=== PATIENT | male | born 1945 | race Caucasian/White ===

== ENCOUNTER 2024-11-03 08:11 | Outpatient (CLI) | payer MEDICARE, SELFPAY ==
--- NOTE | ~2024-11-03 | CT_ITS ---
EXAMINATION: CT abdomen pelvis wo/w con DATE: 11/03/2024 09:07 INDICATION: Hematuria. TECHNIQUE: Computed tomography (CT) of the abdomen and pelvis was performed without and with intraven ous contrast using a total of 130 mL Omnipaque-350 intravenous contrast with a double-bolus technique for simultaneous opacification of the renal parenchyma and renal collecting system. Automated exposu re control and iterative reconstruction technique were employed. The dose-length product was 1794.10 mGy-cm. COMPARISON: None FINDINGS: The visualized portions of the lung bases demonstrate mild atelectasis. There is a 5 mm nodule in lef t lower lobe, likely benign. No pleural effusion. The heart size is normal. No pericardial effusion. There are coronary artery calcifications. There are calcifications of the aortic valve. Calcification s in the liver and spleen are consistent with old granulomatous disease. The gallbladder, pancreas, a drenal glands, and right kidney are normal. There is a 1.9 cm cyst in left kidney. The ureters are we ll opacified and are normal. The bladder is normal. The prostate is moderately enlarged. There are bi lateral inguinal hernias containing fat. Stool distends the rectum. There are no pathologically enlar ged lymph nodes. There is no free intraperitoneal fluid. There is severe lumbar spondylosis. There is moderate thoracic spondylosis. IMPRESSION: 1. No etiology for hematuria. Reviewed, dictated and finalized at location A. TERY COUNSELOR
--- NOTE | ~2024-11-03 | XR_ITS ---
EXAMINATION: XR abdomen/kub 1V DATE: 11/03/2024 08:35 INDICATION: Hematuria. TECHNIQUE: A supine view of the abdomen on 2 radiographs was obtained. COMPARISON: CT abdomen and pelvis 11/03/2024 FINDINGS: There are no dilated loops of bowel. There is a large volume of stool in the colon. There a re phleboliths in the pelvis. IMPRESSION: 1. No urolithiasis. Reviewed, dictated and finalized at location A. L BILLING SPECIALIST IMPRESSION: 1. No urolithiasis.
--- OUTSIDE RECORDS SUMMARY | 2024-11-03 08:16 | XMS_ITS | Clinical Summary ---
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 Telephone Name Role Phone HIRO HAINES MD Primary Care Provider Reason for Visit and Chief Complaint The Chief Complaint is: 6 month check up, has a trigger finger on his right hand, has had carpal tunnel surgery on that side twice, had a test done at [facility] that he would like to discuss Problems Includes: Problems addressed during this encounter and other active Problems Current Visit Onset Date Resolved Date Provider Conditio n Status Actinic Keratosis 12/30/2011 HIRO HAINES MD Active Last Documented On 2 3:40PM ; [facility] Benign Prostatic Hypertrophy 12/30/2011 HIRO HAINES MD Active Last Documented On 2 11:16PM ; [facility] Hyperlipidemia 01/16/2009 HIRO HAINES MD Active Last Documented On 0 2:41PM ; [facility] Past Visits Onset Date Resolved Date Provider Condition Status Trigger Finger of Right Middle Finger 05/27/2023 JOSE RDZ DO Active Last Documented On 3 2:33PM ; [facility] Tenosynovitis De Quervain's 04/30/2022 MERCEDES Archer Active Last Documented On 2 9:27AM ; [facility] Note: left Carpal Tunnel Syndrome Right 12/25/2021 MERCEDES Archer Active Last Documented On 2 9:53AM ; [facility] Note: right carpal tunnel revision on 08/[address] 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 TONO ONEIL MD Active Last Documented On 1 3:46PM ; [facility] Tingling of the Hands 12/06/2019 HIRO DIAZ MD Active Last Documented On 09/16/2021 1:52PM ; [facility] Note: Unchanged Sciatica 09/19/2019 OLGA LIDIA RILEY PA-C Act david Last Documented On 09/19/2019 3:30PM ; [facility] Note: --has done bee venom therapy which has helped Plan of Treatment Referred to cardiology Dr. Lozano for elevated calcium score and positive family history. Refills on medication are provided to the patient. Your heart disease risk assessment score for the next 10 years is 22.8%. Reviewed recent labs with the patient and all questions were answered. We discussed lifestyle recommendations including the importance of a healthy diet and exercising as tolerated. Maintain a healthy diet. Encouraged to walk in the form of exercise. Stay well hydrated. Have more water. Follow up as scheduled. IReta, scribing the following service on behalf of Dr. Martha Kamara on 04/06/2023. This note has been reviewed by the provider before submitting. - Last Documented On 04/11/2023 5:52PM ; [facility] Pending Tests Order Diagnosis Results Due Ordering P [place] Therapy - Physical Therapy Physical Therapy Pain in right wrist 10/05/23 HIRO NGUYEN MD Last Documented On 4 4:06PM ; [facility] Therapy - Occupational Therapy Occupational Therapy Pain in right wrist 10/05/23 HIRO HAINES MD Last Documented On 4 4:06PM ; [facility] Lab LIPID PANEL 04/02/24 HIRO MATTHEWS MD Last Documented On 4 8:04AM ; [facility] Lab CMP 04/02/24 HIRO DIAZ MD Last Documented On 4 8:04AM ; [facility] Referrals To Diagnosis Fruit Bar Maker THIEN LOZANO MD [place] heart d isease of augustine coronary artery w/o ang pctrs Note: Referred to cardiology Dr. Lozano for elevated calcium score and positive family history. 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] Coronary artery disease - Last Documented On 04/11/2023 5:52PM ; [facility] - [N40.0 - Benign prostatic hyperplasia without lower urinary tract symptoms] Benign prostatic hypertrophy - Last Documented On 04/11/2023 5:52PM ; [facility] - [E78.2 - Mixed hyperlipidemia] Hyperlipidemia - Last Documented On 04/11/2023 5:52PM ; [facility] - [L57.0 - Actinic keratosis] Actinic keratosis - Last Documented On 04/11/2023 5:52PM ; [facility] - [M65.30 - Trigger finger, unspecified finger] Right trigger finger (acquired) - Last Documented On 04/11/2023 5:52PM ; [facility] Instructions Includes: Instructions from this encounter Education and Decision Aids were provided during visit for: Patient education about home safety plans for prevention of falls : Patient completed a Fall risk assesment and was provided fall risk education materials Last Documented On 3 8:11AM ; [facility] Medical Equipment - Implanted Devices Includes: Current Devices No Medical Equipment Recorded Medications Includes: Medications discussed during this encounter and other current Medications New / Renewed during this visit HIRO HAINES MD on 04/06/2023 Rosuvastatin Calcium 10 MG Oral Tablet Provider: HIRO Caro 90 day supply: 90 tablet, 3 refills Diagnosis: Mixed hyperlipidemia TAKE 1 TABLET BY MOUTH AT BEDTIME Pharmacy: [facility] - [address] [place] [address], [id number] - Last Documented On 3 8:50AM By HIRO HAINES MD ; [facility] Current Medications (continue as prescribed) Tadalafil 5 MG Oral Tablet 10/05/2023 Provider: Suzi HAINES MD Diagnosis: One tablet daily or can take 2-4 tablets (10-20mg) every 72 hours prn sexual activity Last Documented On 4 9:30AM By HIRO HAINES MD ; [facility] EQ Aspirin Adult Low Dose 81 MG Oral Tablet Delayed Release 07/14/2023 Provider: THIEN LOZANO MD Diagnosis: Last Documented On 10/05/2023 8:14AM By Melany HENRIQUEZ ; [facility] Melatonin 5 MG Oral Capsule 10/06/2022 Provider: Diagnosis: Last Documented On 10/06/2022 10:00AM By Melany HENRIQUEZ ; [facility] Tamsulosin HCl 0.4MG Oral Capsule 04/05/2019 Provide r: Diagnosis: Last Documented On 9 9:16AM By HIRO HAINES MD ; [facility] Medications Administered Includes: Administered Medications from this encounter No Administered Medications Recorded Vital Signs Includes: Vital Signs from this encounter Vital Name 04/06/2023 08:11A Blood Pressure Sitting R 122/82 BP Cuff Size Regular Pulse Rate-Sitting (bpm) 72 Respiration Rate (breaths/min) 18 Height (in) 73 Weight (lb) 204 Body Mass Index 26.9 Body Surface Area 2.2 Oxygen Saturation (%) 96 Last Documented: On 04/06/2023 8:19AM ; [facility] Results Includes: Results discussed during this encounter No Results Recorded For Specified Dates History of Present Illness Includes: History of Present Illness from this encounter HPI ARTUR ROMERO is a 77 year old male. Source of patient information was patient ? Allergy list reviewed ? Medication list reviewed - Feeling fine - No chest pain or discomfort - No dyspnea - and No cough - No abdominal pain Artur Romero is a pleasant 77-year-old male who presents to our clinic for a 6-month check-up. He has a trigger finger on his right hand. He has had carpal tunnel surgery on that side twice. He had a test done at [facility] that he would like to discuss today. He has a chronic cough. His blood pressure is well-controlled in the clinic today at 122/82. He denies any chest pain, palpitations, or shortness of breath. He is eating well. He is also sleeping well with melatonin. His bowels are moving well. He has lost 3 lbs since his last visit which was in 09/2022, and he currently weighs 204 lbs. He has a history of hyperlipidemia for which he is taking rosuvastatin 10 mg as directed with no concerns. Reviewed blood work with the patient. PSA is normal at 0.9, and CMP is within the normal range. His lipid panel revealed that his total cholesterol is normal at 194, HDL is 61, LDL 119, and triglycerides are 68. All questions are answered to the patient's satisfaction. He states that every time he walked in pain.Of note, he had a ruptured disc a long time ago. Later, he saw a chiropractor three or four times for the same without benefit. He states that it was like sticking a knife to his back . He states that he went to the point where he started to lose the muscle tone in his legs. He worked on it himself. Later, he started to walk again, and it helped with his pain. So he is fine now, just thought it was weird. He lost his one brother in November from heart disease. He was the middle boy in the family. Artur is the oldest and his youngest brother just had bipass surgery after a cardiac calcium test prompted by a the middle brother dying. Artur had the calcium test done and his score was low. 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 Last Documented On 3 8:10AM ; [facility] Smoking Status Unknown Procedures and Surgical History Includes: Procedures from this encounter Procedures Code Diagnosis Performing Provider Service L ocation Service Date education and instructions Last Documented On 3 8:56AM ; [facility] explanation of plan : patien t/guardian states understanding of and agreement to treatment options and plan Last Documented On 3 8:56AM ; [facility] medication list reviewed Last Documented On 3 8:56AM ; [facility] use of tobacco assessment performed 1000F Last Documented On 3 8:11AM ; [facility] standardized depression screening: negative for symptoms [id number] Last Documented On 3 8:11AM ; [facility] screening for adult depressi on: impression and score not recorded contraindicated Last Documented On 3 8:11AM ; [facility] screening for adult depression: impressi on and score 0 Last Documented On 3 8:11AM ; [facility] Reviewed & agreed to staff entries. Last Documented On 3 8:56AM ; [facility] Clinical summary provided to patient Last Documented On 3 8:56AM ; [facility] reviewed laboratory-based chemistry Last Documented On 3 8:35AM ; [facility] Henrietta heart disease risk assessment 22.8 Last Documented On 3 8:38AM ; [facility] Surgical History Last Updated History of appendectomy AGE 13 ~eyelid lift faustina 3-20 ~RT carpal tunnel 06/2020 Dr. Garcia. ~LT carpal tunnel 01/2020 Dr. Garcia. ~second right carpal tunnel surgery 5-22 Dr Rdz 10/06/2022 Last Documented On 3 8:10AM ; [facility] Prior surgery 12/25/2021 Last Documented On 3 8:10AM ; [facility] Medical History Includes: Medical History addressed during this encounter Description Last Updated No recent change in medical history 10/21 Last Documented On 3 8:10AM ; [facility] Please list all surgeries Carpal tunnel . 12/10/2020 Last Documented On 3 8:10AM ; [facility] History of arthritis ~Benign prostatic h ypertrophy 07/26/2020 Last Documented On 3 8:10AM ; [facility] History of hyperlipidemia 07/26/2020 Last Documented On 3 8:10AM ; [facility] Family History Includes: Family History addressed during this encounter Description Last Updated Paternal history of stroke/paralysis Last Documented On 3 8:10AM ; [facility] Family history of high cholesterol 12/03 Last Documented On 3 8:10AM ; [facility] Family history unchanged 10/15/2017 Last Documented On 3 8:10AM ; [facility] Review of Systems Includes: Review of Systems from this encounter Systemic: No edema. Head: No headache. Cardiovascular: No chest pain or discomfort. Pulmonary: No shortness of breath. Neurological: No dizziness and no ataxia. Psychological: No fear of falling. Past Medical: No fall in the past 6 months. Mental Status Includes: Mental Status from this encounter Description The memory was unimpaired Judgement was not impaired Functional Status Includes: Functional Status from this encounter No Functional Status Recorded Physical Exam Includes: Physical Exam from this encounter Allergies Includes: Active Allergies Substance Type Reaction Onset Date Resolved Date Statu s Welchol Allergy CONSTIPATION 04/05/2019 Active Last Documented On 4 2:57PM ; [facility] Encounters Encounter Provider Location Date Check-In Time Check-Out Time Diagnosis CHECK UP HIRO HAINES MD [facility] 04/06/20 23 8:07AM 8:59AM Hyperlipidemi a,Benign Prostatic Hypertrophy,A ctinic Keratosis,Ten osynovitis - Trigger Finger Right (Acquired),Co ronary Artery Disease Insurance Includes: Active Insurance Policies Plan Name Member ID Group # Subscriber Relationship Effect david Dates 1 - MEDICARE PART A CLAIMS/NGS [id number] ARTUR Brewster JOELLE Edinson 08/20/2011 - Unknown 2 - [employer] MEDICARE SUPPLEMENT [id number] ARTUR Neves Clinical Notes Includes: Clinical Notes from this encounter * Progress note Date Encounter Last Documented by 04/06/2023 CHECK UP Last documented on 04/11/2023; 5:52 PM, HIRO HAINES MD; [facility] Active Problems & Conditions - L57.0 - Actinic Keratosis - N40.0 - Benign Prostatic Hypertrophy - G56.01 - Carpal Tunnel Syndrome Right - right carpal tunnel revision on 01/28/[address] Rdz - E78.2 - Hyperlipidemia - G56.11 - Other Lesion of Median Nerve - Sciatica - --has done bee venom therapy which has helped - M65.4 - Tenosynovitis De Quervain's - left - R20.2 - Tingling of the Hands Chief Complaint The Chief Complaint is: 6 month check up, has a trigger finger on his right hand, has had carpal tunnel surgery on that side twice, had a test done at [facility] that he would like to discuss. History of Present Illness ARTUR ROMREO is a 77 year old male. Source of patient information was patient - Allergy list reviewed - Medication list reviewed - Feeling fine - No chest pain or discomfort - No dyspnea - and No cough - No abdominal pain Artur Romero is a pleasant 77-year-old male who presents to our clinic for a 6-month check-up. He has a trigger finger on his right hand. He has had carpal tunnel surgery on that side twice. He had a test done at [facility] that he would like to discuss today. He has a chronic cough. His blood pressure is well-controlled in the clinic today at 122/82. He denies any chest pain, palpitations, or shortness of breath. He is eating well. He is also sleeping well with melatonin. His bowels are moving well. He has lost 3 lbs since his last visit which was in 09/2022, and he currently weighs 204 lbs. He has a history of hyperlipidemia for which he is taking rosuvastatin 10 mg as directed with no concerns. Reviewed blood work with the patient. PSA is normal at 0.9, and CMP is within the normal range. His lipid panel revealed that his total cholesterol is normal at 194, HDL is 61, LDL 119, and triglycerides are 68. All questions are answered to the patient's satisfaction. He states that every time he walked in pain.Of note, he had a ruptured disc a long time ago. Later, he saw a chiropractor three or four times for the same without benefit. He states that it was like sticking a knife to his back . He states that he went to the point where he started to lose the muscle tone in his legs. He worked on it himself. Later, he started to walk again, and it helped with his pain. So he is fine now, just thought it was weird. He lost his one brother in November from heart disease. He was the middle boy in the family. Artur is the oldest and his youngest brother just had bipass surgery after a cardiac calcium test prompted by a the middle brother dying. Artur had the calcium test done and his score was low. Current Medication - [facility] Melatonin 5 MG Oral Capsule 0 days, 0 refills - Rosuvastatin Calcium 10 MG Oral Tablet TAKE 1 TABLET BY MOUTH AT BEDTIME, 90 days, 0 refills - Tamsulosin HCl 0.4MG Oral Capsule 0.4 MG One tablet daily 0 days, 0 refills Past Medical/Surgical History Reported: No recent change in medical history and Please list all surgeries: Carpal tunnel . . Surgical / Procedural: Prior surgery. Diagnoses: Hyperlipidemia. Arthritis Benign prostatic hypertrophy Surgical: - Appendectomy AGE 13 eyelid lift faustina -20 RT carpal tunnel 06/2020 Dr. Garcia. LT carpal tunnel 01/2020 Dr. Garcia. second right carpal tunnel surgery 02-08 Dr Rdz Social History Difficulty walking. Tobacco use: Current nonsmoker. 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 Functional: [PHQ-2] Patient Health Questionnaire 2 item total score: 2 (Scale: 0-6). Allergies - Welchol Reaction: CONSTIPATION Family History Family history unchanged High cholesterol Paternal: Stroke/paralysis Review Of Systems Systemic: No edema. Head: No headache. Cardiovascular: No chest pain or discomfort. Pulmonary: No shortness of breath. Neurological: No dizziness and no ataxia. Psychological: No fear of falling. Past Medical: No fall in the past 6 months. Physical Findings - Vitals taken 04/06/2023 08:11 am BP-Sitting R 122/82 mmHg 100 - 120/60 - 80 BP Cuff Size Regular Pulse Rate-Sitting 72 bpm 50 - 100 Respiration Rate 18 per min 18 - Height 73 in 64 - 74 Weight 204 lbs 121 - 205 Body Mass Index 26.9 kg/m2 Body Surface Area 2.2 m2 Oxygen Saturation 96 % 93 - 100 General Appearance: - Alert. - Well developed. - Well nourished. - In no acute distress. Ears: Right Ear: Tympanic Membrane: - Normal. Left Ear: Tympanic Membrane: - Normal. Lymph Nodes: - Normal. Lungs: - Clear to auscultation. Cardiovascular: Heart Rate And Rhythm: - Normal. Murmurs: - No murmurs were heard. Edema: - Not present. Abdomen: Palpation: - No direct tenderness in the abdomen. Neurological: - Memory was unimpaired. - Judgement was not impaired. Psychiatric: Psychiatric: Value Normal Range PHQ9 score: 0 - Mood was calm. Skin: - Normal. - Mucous membranes were not dry. Tests Laboratory-based Chemistry: Reviewed laboratory-based chemistry. Laboratory Studies: Cardiac Evaluation: [place] heart disease risk assessment 22.8. 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 - Medication list reviewed. - Education and instructions. - Clinical summary provided to patient. - Explanation of plan: patient/guardian states understanding of and agreement to treatment options and plan. Plan StartCited - Athscl heart disease of augustine coronary artery w/o ang pctrs Referral: Fruit Bar Maker Instructions: Referred to cardiology Dr. Lozano for elevated calcium score and positive family history. EndCited StartCited - Mixed hyperlipidemia Lab: LIPID PANEL Lab: CMP Rosuvastatin Calcium 10 MG tablet TAKE 1 TABLET BY MOUTH AT BEDTIME, 90 days, 3 refills EndCited StartCited - Other Follow-up 6 months labs before EndCited Referred to cardiology Dr. Lozano for elevated calcium score and positive family history. Refills on medication are provided to the patient. Your heart disease risk assessment score for the next 10 years is 22.8%. Reviewed recent labs with the patient and all questions were answered. We discussed lifestyle recommendations including the importance of a healthy diet and exercising as tolerated. Maintain a healthy diet. Encouraged to walk in the form of exercise. Stay well hydrated. Have more water. Follow up as scheduled. Reta Chavez, scribing the following service on behalf of Dr. Martha Kamara on 04/06/2023. This note has been reviewed by the provider before submitting. Practice Management Use of tobacco assessment performed; Standardized depression screening: negative for symptoms Screening for adult depression: impression and score not recorded contraindicated Screening for adult depression: impression and score 0. Health Reminders - Assess BMI satisfied 04/06/2023. - Assess Screening for Fall Risk satisfied 04/06/2023. - Assess Tobacco Use satisfied 04/06/2023. - Depression Screening satisfied 04/06/2023. - Follow up plan for Depression Screening satisfied 04/06/2023. User Defined 25 Patient education about home safety plans for prevention of falls: Patient completed a Fall risk assesment and was provided fall risk education materials.
--- OUTSIDE RECORDS SUMMARY | 2024-11-03 08:16 | XMS_ITS | Referral Summary ---
Author Organization [facility] Address [address] [place] [address] Care Team Providers Care Drafting Clerk Name Role Phone Anh Jeong MD Primary Care Provider + Source Comments [facility],non-owned Affiliates and Associated Physician Practices is amultiple site organization consisting of ambulatory clinics and hospital sitesin [place], [place], [place] and [place]. This disclosure is being madepursuant to the Care Everywhere program and may not contain all information available regarding this patient. Last updated 18.[facility] Medications * Be aware that medications may not be up to date on this document. Alwaysverify current medications with the patient. Medication Sig Dispensed Refills Start Date End Date Status colesevelam (WELCHOL) 625 MG tablet Take 1,875 mg by mouth. 03/25/2017 Active tamsulosin (FLOMAX) 0.4 MG capsule Take 0.4 mg by mouth. 05/01/2016 Active Social History Tobacco Use Types Packs/Day Years Used Date Smoking Tobacco: Never Alcohol Use Standard Drinks/Week Comments Yes 0 (1 standard drink = 0.6 oz pur e alcohol) Sex and Gender Information Value Date Recorded Sex Assigned at Not on file Gender Identity Not on file Sexual Orientation Not on file Last Filed Vital Signs Vital Sign Reading Time Taken Comments Blood Pressure - - Pulse - - Temperature - - Respiratory Rate - - Oxygen Saturation - - Inhaled Oxygen Concentration - - Weight 90.7 kg (200 lb) 03/25/2017 2:18 PM CDT Height 182.9 cm (6') 03/25/2017 2:18 PM CDT Body Mass Index 27.12 03/25/2017 2:18 PM CDT Plan of Treatment Not on file Care Teams Drafting Clerk Relationship Specialty Start Date End Date Anh Jeong MD [address] [place] [address] PCP - General 03/26/17
--- OUTSIDE RECORDS SUMMARY | 2024-11-03 08:16 | XMS_ITS | Clinical Summary ---
Author Organization [facility] Address [address] [place] [address] Phone Care Team Providers Care Television Journalist Name Role Phone HIRO HAINES MD Primary Care Provider Reason for Visit and Chief Complaint The Chief Complaint is: check up, a couple months ago he fell while sleep walking and hurt his leftshoulder which is still bothering him, his right knee is also bothering him, having trouble with constipation, has a BM once every 2-3 days, hard to go, prunes help, has a spot on his right pointer finger that is getting bigger Problems Includes: Problems addressed during this encounter and other active Problems Current Visit Onset Date Resolved Date Provider Conditio n Status Hyperlipidemia 01/16/2009 HIRO HAINES MD Active Last Documented On 0 2:41PM ; [facility] Past Visits Onset Date Resolved Date Provider Condition Status Trigger Finger of Right Middle Finger 05/27/2023 JOSE RDZ DO Active Last Documented On 3 2:33PM ; [facility] Tenosynovitis De Quervain's 04/30/2022 MERCEDES Archer Active Last Documented On 2 9:27AM ; [facility] Note: left Carpal Tunnel Syndrome Right 12/25/2021 MERCEDES Archer Active Last Documented On 2 9:53AM ; [facility] Note: right carpal tunnel revision on 08/[address] 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 TONO ONEIL MD Active Last Documented On 1 3:46PM ; [facility] Tingling of the Hands 12/06/2019 HIRO DIAZ MD Active Last Documented On 09/16/2021 1:52PM ; [facility] Note: Unchanged Sciatica 09/19/2019 OLGA LIDIA RILEY PA-C Act david Last Documented On 09/19/2019 3:30PM ; [facility] Note: --has done bee venom therapy which has helped Actinic Keratosis 12/30/2011 HIRO HAINES MD Active Last Documented On 2 3:40PM ; [facility] Benign Prostatic Hypertrophy 12/30/2011 HIRO HAINES MD Active Last Documented On 2 11:16PM ; [facility] Plan of Treatment ask derm this week ( wednesday appt) about spot on finger. Ordered labs for next time. [facility]. Try Voltaren gel to help with pain in his right knee and left shoulder. We discussed lifestyle recommendations including the importance of a healthy diet and exercising as tolerated. Maintain a healthy diet. Encouraged to walk in the form of exercise. Stay well hydrated. Have more water. - Last Documented On 10/06/2022 11:47PM ; [facility] Pending Tests Order Diagnosis Results Due Ordering P rovider Therapy - Physical Therapy Physical Therapy Pain in right wrist 10/05/23 HIRO NGUYEN MD Last Documented On 4 4:06PM ; [facility] Therapy - Occupational Therapy Occupational Therapy Pain in right wrist 10/05/23 HIRO HAINES MD Last Documented On 4 4:06PM ; [facility] Lab LIPID PANEL 04/02/24 HIRO MATTHEWS MD Last Documented On 4 8:04AM ; [facility] Lab CMP 04/02/24 HIRO DIAZ MD Last Documented On 4 8:04AM ; [facility] Education and Decision Aids were provided during visit for: Patient education about home safety plans for prevention of falls : Patient completed a Fall risk assesment and was provided fall risk education materials Last Documented On 3 9:55AM ; [facility] Assessments Includes: Assessments from this encounter Findings - [E78.2 - Mixed hyperlipidemia] Hyperlipidemia - Last Documented On 10/06/2022 11:47PM ; [facility] - [M25.512 - Pain in left shoulder] Arthralgia of left shoulder region - Last Documented On 10/06/2022 11:47PM ; [facility] - [M25.561 - Pain in right knee] RIGHT KNEE PAIN - Last Documented On 10/06/2022 11:47PM ; [facility] Instructions Includes: Instructions from this encounter Education and Decision Aids were provided during visit for: Patient education about home safety plans for prevention of falls : Patient completed a Fall risk assesment and was provided fall risk education materials Last Documented On 3 9:55AM ; [facility] Medical Equipment - Implanted Devices Includes: Current Devices No Medical Equipment Recorded Medications Includes: Medications discussed during this encounter and other current Medications Current Medications (continue as prescribed) Tadalafil 5 MG Oral Tablet 10/05/2023 Provider: Suzi HAINES MD Diagnosis: One tablet daily or can take 2-4 tablets (10-20mg) every 72 hours prn sexual activity Last Documented On 4 9:30AM By HIRO HAINES MD ; [facility] EQ Aspirin Adult Low Dose 81 MG Oral Tablet Delayed Release 07/14/2023 Provider: THIEN DU MD Diagnosis: Last Documented On 10/05/2023 8:14AM By Melany HENRIQUEZ ; [facility] Rosuvastatin Calcium 10 MG O ral Tablet 04/06/2023 Provider: HIRO Caro Diagnosis: Mixed hyperlipid emia TAKE 1 TABLET BY MOUTH AT BEDTIME Last Documented On 3 8:50AM By HIRO HAINES MD ; [facility] Melatonin 5 MG Oral Capsule 10/06/2022 Provider: Diagnosis: Last Documented On 10/06/2022 10:00AM By Melany HENRIQUEZ ; [facility] Tamsulosin HCl 0.4MG Oral Capsule 04/05/2019 Provide r: Diagnosis: Last Documented On 9 9:16AM By HIRO HAINES MD ; [facility] Medications Administered Includes: Administered Medications from this encounter No Administered Medications Recorded Vital Signs Includes: Vital Signs from this encounter Vital Name 10/06/2022 10:01A Blood Pressure Sitting L 130/82 BP Cuff Size Regular Pulse Rate-Sitting (bpm) 69 Respiration Rate (breaths/min) 18 Temp-Oral (F) 98 Height (in) 73 Weight (lb) 207 Body Mass Index 27.3 Body Surface Area 2.2 Oxygen Saturation (%) 96 Last Documented: On 10/06/2022 10:05A M ; [facility] Results Includes: Results discussed during this encounter No Results Recorded For Specified Dates History of Present Illness Includes: History of Present Illness from this encounter CONOR ROMERO is a 77 year old male. Source of patient information was patient ? Allergy list reviewed ? Medication list reviewed - Feeling fine - No chest pain or discomfort - No dyspnea - and No cough - No abdominal pain Artur Romero is a pleasant 77-year-old male who presents to our clinic for a 6-month follow up. He looks exhausted today. He states a couple of months ago, he fell while sleep walking and hurt his left shoulder which is still bothering him. His right knee is also bothering him. He uses bee stings on his right knee. The stings have helped. He further reports a spot on his right pointer finger that is getting bigger. He takes vitamin D supplements. He has seen Dr. Rdz, orthopedic last year in January 2022 who did right carpal tunnel surgery as it had chronic pain, and it seems to have helped. Previously, he had one surgery with Dr. Garcia, but it was not a success. His blood pressure is well-controlled in the clinic today at 130/82. He denies any chest pain, palpitations, or shortness of breath. He has gained 5 lbs since 03/2022 and he currently weighs 207 lbs. He also reports having trouble with constipation. He has a BM once every 2-3 days. It is hard for him to go. He eats 3 prunes every couple of days and that helps. 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 04/05/2019 Last Documented On 3 9:54AM ; [facility] Smoking Status Unknown Procedures and Surgical History Includes: Procedures from this encounter Procedures Code Diagnosis Performing Provider Service L ocation Service Date education and instructions Last Documented On 3 10:35AM ; [facility] explanation of plan : patien t/guardian states understanding of and agreement to treatment options and plan Last Documented On 3 10:35AM ; [facility] medication list reviewed Last Documented On 3 10:35AM ; [facility] use of tobacco assessment performed 1000F Last Documented On 3 9:55AM ; [facility] Reviewed & agreed to staff entries. Last Documented On 3 10:35AM ; [facility] Clinical summary provided to patient Last Documented On 3 10:35AM ; [facility] Surgical History Last Updated History of appendectomy AGE 13 ~eyelid lift faustina 3-20 ~RT carpal tunnel 06/2020 Dr. Garcia. ~LT carpal tunnel 01/2020 Dr. Garcia. ~second right carpal tunnel surgery - Dr Rdz 10/06/2022 Last Documented On 3 11:47PM ; [facility] Prior surgery 12/25/2021 Last Documented On 3 9:54AM ; [facility] Medical History Includes: Medical History addressed during this encounter Description Last Updated Please list all surgeries Carpal tunnel . 12/10/2020 Last Documented On 3 9:54AM ; [facility] History of arthritis ~Benign prostatic h ypertrophy 07/26/2020 Last Documented On 3 9:54AM ; [facility] History of hyperlipidemia 07/26/2020 Last Documented On 3 9:54AM ; [facility] Family History Includes: Family History addressed during this encounter Description Last Updated Paternal history of stroke/paralysis Last Documented On 3 9:54AM ; [facility] Family history of high cholesterol 12/03 Last Documented On 3 9:54AM ; [facility] Review of Systems Includes: Review of Systems from this encounter Systemic: No edema. Head: No headache. Cardiovascular: No chest pain or discomfort. Pulmonary: No shortness of breath. Neurological: Dizziness. No ataxia. Psychological: No fear of falling. Past [...] Active Last Documented On 4 2:57PM ; [facility] Encounters Encounter Provider Location Date Check-In Time Check-Out Time Diagnosis CHECK UP [facility]IN[facility] 10/06/19 23 9:48AM 10:43AM Arthralgia - Shoulder Region Left,Right Knee Pain,Hyperlipi demia Insurance Includes: Active Insurance Policies Plan Name Member ID Group # Subscriber Relationship Effect david Dates 1 - MEDICARE PART A CLAIMS/NGS [id number] ARTUR Neves 08/20/2011 - Unknown 2 - [employer] MEDICARE SUPPLEMENT [id number] ARTUR Neves Clinical Notes Includes: Clinical Notes from this encounter No Clinical Notes Recorded
--- OUTSIDE RECORDS SUMMARY | 2024-11-03 08:16 | XMS_ITS | Clinical Summary ---
Author Organization [facility] Address [address] [place] [id number] Care Team Providers Care Yard Rigger Name Role Phone Unavailable Primary Care Provider Unavailabl e Social History Tobacco Use Types Packs/Day Years Used Date Smoking Tobacco: Never Assessed Sex and Gender Information Value Date Recorded Sex Assigned at Not on file Legal Sex Male 8:50 AM CDT Gender Identity Not on file Sexual Orientation Not on file Plan of Treatment Health Maintenance Due Date Last Done Comments DTAP/TDAP/TD VACCINES (1 - Tdap) 1964 PNEUMOCOCCAL VACCINE 65+ YEARS (1 of 1 - PCV) 09/17/19 96 ZOSTER VACCINE (1 of 2) 1996 RSV VACCINE (60+ or ) (1 - 1-dose 75+ series) 2021 INFLUENZA VACCINE (#1) 2024 Insurance MEDICARE PART A AND B
--- OUTSIDE RECORDS SUMMARY | 2024-11-03 08:16 | XMS_ITS | Referral Summary ---
Author Organization [facility] [address] [facility] Address [address] [place] [address] Care Team Providers Care Manufactured Buildings Repairer Name Role Phone Elving-DialAnh MD Primary Care Provider Allergies No known active allergies Medications tamsulosin (FLOMAX) 0.4 mg extended release capsule daily 05/01/2016 Active rosuvastatin (CRESTOR) 20 mg tabletIndication s:Atherosclerosi s of tolowa dee-ni' coronary artery of tolowa dee-ni' heart without angina pectoris,Elevate d coronary artery calcium score,Hyperlipid emia LDL goal <70 Take 1 tablet (20 mg total) by mouth daily 90 tablet 3 06/08/2023 Active aspirin 81 mg enteric coated tabletIndication s:Atherosclerosi s of [place] de[place]-ni' coronary artery of [place]low[place] dee-ni' heart without angina pectoris,Elevate d coronary artery calcium score Take 1 tablet (81 mg total) by mouth daily 30 tablet 11 06/08/2023 Active Active Problems Problem Noted Date Diagnosed Date RBBB 03/31/2024 Erectile dysfunction 09/23/2023 Elevated coronary artery calcium score 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 06/08/2023 Family history of coronary artery disease 2022 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/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 Disturbance of skin sensation 12/06/2019 Overview (02/26/2021): Note: Unchanged Sciatica 09/19/2019 Overview (02/26/2021): Note: --has done bee venom therapy which has helped Peripheral vertigo, right 02/23/2019 Noise-induced hearing loss of both ears 02/24/20 19 Vertigo 02/02/2019 Otitis externa, fungal, left ear 02/02/2019 Impacted cerumen of left ear 02/02/2019 Acquired stenosis of external ear canal, left Benign prostatic hyperplasia with lower urinary tract symptoms 12/30/2011 Actinic keratosis 12/30/2011 Hyperlipidemia LDL goal <70 01/16/2009 Social History Tobacco Use Types Packs/Day Years Used Date Smoking Tobacco: Never Cigarettes Passive Smoke Exposure: Past Smokeless Tobacco: Never Tobacco Cessation:Counseling Given: Not Answered AUDIT-C Answer Date Recorded Q1: How often do you have a drink containing alc ohol? 2-3 times a week 06/08/2023 Q2: How many drinks containi ng alcohol do you have on a typical day when you are drinking? 1 or 2 06/08/2023 Q3: How often do you have si x or more drinks on one occasion? Never 06/08/2023 Personal Safety Answer Date Recorded Getting School Help Needed Not on file 09/07 Sex and Gender Information Value Date Recorded Sex Assigned at Not on file Legal Sex Male 8:23 AM CRITICAL CARE PHYSICIAN ASSISTANT Gender Identity Male 02/15/2021 10:13 AM CDT Sexual Orientation Straight 02/15/2021 10 :14 AM CDT Last Filed Vital Signs Vital Sign Reading Time Taken Comments Blood Pressure 138/82 03/31/2024 12:13 PM CDT Pulse 69 03/31/2024 9:22 AM CDT Temperature - - Respiratory Rate - - Oxygen Saturation 95% 03/31/2024 9:22 AM CDT Inhaled Oxygen Concentration - - Weight 92.1 kg (203 lb) 03/31/2024 9:22 AM CDT Height 182.9 cm (6') 03/31/2024 9:22 AM CDT Body Mass Index 27.53 03/31/2024 9:22 AM CDT Plan of Treatment Not on file Insurance MEDICARE COMMERCIAL GENERIC MEDICARE COMMERCIAL GENERIC MEDICARE COMMERCIAL GENERIC Care Teams Manufactured Buildings Repairer Relationship Specialty Start Date End Date Anh Jeong MD [address] [place] [id number] PCP - General Family Medicine 01/29/21
--- OUTSIDE RECORDS SUMMARY | 2024-11-03 08:16 | XMS_ITS | Encounter Summary ---
Author Organization [facility] Address [address] [place] [address] Care Team Providers Care Wire Mesh Gate Assembler Name Role Phone Anh Jeong MD Primary Care Provider + Encounter Details Date Type Department Care Team (Late st Contact Info) Description 02/16/2024 Lab Requisition [facility] - DermPath Lab [address] [facility] [place] [phone] Laci Foster Jr., MD [address] [place] [address] Social History Tobacco Use Types Packs/Day Years Used Date Smoking Tobacco: Never Alcohol Use Standard Drinks/Week Comments Yes 0 (1 standard drink = 0.6 oz pur e alcohol) Sex and Gender Information Value Date Recorded Sex Assigned at Not on file Gender Identity Not on file Sexual Orientation Not on file documented as of this encounter Plan of Treatment Not on file documented as of this encounter Procedures Procedure Name Priority Date/Time Associated Diagnosis Comments DERMATOPATHOLOGY Routine 02/15/2024 3:33 AM CDT documented in this encounter Results * DERMATOPATHOLOGY (02/15/2024 3:33 AM CDT) Case Report Dermatopathology Report Case: [id number] Authorizing Provider: Laci Foster Jr., MD Collected: 02/15/2024 03:33 AM Ordering Location: [facility] - Received: 02/16/2024 02:21 PM DermPath Lab Pathologist: Citlalli Crandall MD Specimen: Skin, right posterior shoulder 3:39 PM CDT DERMATOPATHOLOGY LABORATORY Final Diagnosis Specimen A. SKIN, right posterior shoulder: HYPERPLASTIC (HYPERTROPHIC) ACTINIC KERATOSIS (L57.0) 4 3:39 PM T DERMATOPATHOLOGY LABORATORY Clinical History Squamous Cell Carcinoma vs. Actinic Keratosis vs. Irritated Seborrheic Keratosis 4 3:39 PM CDT DERMATOPATHOLOGY LABORATORY Gross Description Specimen A: Received is one formalin filled container labeled with the patient's name and designated right posterior shoulder. The specimen consists of a shave biopsy measuring 8x7x2 mm. Jar 0. 3:39 PM CDT DERMATOPATHOLOGY LABORATORY Microscopic Description Specimen A. SKIN, right posterior shoulder: There is hyperkeratosis alternating with parakeratosis. There is epidermal hyperplasia with disorderly maturation of keratinocytes with nuclear pleomorphism confined to the lower half of the epidermis. 3:39 PM CDT DERMATOPATHOLOGY LABORATORY Disclaimer An external and internal positive and negative controls are appropriate for the histochemical, immunohistochemical and immunofluorescence stain(s) in this case (if any), except where stated explicitly. The performance characteristics of the stain(s) cited in this report were developed and its performance characteristic determined by the Dermatopathology Laboratory at [facility], directed by Dr. Bianca Crandall. These tests need not be, and therefore are not, approved by the [place] Food and Drug Administration. The tests are used for clinical purposes. Billing Codes Specimen Charges Stain Charges 38530 1 4 3:39 PM CDT DERMATOPATHOLOGY LABORATORY Embedded Images 3:39 PM CDT DERMATOPATHOLOGY LABORATORY Pathology/Cytolo gy TISSUE SPECIMEN FROM SKIN / Unknown 02/15/2024 3:33 AM CDT 02/16/2024 2:21 PM CDT Laci Foster Jr., MD LAB - PATHOLOGY /CYTOLOGY ORDERABLES DERMATOPATHOLOGY LABORATORY [facility] - Department of Dermatology [address] [phone] documented in this encounter Visit Diagnoses Not on filedocumented in this encounter Care Teams Wire Mesh Gate Assembler Relationship Specialty Start Date End Date Anh Jeong MD [address] [place] [phone] PCP - General 03/26/17 documented as of this encounter
--- OUTSIDE RECORDS SUMMARY | 2024-11-03 08:16 | XMS_ITS | Clinical Summary ---
Author Organization [facility] Address [address] [place] [address] Phone Care Team Providers Care Prenatal Nurse Name Role Phone Anh Thomas MD Primary Care Provider [phone] Orlando Singh MD Unavailable Unavailable Allergies No known active allergies Medications colesevelam (WELCHOL) 625 MG Tablet Take 1,875 mg by mouth 2 times daily. Active finasteride (PROSCAR) 5 MG Tablet Take 5 mg by mouth daily. Active nystatin-triamc inolone (MYCOLOG) 320074-5.1 UNIT/GM-% OintmentIndicat ions:Otitis externa, fungal, left ear Apply 3 times daily. Rub small amount into skin of outer portion of ear canal(s) BID prn using Q-tip 30 g 5 02/02/2019 Active tamsulosin (FLOMAX) 0.4 MG Capsule Take 1 capsule by mouth once daily 90 Cap 04/11/2020 Active Active Problems Problem Noted Date Diagnosed Date Peripheral vertigo, right 02/23/2019 Noise-induced hearing loss of both ears 02/24/20 19 Vertigo 02/02/2019 Impacted cerumen of left ear 02/02/2019 Otitis externa, fungal, left ear 02/02/2019 Acquired stenosis of external ear canal, left Benign prostatic hyperplasia with lower urinary tract symptoms 02/28/2016 Family History Medical History Relation Name Comments High Cholesterol Father Relation Name Status Comments Father Mother Social History Tobacco Use Types Packs/Day Years Used Date Smoking Tobacco: Never Smokeless Tobacco: Never Alcohol Use Standard Drinks/Week Comments Yes 0 (1 standard drink = 0.6 oz pur e alcohol) occasionally Sexually Active Control Partners Comments Yes Female Sex and Gender Information Value Date Recorded Sex Assigned at Not on file Legal Sex Male 10:08 PM CDT Gender Identity Not on file Sexual Orientation Not on file Last Filed Vital Signs Vital Sign Reading Time Taken Comments Blood Pressure 128/80 02/23/2019 1:57 PM CDT Pulse 72 02/23/2019 1:57 PM CDT Temperature 36 C (96.8 F) 02/23/2019 1:57 PM CDT Respiratory Rate 14 02/23/2019 1:57 PM CDT Oxygen Saturation 97% 02/23/2019 1:57 PM CDT Inhaled Oxygen Concentration - - Weight 89.8 kg (198 lb) 03/09/2019 8:18 AM CDT Height 182.9 cm (6') 02/23/2019 1:57 PM CDT Body Mass Index 26.85 02/23/2019 1:57 PM CDT Plan of Treatment Health Maintenance Due Date Last Done Comments Hepatitis C Virus (HCV) Screening 1945 Pneumococcal Immunization (50+ years) (1 of 1 - PCV) 1996 Zoster Immunization (1 of 2) 1996 Respiratory Syncytial Virus (RSV) Immunization (Adult) (1 - 1-dose 75+ series) 2021 Influenza Immunization (#1) 2024 SARS-COV-2 Immunization ( season) 2024 02/19/2021, 01/27/2021 DTaP/Tdap/Td Immunization Discontinued 05/09/2019 TdaP Immunization Completed 05/09/2019 Hepatitis B Immunization Aged Out No longer eligible based on patient's age to complete this topic Meningococcal Immunization (ACWY) Aged Out No longer eligible based on patient's age to complete this topic Rotavirus Immunization Aged Out No lo nger eligible based on patient's age to complete this topic Insurance MEDICARE COMMERCIAL GENERIC Care Teams Prenatal Nurse Relationship Specialty Start Date End Date Anh Thomas MD [address] [place] [address] PCP - General 02/26/16 Orlando Singh MD [address] [place] [address] Consulting Physician Urology 02/28/16
--- OUTSIDE RECORDS SUMMARY | 2024-11-03 08:16 | XMS_ITS ---
Care Plan - [facility] Created on: November 03, 2024 ROBE LAI : 1945 Sex: Male Author Organization [facility] Address [address] [place] [address] Phone Care Team Providers Care Physical Chemistry Professor Name Role Phone HIRO HAINES MD Primary Care Provider [phone]
--- OUTSIDE RECORDS SUMMARY | 2024-11-03 08:16 | XMS_ITS | Clinical Summary ---
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 Name Role Phone HIRO HAINES MD Primary Care Provider [phone] Reason for Visit and Chief Complaint visit for: right hand pain - The Chief Complaint is: C/O RT MIDDLE FINGER TRIGGERING, STATES IT IS STUCK Problems Includes: Problems addressed during this encounter and other active Problems Current Visit Onset Date Resolved Date Provider Conditio n Status Trigger Finger of Right Middle Finger 05/27/2023 JOSE RDZ DO Active Last Documented On 3 2:33PM ; [facility] Past Visits Onset Date Resolved Date Provider Condition Status Tenosynovitis De Quervain's 04/30/2022 MERCEDES Archer Active Last Documented On 04/30/2022 9:27AM ; [facility] Note: left Carpal Tunnel Syndrome Right 12/25/2021 MERCEDES Archer Active Last Documented On 02/09/2022 9:53AM ; [facility] Note: right carpal tunnel revision on 08/[address] 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 TONO ONEIL MD Active Last Documented On 3:46PM ; [facility] Tingling of the Hands 12/06/2019 HIRO DIAZ MD Active Last Documented On 09/16/2021 1:52PM ; [facility] Note: Unchanged Sciatica 09/19/2019 OLGA LIDIA RILEY PA-C Act david Last Documented On 09/19/2019 3:30PM ; [facility] Note: --has done bee venom therapy which has helped Actinic Keratosis 12/30/2011 HIRO HAINES MD Active Last Documented On 2 3:40PM ; [facility] Benign Prostatic Hypertrophy 12/30/2011 HIRO HAINES MD Active Last Documented On 2 11:16PM ; [facility] Hyperlipidemia 01/16/2009 HIRO HAINES MD Active Last Documented On 0 2:41PM ; [facility] Plan of Treatment We discussed conservative treatment such as trigger finger injection versus surgical trigger finger release. He wanted to move forward with trigger finger injection. This was provided for him today in the right long finger. He tolerated that injection without difficulty. He would need to wait three months before repeat injection. He can follow up with me on an as-needed basis. - Last Documented On 01/27/2024 3:25PM ; [facility] Assessments Includes: Assessments from this encounter Findings - [M65.331 - Trigger finger, right middle finger] Trigger finger of the right middle finger - Last Documented On 01/27/2024 3:25PM ; [facility] Medical Equipment - Implanted Devices Includes: Current [...] 4 9:30AM By HIRO HAINES MD ; [facility] EQ Aspirin Adult Low Dose 81 MG Oral Tablet Delayed Release 07/14/2023 Provider: THIEN DU MD Diagnosis: Last Documented On 10/05/2023 8:14AM By Melany HENRIQUEZ ; [facility] Rosuvastatin Calcium 10 MG O ral Tablet 04/06/2023 Provider: HIRO Caro Diagnosis: Mixed hyperlipid emia TAKE 1 TABLET BY MOUTH AT BEDTIME Last Documented On 3 8:50AM By HIRO HAINES MD ; [facility] Melatonin 5 MG Oral Capsule 10/06/2022 Provider: Diagnosis: Last Documented On 10/06/2022 10:00AM By Melany HENRIQUEZ ; [facility] Tamsulosin HCl 0.4MG Oral Capsule 04/05/2019 Provide r: Diagnosis: Last Documented On 9 9:16AM By HIRO HAINES MD ; [facility] Medications Administered Includes: Administered Medications from this encounter No Administered Medications Recorded Vital Signs Includes: Vital Signs from this encounter Vital Name 01/27/2024 03:06P Blood Pressure Sitting (mmHg) 146/82 Height (in) 73 Last Documented: On 01/27/2024 3:11PM ; [facility] Results Includes: Results discussed during this encounter No Results Recorded For Specified Dates History of Present Illness Includes: History of Present Illness from this encounter HPI ARTUR LAI is a 78 year old male. - Allergy list reviewed. Artur he is here today with chief complaint of his right middle finger being stuck in a flex position. He states this is been going on for about four or five months or maybe longer. He denies any numbness. He does have history of a revision carpal tower lease by Dr. Rdz. His primary care doctor sent him to therapy or belief that this was likely recurrent carpal tunnel symptoms. He does not have any numbness at this point. He denies any swelling but does describe pain along the anterior aspect of the third metacarpal head. He has to manually extend the finger to get to go straight. Denies any trauma. 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 None 10/05/2023 Last Documented On 4 3:04PM ; [facility] Tobacco non-user 02/28/2022 Last Documented On 4 3:04PM ; [facility] Former smoker 01/23/2022 Last Documented On 4 3:04PM ; [facility] Current nonsmoker 04/26/2021 Last Documented On 4 3:04PM ; [facility] [PHQ-2] Patient Health Questionnaire 2 i tem total score: 2 (Scale: 0-6) 12/10/2020 Last Documented On 4 3:04PM ; [facility] Difficulty walking 12/10/2020 Last Documented On 4 3:04PM ; [facility] No consumption of alcohol 12/10/2020 Last Documented On 4 3:04PM ; [facility] Not using drugs 12/10/2020 Last Documented On 4 3:04PM ; [facility] Alcohol use couple times a week; 021 Last Documented On 4 3:04PM ; [facility] Able to walk 11/04/2020 Last Documented On 4 3:04PM ; [facility] Non-smoker 07/26/2020 Last Documented On 4 3:04PM ; [facility] Currently APOLONIA (1965) ~NEFTALI 1 968 ~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 04/05/2019 Last Documented On 4 3:04PM ; [facility] No tobacco use 04/05/2019 Last Documented On 4 3:04PM ; [facility] Smoking status : Never smoker 10/25/2018 Last Documented On 4 3:04PM ; [facility] Procedures and Surgical History Includes: Procedures from this encounter Procedures Code Diagnosis Performing Provider Service Location Service Date INJECTION(S); SINGLE TENDON SHEATH, LIGAMENT, APONEUROSIS (RIGHT HAND, THIRD DIGIT) Trigger finger, right middle finger MERCEDES Archer [facility] 01/27/2024 Last Documented On 4 3:17PM ; [facility] FEE (Signi/Sep Eval & Man) G0463 Trigger finger, right middle finger MERCEDES Archer [facility] 01/27/2024 Last Documented On 4 3:17PM ; [facility] INJECTION(S); SINGLE TENDON SHEATH, LIGAMENT, APONEUROSIS (RIGHT HAND, THIRD DIGIT) [id number] Trigger finger, right middle finger MERCEDES Archer [facility] 01/27/2024 Last Documented On 4 3:17PM ; [facility] KENALOG INJECTION 10MG J3301 Trigger finger, right middle finger MERCEDES Archer [facility] 01/27/2024 Last Documented On 4 3:17PM ; [facility] use of tobacco assessment performed 1000F Last Documented On 4 3:24PM ; [facility] review of medications documented 1160F Last Documented On 4 3:24PM ; [facility] encouragement to exercise Last Documented On 4 3:24PM ; [facility] Informed consent obtained Ri sks and benefits of a corticosteroid injection/hyaluronic injection/aspiration are discussed in detail with the patient prior to administration. The patient was informed that an injection/aspiration consists of introducing a needle into the joint, muscle or under the skin and that the insertion of medication is for the purpose of treatment in their care. Preparation for the injection/aspiration includes cleaning the skin with an antiseptic. This may cause some skin irritation. There exists the possibility of certain complications from this injection/aspiration. These include pain, nerve damage, bleeding, swelling, allergic reaction to the medication or antiseptic, disability or even . The patient has been questioned regarding any allergies to the antiseptic or latex. The patient wishes to proceed with the injection/aspiration. The patient gave verbal consent to proceed with the corticosteroid/hyaluronic injection/aspiration in the presence of myself and my scribe Last Documented On 4 3:21PM ; [facility] Corticosteroid Injection: Ri sk and benefits are explained to the patient. Consent is obtained. Aseptic technique is utilized.~Patient received an injection in the A-1 tendon sheath of the right middle finger with a solution consisting of 0.5 cc of a 1% lidocaine, 0.5 cc of 0.5% bupivacaine and 0.5 cc 40 mg of Kenalog utilizing a 25 gauge -09/23 needle without difficulty. Patienttolerated the procedure well. Post procedure the patient was monitored and showed no signs of complications. Patient left in good condition J3301 Last Documented On 4 3:21PM ; [facility] Surgical History Last Updated History of appendectomy AGE 13 ~eyelid lift faustina 3-20 ~RT carpal tunnel 06/2020 Dr. Garcia. ~LT carpal tunnel 01/2020 Dr. Garcia. ~second right carpal tunnel surgery - Dr Rdz 10/06/2022 Last Documented On 4 3:04PM ; [facility] Prior surgery 12/25/2021 Last Documented On 4 3:04PM ; [facility] No Pacemaker 12/10/2020 Last Documented On 4 3:04PM ; [facility] Medical History Includes: Medical History addressed during this encounter Description Last Updated No fall 02/28/2022 Last Documented On 4 3:04PM ; [facility] No recent change in medical history 10/21 Last Documented On 4 3:04PM ; [facility] No Pain Pump 12/10/2020 Last Documented On 4 3:04PM ; [facility] No Spinal cord stimulator 12/10/2020 Last Documented On 4 3:04PM ; [facility] Please list all surgeries Carpal tunnel . 12/10/2020 Last Documented On 4 3:04PM ; [facility] No exposure to a contagious disease 07/22 Last Documented On 4 3:04PM ; [facility] No exposure to a viral disease 0 Last Documented On 4 3:04PM ; [facility] Not taking OTC medications 08/13/2020 Last Documented On 4 3:04PM ; [facility] History of arthritis ~Benign prostatic h ypertrophy 07/26/2020 Last Documented On 4 3:04PM ; [facility] History of hyperlipidemia 07/26/2020 Last Documented On 4 3:04PM ; [facility] Denies a fear of falling. 07/26/2020 Last Documented On 4 3:04PM ; [facility] Has had no fall in the last 12 months. 1 09/25/2019 Last Documented On 4 3:04PM ; [facility] Family History Includes: Family History addressed during this encounter Description Last Updated Paternal history of stroke/paralysis Last Documented On 4 3:04PM ; [facility] Family history of high cholesterol 12/03 Last Documented On 4 3:04PM ; [facility] Family history unchanged 10/15/2017 Last Documented On 4 3:04PM ; [facility] Review of Systems Includes: Review of Systems from this encounter Systemic: No fever and no chills. Hematologic: No easy bleeding and no tendency for easy bruising. Neurological: No sensory disturbances. Skin: No pruritus. No skin lesions and no rash. Mental Status Includes: Mental Status from this encounter Description Oriented to time, place, and person Functional Status Includes: Functional Status from this encounter No Functional Status Recorded Physical Exam Includes: Physical Exam from this encounter Allergies Includes: Active Allergies Substance Type Reaction Onset Date Resolved Date Statu s Welchol Allergy CONSTIPATION 04/05/2019 Active Last Documented On 4 2:57PM ; [facility] Encounters Encounter Provider Location Date Check-In Time Check-Out Time Diagnosis ORTHO ESTABLISHED PATIENT MERCEDES Archer [facility] 01/27/20 24 2:51PM 3:22PM Trigger Finger of Right Middle Finger Insurance Includes: Active Insurance Policies Plan Name Member ID Group # Subscriber Relationship Effect david Dates 1 - MEDICARE PART A CLAIMS/NGS [id number] ARTUR LAI Self 08/20/2011 - Unknown 2 - [employer] MEDICARE SUPPLEMENT [id number] ARTUR LAI Self Clinical Notes Includes: Clinical Notes from this encounter * Progress note Date Encounter Last Documented by 01/27/2024 ORTHO ESTABLISHED PATIENT Last d ocumented on 01/27/2024; 3:25 PM, MERCEDES Archer; [facility] Active Problems & Conditions - L57.0 - [...] - R20.2 - Tingling of the Hands - M65.331 - Trigger Finger of Right Middle Finger Chief Complaint The Chief Complaint is: C/O RT MIDDLE FINGER TRIGGERING, STATES IT IS STUCK. Reason For Visit Visit for: right hand pain. History of Present Illness ARTUR LAI is a 78 year old male. - Allergy list reviewed. Artur he is here today with chief complaint of his right middle finger being stuck in a flex position. He states this is been going on for about four or five months or maybe longer. He denies any numbness. He does have history of a revision carpal tower lease by Dr. Rdz. His primary care doctor sent him to therapy or belief that this was likely recurrent carpal tunnel symptoms. He does not have any numbness at this point. He denies any swelling but does describe pain along the anterior aspect of the third metacarpal head. He has to manually extend the finger to get to go straight. Denies any trauma. Current Medication - [facility] Melatonin 5 MG Oral Capsule 0 days, 0 refills - EQ Aspirin Adult Low Dose 81 MG Oral Tablet Delayed Release 30 days, 0 refills - Rosuvastatin Calcium 10 MG Oral Tablet TAKE 1 TABLET BY MOUTH AT BEDTIME, 90 days, 3 refills - Tadalafil 5 MG Oral Tablet One tablet daily or can take 2-4 tablets (10-20mg) every 72 hours prn sexual activity, 90 days, 0 refills - Tamsulosin HCl 0.4MG Oral Capsule 0.4 MG One tablet daily 0 days, 0 refills Past Medical/Surgical History Reported: No recent change in medical history and Please list all surgeries: Carpal tunnel . . Medical: No Spinal cord stimulator and no Pain Pump. Surgical / Procedural: Prior surgery. No Pacemaker. Medications: Not taking OTC medications. Exposure: No exposure to a contagious disease and not to a viral disease. Physical Trauma: No fall, Has had no fall in the last 12 months., and Denies a fear of falling. Diagnoses: Hyperlipidemia. Arthritis Benign prostatic hypertrophy Surgical: - Appendectomy AGE 13 eyelid lift faustina 3-20 RT carpal tunnel 06/2020 Dr. Garcia. LT carpal tunnel 01/2020 Dr. Garcia. second right carpal tunnel surgery - Dr Rdz Social History Difficulty walking. Tobacco use: No tobacco use. Former smoker, current nonsmoker, and non-smoker. Smoking status: Never smoker. Alcohol: No consumption of alcohol. Consuming 5 or more drinks per day None and alcohol use couple times a week; Not recovering alcoholic. Drug Use: Not using drugs and not recovering from substance abuse. Number of times used recreational drug/ prescription drug for nonmedical reason. None. 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 Functional: Able to walk. [PHQ-2] Patient Health Questionnaire 2 item total score: 2 (Scale: 0-6). Allergies - Welchol Reaction: CONSTIPATION Family History Family history unchanged High cholesterol Paternal: Stroke/paralysis Review Of Systems Systemic: No fever and no chills. Hematologic: No easy bleeding and no tendency for easy bruising. Neurological: No sensory disturbances. Skin: No pruritus. No skin lesions and no rash. Physical Findings - Vitals taken 01/27/2024 03:06 pm BP-Sitting 146/82 mmHg Height 73 in General Appearance: - Well developed. - In no acute distress. Neurological: - Oriented to time, place, and person. Skin: - Skin: - No skin lesions. - No purpura was seen. On exam, I can passably fully extend the right long finger. With flexion, he has palpable clicking and that manually locks in a flexed position. This has to be manually reduced. There is tenderness with palpation of the anterior metacarpal head. No obvious deformity noted. Assessment - [M65.331 - Trigger finger, right middle finger] Trigger finger of the right middle finger Therapy - Encouragement to exercise. - Informed consent obtained Risks and benefits of a corticosteroid injection/hyaluronic injection/aspiration are discussed in detail with the patient prior to administration. The patient was informed that an injection/aspiration consists of introducing a needle into the joint, muscle or under the skin and that the insertion of medication is for the purpose of treatment in their care. Preparation for the injection/aspiration includes cleaning the skin with an antiseptic. This may cause some skin irritation. There exists the possibility of certain complications from this injection/aspiration. These include pain, nerve damage, bleeding, swelling, allergic reaction to the medication or antiseptic, disability or even . The patient has been questioned regarding any allergies to the antiseptic or latex. The patient wishes to proceed with the injection/aspiration. The patient gave verbal consent to proceed with the corticosteroid/hyaluronic injection/aspiration in the presence of myself and my scribe. Plan We discussed conservative treatment such as trigger finger injection versus surgical trigger finger release. He wanted to move forward with trigger finger injection. This was provided for him today in the right long finger. He tolerated that injection without difficulty. He would need to wait three months before repeat injection. He can follow up with me on an as-needed basis. Practice Management Use of tobacco assessment performed Review of medications documented. Health Reminders - Assess Tobacco Use satisfied 01/27/2024. User Defined 1 Corticosteroid Injection: Risk and benefits are explained to the patient. Consent is obtained. Aseptic technique is utilized. Patient received an injection in the A-1 tendon sheath of the right middle finger with a solution consisting of 0.5 cc of a 1% lidocaine, 0.5 cc of 0.5% bupivacaine and 0.5 cc 40 mg of Kenalog utilizing a 25 gauge -09/23 needle without difficulty. Patienttolerated the procedure well. Post procedure the patient was monitored and showed no signs of complications. Patient left in good condition.
--- OUTSIDE RECORDS SUMMARY | 2024-11-03 08:16 | XMS_ITS | Clinical Summary ---
Author Organization [facility] [employer] [facility] Address [address] [place] [address] Care Team Providers Care Efficiency Analyst Name Role Phone Anh Jeong MD Primary Care Provider + Source Comments [facility],non-owned Affiliates and Associated Physician Practices is amultiple site organization consisting of ambulatory clinics and hospital sitesin [place], [place], [place] and [place]. This disclosure is being madepursuant to the Care Everywhere program and may not contain all information available regarding this patient. Last updated 18.[facility] Medications * Be aware that medications may [...] 03/25/2017 2:18 PM CDT Plan of Treatment Health Maintenance Due Date Last Done Comments MEDICARE AWV 12 MONTHS 1945 HEPATITIS C SCREENING 09/12/1963 DTAP/TDAP/TD VACCINES (1 - Tdap) 1965 PNEUMOCOCCAL VACCINE 50+ (1 of 1 - PCV) 1996 ZOSTER VACCINE (1 of 2) 1996 Respiratory Syncytial Virus (RSV) Vaccine Pt: or over 60 yrs (1 - 1-dose 75+ series) 2021 COVID-19 VACCINE (1 - 2023-2 5 season) 2024 INFLUENZA VACCINE (#1) 2024 DEPRESSION SCREENING 09/20/2024 HEPATITIS B VACCINE Aged Out No longe r eligible based on patient's age to complete this topic HIB VACCINE Aged Out No longer eligi ble based on patient's age to complete this topic HPV VACCINE Aged Out No longer eligi ble based on patient's age to complete this topic MENINGOCOCCAL (Group B) VACCINE Aged Out No longer eligible based on patient's age to complete this topic MENINGOCOCCAL VACCINE Aged Out No jose marina eligible based on patient's age to complete this topic Care Teams Efficiency Analyst Relationship Specialty Start Date End Date Anh Jeong MD [address] [place] [phone] [facility] - General 03/26/17
--- OUTSIDE RECORDS SUMMARY | 2024-11-03 08:16 | XMS_ITS | Patient Health Summary ---
Author Organization [facility] [employer] Address [address] [place] [address] Care Team Providers Care Button Attaching Machine Operator Name Role Phone Anh Jeogn MD Primary Care Provider + Note from [facility],non-owned Affiliates and Associated Physician Practices is amultiple site organization consisting of ambulatory clinics and hospital sitesin [place], [place], [place] and [place]. This disclosure is being madepursuant to the Care Everywhere program and may not contain all information available regarding this patient. Last updated 18.[facility] Medications * Be aware that medications may not be up to date on this document. Alwaysverify current medications with the patient. * colesevelam (WELCHOL) 625 MG tablet(Started 03/25/2017) Take 1,875 mg by mouth. * tamsulosin (FLOMAX) 0.4 MG capsule(Started 05/01/2016) Take 0.4 mg by mouth. Social History Tobacco Use Types Packs/Day Years [...] Mass Index 27.12 03/25/2017 2:18 PM CDT Procedures * DERMATOPATHOLOGY(Performed 02/15/2024) * DERMATOPATHOLOGY(Performed 10/31/2021) Results * DERMATOPATHOLOGY (02/15/2024 3:33 AM CDT) Only the most recent of2 resultswithin the time period is included. Case Report Dermatopathology Report Case: [id number] Authorizing Provider: Laci Foster Jr., MD Collected: 02/15/2024 03:33 AM Ordering Location: [facility] - Received: 02/16/2024 02:21 PM DermPath Lab Pathologist: Citlalli Crandall MD Specimen: Skin, right posterior shoulder 3:39 PM CDT DERMATOPATHOLOGY LABORATORY Final Diagnosis Specimen A. SKIN, right posterior shoulder: HYPERPLASTIC (HYPERTROPHIC) ACTINIC KERATOSIS (L57.0) 3:39 PM CDT DERMATOPATHOLOGY LABORATORY Clinical History Squamous Cell Carcinoma vs. Actinic Keratosis vs. Irritated Seborrheic Keratosis 3:39 PM CDT DERMATOPATHOLOGY LABORATORY Gross Description [...] characteristic determined by the Dermatopathology Laboratory at [facility], directed by Dr. Bianca Crandall. These tests need not be, and therefore are not, approved by the [place] Food and Drug Administration. The tests are used for clinical purposes. Billing Codes Specimen Charges Stain Charges 44170 1 4 3:39 PM CDT DERMATOPATHOLOGY LABORATORY Embedded Images 4 3:39 PM CDT DERMATOPATHOLOGY LABORATORY Pathology/Cytolo gy TISSUE SPECIMEN FROM SKIN / Unknown 02/15/2024 3:33 AM CDT 02/16/2024 2:21 PM CDT Laci Foster Jr., MD LAB - PATHOLOGY /CYTOLOGY ORDERABLES DERMATOPATHOLOGY LABORATORY [facility] - Department of Dermatology [facility] Medicine [address] [place] [address], [address] [phone] Care Teams Button Attaching Machine Operator Relationship Specialty Start Date End Date Martha-Anh Raphael MD [address] [place] [phone] PCP - General 03/26/17
--- OUTSIDE RECORDS SUMMARY | 2024-11-03 08:16 | XMS_ITS | Encounter Summary ---
Author Organization [facility] Address [facility] [facility] [place] [address] Care Team Providers Care Statistical Financial Analyst Name Role Phone Anh Jeong MD Primary Care Provider + Encounter Details Date Type Department Care Team (Late st Contact Info) Description 11/03/2021 Lab Requisition [facility] [address] 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 SKIN, left ventral proximal forearm: SQUAMOUS CELL CARCINOMA IN-SITU, PAGETOID TYPE (D04.62) 2 5:36 PM [facility] DERMATOPATHOLOGY LABORATORY Clinical History Squamous Cell Carcinoma vs. Basal Cell Carcinoma vs. Actinic Keratosis vs. Irritated Seborrheic Keratosis. 2 5:36 PM [facility] DERMATOPATHOLOGY [facility]ORATORY Gross Description Specimen A: Received is one formalin filled container labeled with the patient's name and designated left ventral proximal forearm. The specimen consists of a shave biopsy measuring [id number]. Jar 0. 2 5:36 PM [facility] DERMATOPATHOLOGY LABORATORY Microscopic Description Specimen A. SKIN, left ventral proximal forearm: Sections show nests of cells with pale cytoplasm and thin strands of relatively normal keratinocytes intervening. There is overlying parakeratosis. 2 5:36 PM [facility] DERMATOPATHOLOGY LABORATORY Disclaimer An external and internal positive and negative controls are appropriate for the histochemical, immunohistochemical and immunofluorescence stain(s) in this case (if any), except where stated explicitly. The performance characteristics of the stain(s) cited in this report were developed and its performance characteristic determined by the Dermatopathology Laboratory at [facility], directed by Dr. Bianca Crandall. These tests need not be, and therefore are not, approved by the [place] Food and Drug Administration. The tests are used for clinical purposes. Billing Codes Specimen Charges Stain Charges 96123 1 2 5:36 PM [facility] DERMATOPATHOLOGY [facility]ORATORY Embedded Images 2 5:36 PM [facility] DERMATOPATHOLOGY [facility]ORY Pathology/Cytolog y TISSUE SPECIMEN FROM SKIN / Unknown 10/31/2021 11/03/2021 10:35 AM [facility] Laci Foster Jr., MD LAB - PATHOLOGY /CYTOLOGY ORDERABLES DERMATOPATHOLOGY LABORATORY [facility] - Department of Dermatology [address], [address] [phone] documented in this encounter Visit Diagnoses Not on filedocumented in this encounter Care Teams Statistical Financial Analyst Relationship Specialty Start Date End Date Anh Jeong MD [address] [place], [place] [phone] PCP - General 03/26/17 documented as of this encounter
--- OUTSIDE RECORDS SUMMARY | 2024-11-03 08:16 | XMS_ITS | Clinical Summary ---
Author Organization [facility] [address] [facility] Address [address] [place] [address] Care Team Providers Care Residential Building Inspector Name Role Phone Elving-DialAnh MD Primary Care Provider Allergies No known active allergies Medications tamsulosin (FLOMAX) 0.4 mg extended release capsule daily 05/01/2016 Active rosuvastatin (CRESTOR) 20 mg tabletIndication s:Atherosclerosi s of [place] coronary artery of [place] heart without angina pectoris,Elevate d coronary artery calcium score,Hyperlipid emia LDL goal <70 Take 1 tablet (20 mg total) by mouth daily 90 tablet 3 06/08/2023 Active aspirin 81 mg enteric coated tabletIndication s:Atherosclerosi s of [place] coronary artery of [place] heart without angina pectoris,Elevate d coronary artery calcium score Take 1 tablet (81 mg total) by mouth daily 30 tablet 11 06/08/2023 Active Active Problems Problem Noted Date Diagnosed Date RBBB 03/31/2024 Erectile dysfunction 09/23/2023 Elevated coronary artery calcium score Atherosclerosis of [place] co ronary artery of [place] heart without angina pectoris 06/08/2023 Family history [...] keratosis 12/30/2011 Hyperlipidemia LDL goal <70 01/16/2009 Surgical History Surgery Date Site/Laterality Comments APPENDECTOMY VASECTOMY Medical History Medical History Date Comments GERD (gastroesophageal reflux disease) Arthritis Family History Medical History Relation Name Comments Heart attack Brother 1 Bill Nick Heart disease Brother 2 Jus Nick Stroke Father Rito Nick Arthritis Mother Jazmin Nick Cancer Sister 1 Karime Michel Diabetes Sister 2 Cassi Riojas Relation Name Status Comments Brother 1 Bill Nick Brother 2 Jus Nick Father Rito Nick Mother Jazmin Nick Sister 1 Karime Michel Sister 2 Cassi Riojas Social History Tobacco Use Types Packs/Day Years [...] on file Legal 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 Gender Identity Male 02/15/2021 10:13 AM CDT Sexual Orientation Straight 02/15/2021 10 :14 AM CDT Obstetrics History Last Filed Vital Signs Vital Sign Reading [...] 03/31/2024 9:22 AM CDT Plan of Treatment Health Maintenance Due Date Last Done Comments Depression Screening 1945 Fall Risk Assessment 1945 Hepatitis C Screening 1945 Hepatitis B Screening 1964 Zoster Vaccine (1 of 2) 1996 Pneumococcal vaccine 65+ (1 of 1 - PCV) 2011 Well Visit 65+ 2011 Influenza Vaccine (#1) 2024 DTaP/Tdap/Td Vaccine (2 - Td or Tdap) 05/09/2029 Insurance MEDICARE COMMERCIAL GENERIC MEDICARE COMMERCIAL GENERIC MEDICARE COMMERCIAL GENERIC Care Teams Residential Building Inspector Relationship Specialty Start Date End Date Anh Jeong MD [address] [place] [phone] PCP - General Family Medicine 01/29/21
--- OUTSIDE RECORDS SUMMARY | 2024-11-03 08:17 | XMS_ITS | Clinical Summary ---
Author Organization [facility] Address [address] [place] [address] Phone Care Team Providers Care Education Reviewer Name Role Phone HIRO HAINES MD Primary Care Provider Reason for Visit and Chief Complaint Artur is here today for what he believed was something related to his previous carpal tunnel revision. This surgery was on 01/28/22. However, he is actually here with a totally different new problemof a right third trigger finger. He does state that the numbness and tingling he was having prior to his last surgery has pretty well resolved. His problem is now his third finger. He states he wakesup in the mornings and this finger is locked down in position. He will have to use his opposite hand to force this finger back into position, visit for: New Complaint, visit for: right hand pain Problems Includes: Problems addressed during this encounter and other active Problems Current Visit Onset Date Resolved Date Provider Conditio n Status Trigger Finger of Right Middle Finger 05/27/2023 JOSE RDZ DO Active Last Documented On 2:33PM ; [facility] Past Visits Onset Date Resolved Date Provider Condition Status Tenosynovitis De Quervain's 04/30/2022 MERCEDES Archer Active Last Documented On 04/30/2022 9:27AM ; [facility] Note: left Carpal Tunnel Syndrome Right 12/25/2021 MERCEDES Archer Active Last Documented On 02/09/2022 9:53AM ; [facility] Note: right carpal tunnel revision on 08/[address] 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 TONO ONEIL MD Active Last Documented On 1 3:46PM ; [facility] Tingling of the Hands 12/06/2019 HIRO DIAZ MD Active Last Documented On 09/16/2021 1:52PM ; [facility] Note: Unchanged Sciatica 09/19/2019 OLGA LIDIA RILEY PA-C Act david Last Documented On 09/19/2019 3:30PM ; [facility] Note: --has done bee venom therapy which has helped Actinic Keratosis 12/30/2011 HIRO HAINES MD Active Last Documented On 2 3:40PM ; [facility] Benign Prostatic Hypertrophy 12/30/2011 HIRO HAINES MD Active Last Documented On 2 11:16PM ; [facility] Hyperlipidemia 01/16/2009 HIRO HAINES MD Active Last Documented On 0 2:41PM ; [facility] Plan of Treatment I discussed with Artur that his middle finger is actually a trigger finger and not related to his previoius carpal tunnel issues. The way we treat this is to start with a cortical steroid injection into the A-1 cori tendon sheath. 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 I did inform him that I do not treat this. For now, we will proceed with the cortical steroid injection for his trigger finger. As tight as his finger has been for this length of time, it may take more than one injection to get some relief. He may even come to the point where he needs surgical intervention. - Last Documented On 05/27/2023 2:35PM ; [facility] Instructions to patient No reduced physical activity -release to full activities Last Documented On 3 2:30PM ; [facility] Intervention and counseling on cessation of tobacco use Last Documented On 3 1:54PM ; [facility] Education and Decision Aids were provided during visit for: Patient education about orth opedic activities Last Documented On 3 2:30PM ; [facility] Assessments Includes: Assessments from this encounter Findings - [M65.30 - Trigger finger, unspecified finger] Trigger finger (acquired) - Last Documented On 05/27/2023 2:35PM ; [facility] - [M65.331 - Trigger finger, right middle finger] Trigger finger of the right middle finger - Last Documented On 05/27/2023 2:35PM ; [facility] Instructions Includes: Instructions from this encounter Instructions to patient No reduced physical activity -release to full activities Last Documented On 3 2:30PM ; [facility] Intervention and counseling on cessation of tobacco use Last Documented On 3 1:54PM ; [facility] Education and Decision Aids were provided during visit for: Patient education about orth opedic activities Last Documented On 3 2:30PM ; [facility] Medical Equipment - Implanted Devices Includes: [...] 4 9:30AM By HIRO HAINES MD ; [facility] EQ Aspirin Adult Low Dose 81 MG Oral Tablet Delayed Release 07/14/2023 Provider: THIEN DU MD Diagnosis: Last Documented On 10/05/2023 8:14AM By Melany HENRIQUEZ ; [facility] Rosuvastatin Calcium 10 MG O ral Tablet 04/06/2023 Provider: HIRO Caro Diagnosis: Mixed hyperlipid emia TAKE 1 TABLET BY MOUTH AT BEDTIME Last Documented On 3 8:50AM By HIRO HAINES MD ; [facility] Melatonin 5 MG Oral Capsule 10/06/2022 Provider: Diagnosis: Last Documented On 10/06/2022 10:00AM By Melany HENRIQUEZ ; [facility] Tamsulosin HCl 0.4MG Oral Capsule 04/05/2019 Provide r: Diagnosis: Last Documented On 9 9:16AM By HIRO HAINES MD ; [facility] Medications Administered Includes: Administered Medications from this encounter No Administered Medications Recorded Results Includes: Results discussed during this encounter No Results Recorded For Specified Dates History of Present Illness Includes: History of Present Illness from this encounter CONOR LAI is a 77 year old male. - Allergy list reviewed - Medication list reviewed - Stiffness of the right middle finger joint(s) - Pain in the right palm - Gradual onset of wrist joint pain Social History Description Last Updated Former smoker 01/23/2022 Last Documented On 3 1:53PM ; [facility] Current nonsmoker 04/26/2021 Last Documented On 3 1:53PM ; [facility] [PHQ-2] Patient Health Questionnaire 2 i tem total score: 2 (Scale: 0-6) 12/10/2020 Last Documented On 3 1:53PM ; [facility] Difficulty walking 12/10/2020 Last Documented On 3 1:53PM ; [facility] No consumption of alcohol 12/10/2020 Last Documented On 3 1:53PM ; [facility] Not using drugs 12/10/2020 Last Documented On 3 1:53PM ; [facility] Alcohol use couple times a week; 021 Last Documented On 3 1:53PM ; [facility] Able to walk 11/04/2020 Last Documented On 3 1:53PM ; [facility] Non-smoker 07/26/2020 Last Documented On 3 1:53PM ; [facility] Currently APOLONIA (1964) ~NEFTALI 1 968 ~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 04/05/2019 Last Documented On 3 1:53PM ; [facility] No tobacco use 04/05/2019 Last Documented On 3 1:53PM ; [facility] Smoking status : Never smoker 10/25/2018 Last Documented On 3 1:53PM ; [facility] Procedures and Surgical History Includes: Procedures from this encounter Procedures Code Diagnosis Performing Provider Service Location Service Date administered intrasynovial sheath corticosteroid injection Last Documented On 3 2:30PM ; [facility] Discussed benefits, risks and alternativ es to treatment Last Documented On 3 2:30PM ; [facility] intervention and counseling on cessation of toba accountant budget use 4000F Last Documented On 3 1:54PM ; [facility] use of tobacco assessment performed 1000F Last Documented On 3 1:54PM ; [facility] patient screened for future fall risk: documentation of any fall with injury in past year 1100F Last Documented On 3 1:54PM ; [facility] Informed consent obtained Ri sks and [...] myself and my scribe Last Documented On 3 2:33PM ; [facility] Corticosteroid Injection: Ri sk and benefits are explained to the patient. Consent is obtained. Aseptic technique is utilized.~Patient received an injection in the A-1 tendon sheath of the right middle finger with a solution consisting of 0.5 cc of a 1% lidocaine, 0.5 cc of 0.5% bupivacaine and 0.5 cc 40 mg of Kenalog utilizing a 27 gauge 1-/4 needle without difficulty. Patienttolerated the procedure well. Post procedure the patient was monitored and showed no signs of complications. Patient left in good condition [id number] Last Documented On 3 2:33PM ; [facility] Surgical History Last Updated History of appendectomy AGE 13 ~eyelid lift faustina 3-20 ~RT carpal tunnel 06/2020 Dr. Garcia. ~LT carpal tunnel 01/2020 Dr. Garcia. ~second right carpal tunnel surgery 5-22 Dr Rdz 10/06/2022 Last Documented On 3 1:53PM ; [facility] Prior surgery 12/25/2021 Last Documented On 3 1:53PM ; [facility] No Pacemaker 12/10/2020 Last Documented On 3 1:53PM ; [facility] Medical History Includes: Medical History addressed during this encounter Description Last Updated No fall 02/28/2022 Last Documented On 3 1:53PM ; [facility] No recent change in medical history 10/21 Last Documented On 3 1:53PM ; [facility] No Pain Pump 12/10/2020 Last Documented On 3 1:53PM ; [facility] No Spinal cord stimulator 12/10/2020 Last Documented On 3 1:53PM ; [facility] Please list all surgeries Carpal tunnel . 12/10/2020 Last Documented On 3 1:53PM ; [facility] No exposure to a contagious disease 07/22 Last Documented On 3 1:53PM ; [facility] No exposure to a viral disease 0 Last Documented On 3 1:53PM ; [facility] Not taking OTC medications 08/13/2020 Last Documented On 3 1:53PM ; [facility] History of arthritis ~Benign prostatic h ypertrophy 07/26/2020 Last Documented On 3 1:53PM ; [facility] History of hyperlipidemia 07/26/2020 Last Documented On 3 1:53PM ; [facility] Denies a fear of falling. 07/26/2020 Last Documented On 3 1:53PM ; [facility] Has had no fall in the last 12 months. 1 09/25/2019 Last Documented On 3 1:53PM ; [facility] Family History Includes: Family History addressed during this encounter Description Last Updated Paternal history of stroke/paralysis Last Documented On 3 1:53PM ; [facility] Family history of high cholesterol 12/03 Last Documented On 3 1:53PM ; [facility] Family history unchanged 10/15/2017 Last Documented On 3 1:53PM ; [facility] Review of Systems Includes: Review of Systems from this encounter Systemic: No recent weight change. Head: No headache. Endocrine: No excessive sweating. Neurological: No ataxia. Psychological: No fear of falling. Skin: No pruritus. Past Medical: No fall in the past [...] Active Last Documented On 4 2:57PM ; [facility] Encounters Encounter Provider Location Date Check-In Time Check-Out Time Diagnosis FOLLOW UP JOSE RDZ DO [facility] 05/27/20 23 1:04PM 2:35PM Tenosynovitis - Trigger Finger (Acquired),Trigge r Finger of Right Middle Finger Insurance Includes: Active Insurance Policies Plan Name Member ID Group # Subscriber Relationship Effect david Dates 1 - MEDICARE PART A CLAIMS/NGS [id number] ARTUR Neves 08/20/2011 - Unknown 2 - [employer] MEDICARE SUPPLEMENT [id number] ARTUR Neves Clinical Notes Includes: Clinical Notes from this encounter * Progress note Date Encounter Last Documented by 05/27/2023 FOLLOW UP Last documented on 05/27/2023; 2:35 PM, Nicci HENRIQUEZ; [facility] Active Problems & Conditions - L57.0 [...] - Trigger Finger of Right Middle Finger Reason For Visit Visit for: right hand pain and visit for: New Complaint. Artur is here today for what he believed was something related to his previous carpal tunnel revision. This surgery was on 01/28/22. However, he is actually here with a totally different new problem of a right third trigger finger. He does state that the numbness and tingling he was having prior to his last surgery has pretty well resolved. His problem is now his third finger. He states he wakes up in the mornings and this finger is locked down in position. He will have to use his opposite hand to force this finger back into position. History of Present Illness ARTUR LAI is a 77 year old male. - Allergy list reviewed - Medication list reviewed - Stiffness of the right middle finger joint(s) - Pain in the right palm - Gradual onset of wrist joint pain Current Medication - [facility] Melatonin 5 MG Oral Capsule 0 days, 0 refills - Rosuvastatin Calcium 10 MG Oral Tablet TAKE 1 TABLET BY MOUTH AT BEDTIME, 90 days, 3 refills - Tamsulosin HCl 0.4MG Oral Capsule [...] Never smoker. Alcohol: No consumption of alcohol. Alcohol use couple times a week; Drug Use: Not using drugs. 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 Functional: Able to walk. [PHQ-2] Patient Health Questionnaire 2 item total score: 2 (Scale: 0-6). Allergies - Welchol Reaction: CONSTIPATION Family History Family history unchanged High cholesterol Paternal: Stroke/paralysis Review Of Systems Systemic: No recent weight change. Head: No headache. Endocrine: No excessive sweating. Neurological: No ataxia. Psychological: No fear of falling. Skin: No pruritus. Past Medical: No fall in the past 6 months. Physical Findings General Appearance: - Well developed. - In no acute distress. Eyes: General/bilateral: - Eyes: normal. Musculoskeletal System: Fingers: Fingers Of The Right Hand: - Hands showed a trigger middle finger. Neurological: - Oriented to time, place, and person. Motor (Strength): - No flexion weakness of the fingers of the right hand. Skin: - Normal. There is active triggering of the right 3rd finger at the A-1 cori with crepitus. There is also what appears to be a small tender palpable cord in the palm of the right hand. Assessment - [M65.30 - Trigger finger, unspecified finger] Trigger finger (acquired) - [M65.331 - Trigger finger, right middle finger] Trigger finger of the right middle finger Therapy - Intervention and counseling on cessation of tobacco use. - Administered intrasynovial sheath corticosteroid injection. - Informed consent obtained Risks and benefits [...] the presence of myself and my scribe. Discussed benefits, risks and alternatives to treatment. Counseling/Education - No reduced physical activity -release to full activities - Patient education about orthopedic activities Discussed - Discussion of orthopedic goals; - Discussion of orthopedic options: Plan I discussed with Artur that his middle finger is actually a trigger finger and not related to his previoius carpal tunnel issues. The way we treat this is to start with a cortical steroid injection into the A-1 cori tendon sheath. 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 I did inform him that I do not treat this. For now, we will proceed with the cortical steroid injection for his trigger finger. As tight as his finger has been for this length of time, it may take more than one injection to get some relief. He may even come to the point where he needs surgical intervention. Notes Majority of visit was spent in counseling regarding diagnosis & treatment options. Practice Management Use of tobacco assessment performed and patient screened for future fall risk documentation of any fall with injury in past year. Health Reminders - Assess Need for CT Lung Screen satisfied 05/27/2023. - Assess Screening for Fall Risk satisfied 05/27/2023. - Assess Tobacco Use satisfied 05/27/2023. User Defined 1 Corticosteroid Injection: Risk and benefits are explained to the patient. Consent is obtained. Aseptic technique is utilized. Patient received an injection in the A-1 tendon sheath of the right middle finger with a solution consisting of 0.5 cc of a 1% lidocaine, 0.5 cc of 0.5% bupivacaine and 0.5 cc 40 mg of Kenalog utilizing a 27 gauge needle without difficulty. Patienttolerated the procedure well. Post procedure the patient was monitored and showed no signs of complications. Patient left in good condition.
--- OUTSIDE RECORDS SUMMARY | 2024-11-03 08:17 | XMS_ITS | Clinical Summary ---
Author Organization [facility] Address [address] [place] [address] Phone Care Team Providers Care Open Die Inspector Name Role Phone HIRO HAINES MD Primary Care Provider [phone] Reason for Visit and Chief Complaint The Chief Complaint is: 6 MONTH CHECK UP, HIS RIGHT HAND IS BOTHERING HIM, HE HAD CARPAL TUNNEL SURGERY DONE IN THE PAST WHICH DID HELP SOME BUT IS WONDERING IF HE NEEDS IT DONE AGAIN, HAS SOME NUMBNESS IN HIS FEET HE THINKS COULD BE DUE TO ARTHRITIS IN HIS BACK Problems Includes: Problems addressed during this encounter and other active Problems Current Visit Onset Date Resolved Date Provider Conditio n Status Trigger Finger of Right Middle Finger 05/27/2023 JOSE RDZ DO Active Last Documented On 3 2:33PM ; [facility] Tingling of the Hands 12/06/2019 HIRO DIAZ MD Active Last Documented On 1 1:52PM ; [facility] Note: Unchanged Benign Prostatic Hypertrophy 12/30/2011 HIRO HAINES MD Active Last Documented On 2 11:16PM ; [facility] Hyperlipidemia 01/16/2009 HIRO HAINES MD Active Last Documented On 0 2:41PM ; [facility] Past Visits Onset Date Resolved Date Provider Condition Status Tenosynovitis De Quervain's 04/30/2022 MERCEDES Archer Active Last Documented On 04/30/2022 9:27AM ; [facility] Note: left Carpal Tunnel Syndrome Right 12/25/2021 MERCEDES Archer Active Last Documented On 02/09/2022 9:53AM ; [facility] Note: right carpal tunnel revision on 08/[address] 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 TONO ONEIL MD Active Last Documented On 1 3:46PM ; [facility] Sciatica 09/19/2019 OLGA LIDIA RILEY PA-C Act david Last Documented On 09/19/2019 3:30PM ; [facility] Note: --has done bee venom therapy which has helped Actinic Keratosis 12/30/2011 HIRO HAINES MD Active Last Documented On 2 3:40PM ; [facility] Plan of Treatment Ordered blood work. Take rosuvastatin 10 mg of, one tablet a day to replace the 20 mg. Starting a week before your bee therapy. Continue for a week after bee therapy, and then resume the 20mg. Try tadalafil 5 mg, take one tablet daily, or can take 2-4 tablets (10-20 mg), every 72 hours before sexual activity. Reviewed blood work with the patient, and answered all the questions. Ordered physical therapy for the further evaluation of right wrist pain. You will get a call to set up an appointment. Refills on medication are provided to the patient. We discussed lifestyle recommendations, including the importance of a healthy diet and exercising as tolerated. Maintain a healthy diet. Encouraged to walk in the form of exercise. Stay well hydrated. Have more water. Follow up as scheduled. IReta, scribing the following service on behalf of Dr. Martha Kamara on 10/05/2023. This note has been reviewed by the provider before submitting. - Last Documented On 10/05/2023 4:06PM ; [facility] Pending Tests Order Diagnosis Results Due Ordering P rovider Therapy - Physical Therapy Physical Therapy Pain in right wrist 10/05/23 HIRO NGUYEN MD Last Documented On 4 4:06PM ; [facility] Therapy - Occupational Therapy Occupational Therapy Pain in right wrist 10/05/23 HIRO HAINES MD Last Documented On 4 4:06PM ; [facility] Lab LIPID PANEL 04/02/24 HIRO MATTHEWS MD Last Documented On 4 8:04AM ; [facility] Lab CMP 04/02/24 HIRO DIAZ MD Last Documented On 4 8:04AM ; [facility] Education and Decision Aids were provided during visit for: Patient education about home safety plans for prevention of falls : Patient completed a Fall risk assesment and was provided fall risk education materials Last Documented On 4 8:09AM ; [facility] Assessments Includes: Assessments from this encounter Findings - [R20.2 - Paresthesia of skin] Tingling of the hands - Last Documented On 10/05/2023 4:06PM ; [facility] - [N40.0 - Benign prostatic hyperplasia without lower urinary tract symptoms] Benign prostatic hypertrophy - Last Documented On 10/05/2023 4:06PM ; [facility] - [E78.2 - Mixed hyperlipidemia] Hyperlipidemia - Last Documented On 10/05/2023 4:06PM ; [facility] - [M25.531 - Pain in right wrist] Compression arthralgia of the right ulna/radius/wrist - Last Documented On 10/05/2023 4:06PM ; [facility] - [M65.331 - Trigger finger, right middle finger] Trigger finger of the right middle finger - Last Documented On 10/05/2023 4:06PM ; [facility] Instructions Includes: Instructions from this encounter Education and Decision Aids were provided during visit for: Patient education about home safety plans for prevention of falls : Patient completed a Fall risk assesment and was provided fall risk education materials Last Documented On 4 8:09AM ; [facility] Medical Equipment - Implanted Devices Includes: Current Devices No Medical Equipment Recorded Medications Includes: Medications discussed during this encounter and other current Medications New / Renewed during this visit HIRO HAINES MD on 10/05/2023 Rosuvastatin Calcium 10 MG Oral Tablet Provider: HIRO Caro 30 day supply: 30 tablet, 0 refills Diagnosis: Mixed hyperlipidemia as directed one tablet a day to replace the 20mg starting a week before your bee therapy and continue for a week after bee therapy and then resume the 20mg tablet [facility]: [facility] [address] [place] [address], [id number] - Last Documented On 03/22/2024 6:20PM By Melany HENRIQUEZ ; [facility] Tadalafil 5 MG Oral Tablet Provider: HIRO Caro 90 day supply: 90 tablet, 0 refills Diagnosis: One tablet daily or can take 2-4 tablets (10-20mg) every 72 hours prn sexual activity Pharmacy: [facility] - [address] [place] [address], [id number] - Last Documented On 4 9:30AM By HIRO HAINES MD ; [facility] Current Medications (continue as prescribed) EQ Aspirin Adult Low Dose 81 MG Oral Tablet Delayed Release 07/14/2023 Provider: THIEN LOZANO MD Diagnosis: Last Documented On 10/05/2023 8:14AM By Melany HENRIQUEZ ; [facility] Rosuvastatin Calcium 10 MG O ral Tablet 04/06/2023 Provider: HIRO Caro Diagnosis: Mixed hyperlipid emia TAKE 1 TABLET BY MOUTH AT BEDTIME Last Documented On 3 8:50AM By HIRO HAINES MD ; [facility] Melatonin 5 MG Oral Capsule 10/06/2022 Provider: Diagnosis: Last Documented On 10/06/2022 10:00AM By Melany HENRIQUEZ ; [facility] Tamsulosin HCl 0.4MG Oral Capsule 04/05/2019 Provide r: Diagnosis: Last Documented On 9 9:16AM By HIRO HAINES MD ; [facility] Medications Administered Includes: Administered Medications from this encounter No Administered Medications Recorded Vital Signs Includes: Vital Signs from this encounter Vital Name 10/05/2023 08:21A Blood Pressure Sitting R 126/86 BP Cuff Size Regular Pulse Rate-Sitting (bpm) 66 Respiration Rate (breaths/min) 18 Temp-Oral (F) 97.8 Height (in) 73 Weight (lb) 206 Body Mass Index 27.2 Body Surface Area 2.2 Oxygen Saturation (%) 99 Last Documented: On 10/05/2023 8:24AM ; [facility] Results Includes: Results discussed during this encounter No Results Recorded For Specified Dates History of Present Illness Includes: History of Present Illness from this encounter HPI ARTUR ROMERO is a 78 year old male. Source of patient information was patient ? Allergy list reviewed ? Medication list reviewed - Feeling fine - No chest pain or discomfort - No dyspnea - and No cough - No abdominal pain Artur is a 78 y/o male who reports to the office today for a 6 month check up. He states his right hand has been bothering him for the past few months. He had a carpal tunnel revision in January of 2022 which did help his pain. He states he has been having some numbness to his feet for the past year. He believes its related to the arthritis in his back. He states he is still using bee venom therapy to help with arthritis pain in his knees. Patient states he is eating okay and sleeping okay. He denies chest pain or shortness of breath. - SHUKRI Branch Artur Romero is a pleasant 78-year-old male who presents to our clinic for a 6-month check-up. The patient reports that his right hand has been bothering him for the past few months. He had carpal tunnel surgery done in January 2022, which slightly helped, however, he is wondering if he needs it done again or not. He has noticed a slight improvement in his hand, however, still he is not able to hold silverwear all the time with his hand. The patient is also having mild numbness in his feet. He suspects it could be secondary to arthritis in his back. He states he is still using bee venom therapy to help with arthritis pain in his knee. He restricted his waking due to his back. He sees a architectural practice manager (Dr. Lozano). As per the patient, he checked his testosterone levels, and it was around 606. Of note, he has a history of benign prostatic hypertrophy and ED. He also tried Viagra in the past and a penile injection from a urologist. He does have morning erections but they are useless. His blood pressure is well-controlled in the clinic today at 126/86. He denies any chest pain, palpitations, or shortness of breath. He is eating well and sleeping well at night. His bowels are moving well. He has gained 2 lbs since his last visit which was in 03/2023, and he currently weighs 206 lbs. He has a history of hyperlipidemia for which he is taking rosuvastatin 10 mg as directed. Reviewed recent blood work with the patient dated 10/01/2023, and all questions are answered to the patient's satisfaction. He is up-to-date with the colonoscopy. His last colonoscopy was performed in 12/2020 and a repeat colonoscopy is recommended to be performed in 5 years. Social History Description Last Updated Consuming 5 or more drinks per day None 10/05/2023 Last Documented On 4 4:06PM ; [facility] Not recovering alcoholic 10/05/2023 Last Documented On 4 4:06PM ; [facility] Not recovering from substance abuse 09/20 Last Documented On 4 4:06PM ; [facility] Number of times used recreat ional drug/ prescription drug for nonmedical reason. 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 04/05/2019 Last Documented On 4 8:09AM ; [facility] Smoking Status Unknown Procedures and Surgical History Includes: Procedures from this encounter Procedures Code Diagnosis Performing Provider Service L ocation Service Date education and instructions Last Documented On 4 4:04PM ; [facility] explanation of plan : patien t/guardian states understanding of and agreement to treatment options and plan Last Documented On 4 4:04PM ; [facility] medication list reviewed Last Documented On 4 4:04PM ; [facility] use of tobacco assessment performed 1000F Last Documented On 4 8:09AM ; [facility] standardized depression screening: negative for symptoms [id number] Last Documented On 4 8:09AM ; [facility] screening for adult depressi on: impression and score not recorded contraindicated Last Documented On 4 8:09AM ; [facility] screening for adult depression: impressi on and score 0 Last Documented On 4 8:09AM ; [facility] Reviewed & agreed to staff entries. Last Documented On 4 4:04PM ; [facility] Clinical summary provided to patient Last Documented On 4 4:04PM ; [facility] reviewed laboratory-based chemistry Last Documented On 4 9:13AM ; [facility] Surgical History Last Updated History of appendectomy AGE 13 ~eyelid lift faustina 3-20 ~RT carpal tunnel 06/2020 Dr. Garcia. ~LT carpal tunnel 01/2020 Dr. Garcia. ~second right carpal tunnel surgery - Dr Rdz 10/06/2022 Last Documented On 4 8:09AM ; [facility] Prior surgery 12/25/2021 Last Documented On 4 8:09AM ; [facility] Medical History Includes: Medical History addressed during this encounter Description Last Updated No recent change in medical history 10/21 Last Documented On 4 8:09AM ; [facility] Please list all surgeries Carpal tunnel . 12/10/2020 Last Documented On 4 8:09AM ; [facility] History of arthritis ~Benign prostatic h ypertrophy 07/26/2020 Last Documented On 4 8:09AM ; [facility] History of hyperlipidemia 07/26/2020 Last Documented On 4 8:09AM ; [facility] Family History Includes: Family History addressed during this encounter Description Last Updated Paternal history of stroke/paralysis Last Documented On 4 8:09AM ; [facility] Family history of high cholesterol 12/03 Last Documented On 4 8:09AM ; [facility] Family history unchanged 10/15/2017 Last Documented On 4 8:09AM ; [facility] Review of Systems Includes: Review of Systems [...] Active Last Documented On 4 2:57PM ; [facility] Encounters Encounter Provider Location Date Check-In Time Check-Out Time Diagnosis CHECK UP HIRO HAINES MD [facility] 10/05/19 24 8:05AM 9:44AM Trigger Finger of Right Middle Finger,Rehana wisam Arthralgia - Ulna / Radius / Wrist Right,Hyperlip idemia,Benign Prostatic Hypertrophy,As sessment of Tingling of the Hands Insurance Includes: Active Insurance Policies Plan Name Member ID Group # Subscriber Relationship Effect david Dates 1 - MEDICARE PART A CLAIMS/NGS [id number] ARTUR Neves 08/20/2011 - Unknown 2 - [employer] MEDICARE SUPPLEMENT [id number] ARTUR Neves Clinical Notes Includes: Clinical Notes from this encounter * Progress note Date Encounter Last Documented by 10/05/2023 CHECK UP Last documented on 10/05/2023; 4:06 PM, HIRO HAINES MD; [facility] Active Problems & Conditions - [...] Finger Chief Complaint The Chief Complaint is: 6 MONTH CHECK UP, HIS RIGHT HAND IS BOTHERING HIM, HE HAD CARPAL TUNNEL SURGERY DONE IN THE PAST WHICH DID HELP SOME BUT IS WONDERING IF HE NEEDS IT DONE AGAIN, HAS SOME NUMBNESS IN HIS FEET HE THINKS COULD BE DUE TO ARTHRITIS IN HIS BACK. History of Present Illness ARTUR ROMERO is a 78 year old male. Source of patient information was patient - Allergy list reviewed - Medication list reviewed - Feeling fine - No chest pain or discomfort - No dyspnea - and No cough - No abdominal pain Artur is a 78 y/o male who reports to the office today for a 6 month check up. He states his right hand has been bothering him for the past few months. He had a carpal tunnel revision in January of 2022 which did help his pain. He states he has been having some numbness to his feet for the past year. He believes its related to the arthritis in his back. He states he is still using bee venom therapy to help with arthritis pain in his knees. Patient states he is eating okay and sleeping okay. He denies chest pain or shortness of breath. - Marion Hatfield, RAE-S Artur Romero is a pleasant 78-year-old male who presents to our clinic for a 6-month check-up. The patient reports that his right hand has been bothering him for the past few months. He had carpal tunnel surgery done in January 2022, which slightly helped, however, he is wondering if he needs it done again or not. He has noticed a slight improvement in his hand, however, still he is not able to hold silverwear all the time with his hand. The patient is also having mild numbness in his feet. He suspects it could be secondary to arthritis in his back. He states he is still using bee venom therapy to help with arthritis pain in his knee. He restricted his waking due to his back. He sees a architectural practice manager (Dr. Lozano). As per the patient, he checked his testosterone levels, and it was around 606. Of note, he has a history of benign prostatic hypertrophy and ED. He also tried Viagra in the past and a penile injection from a urologist. He does have morning erections but they are useless. His blood pressure is well-controlled in the clinic today at 126/86. He denies any chest pain, palpitations, or shortness of breath. He is eating well and sleeping well at night. His bowels are moving well. He has gained 2 lbs since his last visit which was in 03/2023, and he currently weighs 206 lbs. He has a history of hyperlipidemia for which he is taking rosuvastatin 10 mg as directed. Reviewed recent blood work with the patient dated 10/01/2023, and all questions are answered to the patient's satisfaction. He is up-to-date with the colonoscopy. His last colonoscopy was performed in 12/2020 and a repeat colonoscopy is recommended to be performed in 5 years. Current Medication - [facility] Melatonin 5 MG [...] Difficulty walking. Tobacco use: Current nonsmoker. Alcohol: Consuming 5 or more drinks per day None and alcohol use couple times a week; Not recovering alcoholic. Drug Use: Not recovering from substance abuse. Number of times used recreational drug/ prescription drug for nonmedical reason. None. 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 Functional: [PHQ-2] Patient Health Questionnaire 2 item [...] 6 months. Physical Findings - Vitals taken 10/05/2023 08:21 am BP-Sitting R 126/86 mmHg 100 - 120/60 - 80 BP Cuff Size Regular Pulse Rate-Sitting 66 bpm 50 - 100 Respiration Rate 18 per min 18 - 26 Temp-Oral 97.8 F 96 - 101 Height 73 in 64 - 74 Weight 206 lbs 121 - 205 Body Mass Index 27.2 kg/m2 Body Surface Area 2.2 m2 Oxygen Saturation 99 % 93 - 100 General Appearance: - [...] dry. Tests Laboratory-based Chemistry: Reviewed laboratory-based chemistry. Assessment - [R20.2 - Paresthesia of skin] Tingling of the hands - [N40.0 - Benign prostatic hyperplasia without lower urinary tract symptoms] Benign prostatic hypertrophy - [E78.2 - Mixed hyperlipidemia] Hyperlipidemia - [M25.531 - Pain in right wrist] Compression arthralgia of the right ulna/radius/wrist - [M65.331 - Trigger finger, right middle finger] Trigger finger of the right middle finger Therapy - Reviewed & agreed to staff entries. - Medication list reviewed. - Education and instructions. - Clinical summary provided to patient. - Explanation of plan: patient/guardian states understanding of and agreement to treatment options and plan. Plan StartCited - Mixed hyperlipidemia Lab: LIPID PANEL Lab: CMP Rosuvastatin Calcium 10 MG tablet as directed one tablet a day to replace the 20mg starting a week before your bee therapy and continue for a week after bee therapy and then resume the 20mg tablet, 30 days, 0 refills EndCited StartCited - Other *ELISSA please get testosterone level from dr lozano cardio Follow-up 6 months with labs before Tadalafil 5 MG tablet One tablet daily or can take 2-4 tablets (10-20mg) every 72 hours prn sexual activity, 90 days, 0 refills EndCited StartCited - Pain in right wrist Therapy/Physical Therapy: Physical Therapy Instructions: Ordered physical therapy for the further evaluation of right wrist pain. Therapy/Occupational Therapy: Occupational Therapy Instructions: Evaluate and Treat EndCited Ordered blood work. Take rosuvastatin 10 mg of, one tablet a day to replace the 20 mg. Starting a week before your bee therapy. Continue for a week after bee therapy, and then resume the 20mg. Try tadalafil 5 mg, take one tablet daily, or can take 2-4 tablets (10-20 mg), every 72 hours before sexual activity. Reviewed blood work with the patient, and answered all the questions. Ordered physical therapy for the further evaluation of right wrist pain. You will get a call to set up an appointment. Refills on medication are provided to the patient. We discussed lifestyle recommendations, including the importance of a healthy diet and exercising as tolerated. Maintain a healthy diet. Encouraged to walk in the form of exercise. Stay well hydrated. Have more water. Follow up as scheduled. Reta Chavez, scribing the following service on behalf of Dr. Martha Kamara on 10/05/2023. This note has been reviewed by the provider before submitting. Practice Management Use of tobacco assessment performed; Standardized depression screening: negative for symptoms Screening for adult depression: impression and score not recorded contraindicated Screening for adult depression: impression and score 0. Health Reminders - Assess BMI satisfied 10/05/2023. - Assess Tobacco Use satisfied 10/05/2023. - Depression Screening satisfied 10/05/2023. - Follow up plan for Depression Screening satisfied 10/05/2023. User Defined 25 Patient education about home safety plans for prevention of falls: Patient completed a Fall risk assesment and was provided fall risk education materials.
--- OUTSIDE RECORDS SUMMARY | 2024-11-03 08:17 | XMS_ITS ---
Author Organization [facility] Address [address] [place] [address] Phone Care Team Providers Care Information Technology Intern Name Role Phone HIRO HAINES MD Primary Care Provider [phone] Reason for Referral Date Encounter Description Provider Reason for Referral 01/01/14 PROBLEM VISIT HIRO HAINES MD Reque st Consultation By Specialist Problems Includes: Active, inactive, and resolved Problems All Visits Onset Date Resolved Date Provider Condition S tatus Trigger Finger of Right Middle Finger 05/27/2023 JOSE RDZ DO Active Last Documented On 3 2:33PM ; [facility] Tenosynovitis De Quervain's 04/30/2022 MERCEDES Archer Active Last Documented On 2 9:27AM ; [facility] Note: left Carpal Tunnel Syndrome Right 12/25/2021 MERCEDES Archer Active Last Documented On 2 9:53AM ; [facility] Note: right carpal tunnel revision on 08/[address] 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 TONO ONEIL MD Active Last Documented On 1 3:46PM ; [facility] Tingling of the Hands 12/06/2019 HIRO DIAZ MD Active Last Documented On 09/16/2021 1:52PM ; [facility] Note: Unchanged Sciatica 09/19/2019 OLGA LIDIA RILEY PA-C Act david Last Documented On 09/19/2019 3:30PM ; [facility] Note: --has done bee venom therapy which has helped Actinic Keratosis 12/30/2011 HIRO HAINES MD Active Last Documented On 2 3:40PM ; [facility] Benign Prostatic Hypertrophy 12/30/2011 HIRO HAINES MD Active Last Documented On 2 11:16PM ; [facility] Hyperlipidemia 01/16/2009 HIRO HAINES MD Active Last Documented On 0 2:41PM ; [facility] Plan of Treatment Findings Encounter Date We discussed conservative tr eatment such as trigger finger injection versus surgical trigger finger release. He wanted to move forward with trigger finger injection. This was provided for him today in the right long finger. He tolerated that injection without difficulty. He would need to wait three months before repeat injection. He can follow up with me on an as-needed basis ORTHO ESTABLISHED PATIENT with MERCEDES Archer 01/27/2024 Last Documented On 4 3:25PM ; [facility] I discussed with Artur nolasco his middle finger is actually a trigger [...] to the point where he needs surgical intervention FOLLOW UP with JOSE RDZ DO 05/27/2023 Last Documented On 3 2:35PM ; [facility] He will continue with activi april swift in regards to his right hand. He can follow up with us on that as needed. We recommended a thumbs practice splint for the left wrist today but he declined that. We also suggested topical Voltaren gel application which he would like to try. Follow-up as needed FOLLOW UP with MERCEDES Archer 04/30/2022 Last Documented On 2 9:32AM ; [facility] He is around 6 weeks out fro m a right wrist carpal tunnel release. He is doing well. We provided him with some home exercises to do to increase his strength and sensation in the right hand. We discussed scar tissue massage along the volar scar. I will recheck him in about 6 more weeks for a repeat exam FOLLOW UP with MERCEDES Archer 03/09/2022 Last Documented On 2 9:11AM ; [facility] He has an improving situatio n with the right wrist. He was instructed on wound care. I want him to avoid pulling and pushing with the right hand with any significant resistance for the next 1-2 weeks until his incision completely heals. See me back in 4 weeks for a recheck and he will be around 6 weeks out from his right carpal tunnel revision at that time. We discussed scar tissue massage to improve this area of scar tissue. Will follow up in 4 weeks for a recheck FOLLOW UP with MERCEDES Archer 02/09/2022 Last Documented On 2 9:59AM ; [facility] He will be having upcoming r ight carpal tunnel revision surgery by Dr. Rdz. We updated his H&P today FOLLOW UP with MERCEDES Archer 01/23/2022 Last Documented On 2 1:56PM ; [facility] I had a long discussion toda y with Artur explaining that a repeat surgical intervention may not give him the total relief he is looking for, as this would be a revision. I did go over with him that as the thenar waisting never improved and contniued to progress, I am wondering if his original release was not enough to give him a full release. I also explained to him that doing a revision is a little different than doing an original surgical procedure as the road map we normally use has been changed and altered from the original surgery. We also talked about the healing time required. He will need to be very careful for the first month and let his incision heal. He is asking about using a chainsaw. This will probably not be possible for at least a month or two following surgery. Artur does inform me that he is on a bee venom therapy for his arthritis. This consist of actually being stung so many times a month by bees to help with his arthritis. 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 He is questioning whether surgery will interfer with this. I did explain to him that following surgery he would only be given some minmimal pain medication if needed. I would not want him getting stung anywhere near the surgical site if he does this during the healing period of the revision surgery. Artur is right-hand dominant and this condition is giving him extreme difficulty doing any of his activities. He does understand that there are no guarantees with a revision. The most common benefit is pain relief but the numbness and tingling as well as muscle waisting may not be improved 100%. After a long discussion, he has decided to proceed forward with a right carpal tunnel release revision ORTHO ESTABLISHED PATIENT with JOSE RDZ DO 12/25/2021 Last Documented On 2 9:49AM ; [facility] Ordered patient will call fo appointment as needed PROBLEM VISIT with PÉREZ BERMUDEZ [facility] 11/06/2021 Last Documented On 2 12:41PM ; [facility] Ordered return to the clinic if condition worsens or new symptoms arise PROBLEM VISIT with PÉREZ BERMUDEZ [facility]- 11/06/2021 Last Documented On 2 12:41PM ; [facility] Ordered Clinical summary pro vided to patient . Plan discussed and patient/parent/caregiver states understanding PROBLEM VISIT with OLGA LIDIA RILEY PA-C 08/21/2021 Last Documented On 1 5:07PM ; [facility] Ordered follow-up visit as n eeded with an office visit.. Can try Rx Eucrisa. Also can try OTC goldbond eczema relief, Eucerin cream in a jar. Also Michelle samuels hands hand ointment can help as well. Wash hands in luke warm water, pat to dry. Call sooner if needed PROBLEM VISIT with OLGA LIDIA RILEY PA-C 08/21/2021 Last Documented On 1 5:07PM ; [facility] The options include close observation WA LK IN PATIENT - ESTABLISHED PT with CATIE MCBRIDE-C 04/26/2021 Last Documented On 1 11:23AM ; [facility] Pt to use prescription as or dered. Purpose of and use of medication discussed. COVID SICK VISIT- ESTABLISHED PATIENT with CARLOS RUIZ [facility]- 03/21/2021 Last Documented On 1 9:05AM ; [facility] Ordered Clinical summary pro vided to patient . Plan discussed and patient/parent/caregiver states understanding PROBLEM VISIT with OLGA LIDIA RILEY PA-C 11/29/2020 Last Documented On 1 12:03PM ; [facility] Ordered follow-up visit as n eeded with an office visit. Handout given on ear fungus. Use hairspring studder after showers to keep ear as dry as possible. Avoid cotton swabs! Can use mixture of equal parts of vinegar and rubbing alcohol twice a day to help decrease fungal growth. Referral to ENT sent. Can get COVID vaccine at [facility] in but [facility] have [facility] for an appt. If not can call here and will get you connected with [employer]. Use flonase nasal spray daily for inner ear fluid. Call sooner if needed. Total time spent >30min discussing his ears and covid vaccine PROBLEM VISIT with OLGA LIDIA RILEY PA-C 11/29/2020 Last Documented On 1 12:03PM ; [facility] Clinical summary provided to patient PRO BLEM VISIT with MARY ANN VENEGAS [facility] 11/18/2020 Last Documented On 1 4:27PM ; [facility] Plan of care reviewed and agreed to PROB AMERICA VISIT with MARY ANN VENEGAS [facility] 11/18/2020 Last Documented On 1 4:27PM ; [facility] Ordered follow-up visit as n eeded with an office visit. put a few drops of peroxide in your LT ear to and flush in the shower to help get the rest of debris out. OK to wear hearing aids as we got most of the wax out. Vasoline or OTC aquaphor advanced healing ointment to dry patches. Call sooner if needed PROBLEM VISIT with OLGA LIDIA RILEY PA-C 11/12/2020 Last Documented On 1 12:46PM ; [facility] Ordered Clinical summary pro vided to patient . Plan discussed and patient/parent/caregiver states understanding PROBLEM VISIT with OLGA LIDIA RILEY PA-C 10/18/2020 Last Documented On 1 3:25PM ; [facility] Ordered follow-up visit as n eeded with an office visit. Start and finish antibiotic. Hold off on the ear drops for now. OK to take aleve as needed and local heat to ear for pain. Call sooner if needed PROBLEM VISIT with OLGA LIDIA RILEY PA-C 10/18/2020 Last Documented On 1 3:25PM ; [facility] Go to the emergency room if condition worsens WALK-IN CLINIC SICK VISIT with MARY ANN MCBRIDE-BC 10/12/2020 Last Documented On 1 4:23PM ; [facility] Ordered follow-up visit as n eeded with an office visit. WALK-IN CLINIC SICK VISIT with MARY ANN MCBRIDE-BC 10/12/2020 Last Documented On 1 4:23PM ; [facility] Watch for signs/symptoms of infection WA LK-IN CLINIC SICK VISIT with MARY ANN MCBRIDE-BC 10/12/2020 Last Documented On 1 4:23PM ; [facility] Continue current medication SICK VISIT with NINI MALAGON SCRUFF WORKER-C 08/13/2020 Last Documented On 0 5:06PM ; [facility] The options include close observation SI CK VISIT with DAMASO MALAGON SCRUFF WORKER-C 08/13/2020 Last Documented On 0 5:06PM ; [facility] Ordered Clinical summary pro vided to patient . Plan discussed and patient/parent/caregiver states understanding PROBLEM VISIT with OLGA LIDIA RILEY PA-C 10/30/2019 Last Documented On 0 4:14PM ; [facility] Ordered follow-up visit as n eeded with an office visit. Will get xrays of your neck first and see how bad arthritis is. OK to take Aleve as needed. Discussed carpal tunnel--can wear wrist splints at night and during the day as needed (especially with activities that aggravate symptoms). Discussed nerve conduction studies if splinting doesn't help. Call sooner if needed PROBLEM VISIT with OLGA LIDIA RILEY PA-C 10/30/2019 Last Documented On 0 4:14PM ; [facility] Ordered Clinical summary pro vided to patient . Plan discussed and patient/parent/caregiver states understanding PROBLEM VISIT with OLGA LIDIA RILEY PA-C 09/19/2019 Last Documented On 9 3:46PM ; [facility] Ordered follow-up visit as n eeded with an office visit. Local heat to area x 20min, few times a day. Can apply antibiotic ointment to area as needed. Call if area becomes red, warm, tender PROBLEM VISIT with OLGA LIDIA RILEY PA-C 09/19/2019 Last Documented On 9 3:46PM ; [facility] Ordered patient will call fo r appointment as needed WALK-IN CLINIC SICK VISIT with MARY ANN SELF [facility] 10/25/2018 Last Documented On 9 11:08AM ; [facility] Ordered referred to primary care physician WALK-IN CLINIC SICK VISIT with MARY ANN SELF [facility] 10/25/2018 Last Documented On 9 11:08AM ; [facility] Ordered return to the clinic if condition worsens or new symptoms arise WALK-IN CLINIC SICK VISIT with MARY ANN SELF [facility] 10/25/2018 Last Documented On 9 11:08AM ; [facility] Ordered Transition in care, clinical summary provided WALK-IN CLINIC SICK VISIT with MARY ANN SELF [facility] 10/25/2018 Last Documented On 9 11:08AM ; [facility] Ordered patient will call fo r appointment as needed WALK-IN CLINIC SICK VISIT with PÉREZ BERMUDEZ [facility] 10/15/2017 Last Documented On 8 10:39AM ; [facility] Ordered return to the clinic if condition worsens or new symptoms arise WALK-IN CLINIC SICK VISIT with PÉREZ BERMUDEZ [facility]- 10/15/2017 Last Documented On 8 10:39AM ; [facility] Ordered return to the clinic if condition worsens or new symptoms arise SICK VISIT with HIRO HAINES MD 11/25/2016 Last Documented On 7 10:43AM ; [facility] Ordered Transition in care, clinical summary provided PROBLEM VISIT with HIRO HAINES MD 01/01/2014 Last Documented On 4 8:29PM ; [facility] Ordered Clinical summary pro vided to patient SICK VISIT with EDISON LEYVA D.O. 04/20/2013 Last Documented On 3 2:30PM ; [facility] Ordered patient to call if p joem develops 6 MONTH CHECK with HIRO HAINES MD 07/18/2012 Last Documented On 2 7:12PM ; [facility] Pending Tests Order Diagnosis Results Due Ordering P rovider Therapy - Physical Therapy Physical Therapy Pain in right wrist 10/05/23 HIRO NGUYEN MD Last Documented On 4 4:06PM ; [facility] Therapy - Occupational Therapy Occupational Therapy Pain in right wrist 10/05/23 HIRO HAINES MD Last Documented On 4 4:06PM ; [facility] Lab LIPID PANEL 04/02/24 HIRO MATTHEWS MD Last Documented On 4 8:04AM ; [facility] Lab CMP 04/02/24 HIRO DIAZ MD Last Documented On 4 8:04AM ; [facility] Referrals To Diagnosis Reamer Hand TISH PORTER MD Dysphagi a NOS Note: DR Chen FOR ESOPHAGUS STR ETCHING, PLEASE VERIFY WITH PRICE KIMBLE, SEE TODAYS NOTE Last Documented On 1 2:22PM ; [facility] Urologist BPH W/O Urinary Obs/LUTS Note: DR VENEGAS FOR POSSIB LE TURP Last Documented On 4 9:24AM ; [facility] ENT Specialist [facility] [facility] - [address] Room [id number] - Chronic sinusitis, unspecified Note: Dr. Maral Yanes [facility], [phone] Last Documented On 8 12:32AM ; [facility] ENT Specialist GHISLAINE WHITTINGTON MD Aural verti go, unspecified ear Last Documented On 9 10:01PM ; [facility] Orthopedic PARISH GARCIA DO - [address] [id number] - Carpal tunnel syndrome, bilateral upper limbs Last Documented On 0 9:38PM ; [facility] Pain Management Cervicalgia Note: PAIN MANAGEMENT Last Documented On 1 6:47PM ; [facility] Orthopedic WASH Cervicalgia Note: Referral to Dr. Adair Burch at [facility] for further eval Last Documented On 1 9:54PM ; [facility] ENT Specialist MICHELLE NGUYỄN DO Otitis externa in oth diseases classd elswhr, left ear Last Documented On 2 5:29PM ; [facility] Pain Management [facility] - [address] [place] [id number] - Spinal stenosis, cervical region Note: consent for C6-7 inter laminar epidural Last Documented On 2 2:04PM ; [facility] Pain Management TONO ONEIL MD - [address] [id number] - Other lesions of median nerve, right upper limb Note: Right Median NErve Blo ck at wrist under US guidance.No PIV. No hold ASA/NSAIDs, No blood thinners. No corporate driver needed. Last Documented On 2 2:05PM ; [facility] Orthopedic JOSE RDZ DO Carpal tunnel sy ndrome, right upper limb Last Documented On 4 10:44AM ; [facility] Wire Saw Operator THIEN LOZANO MD [facility] is[facility] [place] coronary artery w/o ang pctrs Note: Referred to cardiology Dr. Lozano for elevated calcium score and positive family history. Last Documented On 3 5:52PM ; [facility] Instructions to patient No reduced physical activity -release to full activities Last Documented On 3 2:30PM ; [facility] Intervention and counseling on cessation of tobacco use Last Documented On 3 1:54PM ; [facility] Intervention and counseling on cessation of tobacco use Last Documented On 2 9:08AM ; [facility] Intervention and counseling on cessation of tobacco use Last Documented On 2 8:52AM ; [facility] Maintain a healthy diet and normal weight. Increased weight leads to problems with blood pressure and diabetes. Decrease saturated fat in your diet and increase regular protein (meat, fish, chicken, and eggs, or beans. lentils, and tofu), and grains such as rice. Get information from your caregiver, if needed Last Documented On 1 10:22AM ; [facility] Avoid walking barefoot Last Documented On 10:22AM ; [facility] Wear appropriate shoes Last Documented On 10:22AM ; [facility] Elevate head of bed Last Documented On 1 10:22AM ; [facility] Maintain good oral hygiene Last Documented On 1 10:22AM ; [facility] Regular healthcare visits Last Documented On 1 10:22AM ; [facility] Observe the stool for Blood Last Documented On 1 10:22AM ; [facility] Recommend Calcium supplement ation and weight bearing exercise Last Documented On 1 10:22AM ; [facility] Go to the emergency room if condition worsens Last Documented On 1 4:22PM ; [facility] Watch for signs/symptoms of infection Last Documented On 1 4:22PM ; [facility] Watch for signs/symptoms of infection, return to the clinic if seen Last Documented On 1 4:22PM ; [facility] Instructions for patient Last Documented On 9 11:04AM ; [facility] Return to the clinic if cond ition worsens or new symptoms arise Last Documented On 1 9:19AM ; [facility] Return to the clinic if cond ition worsens or new symptoms arise Last Documented On 1 8:21AM ; [facility] Increase water po Last Documented On 0 10:35PM ; [facility] Education and Decision Aids were provided during visit for: Patient education about home safety plans for prevention of falls : Patient completed a Fall risk assesment and was provided fall risk education materials Last Documented On 4 8:09AM ; [facility] Patient education about orth opedic activities Last Documented On 3 2:30PM ; [facility] Patient education about home safety plans for prevention of falls : Patient completed a Fall risk assesment and was provided fall risk education materials Last Documented On 3 8:11AM ; [facility] Patient education about home safety plans for prevention of falls : Patient completed a Fall risk assesment and was provided fall risk education materials Last Documented On 3 9:55AM ; [facility] Patient education about home safety plans for prevention of falls : Patient completed a Fall risk assesment and was provided fall risk education materials Last Documented On 2 9:43AM ; [facility] Patient education about orth opedic activities Last Documented On 2 9:46AM ; [facility] Patient education about home safety plans for prevention of falls : Patient completed a Fall risk assesment and was provided fall risk education materials Last Documented On 1 7:34AM ; [facility] Patient education about home safety plans for prevention of falls : Patient completed a Fall risk assesment and was provided fall risk education materials Last Documented On 1 9:06AM ; [facility] Patient education about a pr oper diet Last Documented On 1 10:22AM ; [facility] Patient education about phys ical activity benefits Last Documented On 1 10:22AM ; [facility] Patient education about medi cation Last Documented On 1 10:22AM ; [facility] Patient education about medi cation Last Documented On 1 10:22AM ; [facility] Patient education about the proper use of medications Last Documented On 1 10:22AM ; [facility] Patient education about the proper use of medications Last Documented On 1 10:22AM ; [facility] Patient education about home safety plans for prevention of falls : Patient completed a Fall risk assesment and was provided fall risk education materials Last Documented On 1 10:18AM ; [facility] Patient education about home safety plans for prevention of falls Last Documented On 1 10:22AM ; [facility] Patient education about inju ry prevention Falls are a leading cause of injury and while they affect all age groups, have greater short and terminal operations supervisor impact on older age groups. Of those who fall, 20% to 30% suffer moderate to severe injuries such as hip fractures (a break in the bone) or a head injury that reduce mobility and independence, and increase the risk of early . Falls are a leading cause of trauma injures to the brain. However falls are not necessarily a part of life or normal aging. Falls are by no mean a certainty and it is possible for individuals and their families to use preventive measures to significantly decrease the likelihood that anyone and especially an older adult will fall Last Documented On 1 10:22AM ; [facility] Patient education about geraldine ry strategies Learn a new skill. ~Spend time with friends and family. ~Use memory tools such as big calendars, to-do lists, and notes to yourself. ~Put wallet or purse ,keys,and glasses in the same place each day. ~Get lots of rest. ~Exercise and eat well Last Documented On 1 10:22AM ; [facility] Patient education about anti biotics: need to finish even if feeling better Last Documented On 7 10:36AM ; [facility] Parent education about medic ation use Last Documented On 0 10:35PM ; [facility] Assessments Includes: Assessments for all patient encounters Findings Encounter Date Trigger finger of the right middle finger ORTHO ESTABLISHED PATIENT with MERCEDES Archer 01/27/2024 Last Documented On 4 3:25PM ; [facility] Assessment of tingling of the hands CHECK UP wit nesha HAINES MD 10/05/2023 Last Documented On 4 4:06PM ; [facility] Benign prostatic hypertrophy CHECK UP with GAB HAINES MD 10/05/2023 Last Documented On 4 4:06PM ; [facility] Compression arthralgia of th e right ulna/radius/wrist CHECK UP with HIRO HAINES MD 10/05/2023 Last Documented On 4 4:06PM ; [facility] Hyperlipidemia CHECK UP with HIRO HAINES MD 10/05/2023 Last Documented On 4 4:06PM ; [facility] Trigger finger of the right middle finger CHECK UP with HIRO HAINES MD 10/05/2023 Last Documented On 4 4:06PM ; [facility] Trigger finger (acquired) FOLLOW UP with JOSE RDZ DO 05/27/2023 Last Documented On 3 2:35PM ; [facility] Trigger finger of the right middle finger FOLLOW UP with JOSE RDZ DO 05/27/2023 Last Documented On 3 2:35PM ; [facility] Actinic keratosis CHECK UP with HIRO HEATH MD 04/06/2023 Last Documented On 3 5:52PM ; [facility] Benign prostatic hypertrophy CHECK UP with GAB HAINES MD 04/06/2023 Last Documented On 3 5:52PM ; [facility] Coronary artery disease CHECK UP with HIRO SOMERS MD 04/06/2023 Last Documented On 3 5:52PM ; [facility] Hyperlipidemia CHECK UP with HIRO HAINES MD 04/06/2023 Last Documented On 3 5:52PM ; [facility] Right trigger finger (acquired) CHECK UP with ANIL HAINES MD 04/06/2023 Last Documented On 3 5:52PM ; [facility] Arthralgia of left shoulder region CHECK UP with HIRO HAINES MD 10/06/2022 Last Documented On 3 11:47PM ; [facility] Hyperlipidemia CHECK UP with HIRO HAINES MD 10/06/2022 Last Documented On 3 11:47PM ; [facility] RIGHT KNEE PAIN CHECK UP with HIRO HAINES MD 10/06/2022 Last Documented On 3 11:47PM ; [facility] De Quervain's tenosynovitis FOLLOW UP with ROCIO Archer 04/30/2022 Last Documented On 2 9:32AM ; [facility] Right carpal tunnel syndrome FOLLOW UP with ROBE RT E JULIUS Archer 04/30/2022 Last Documented On 2 9:32AM ; [facility] Benign prostatic hypertrophy CHECK UP with GAB HAINES MD 04/03/2022 Last Documented On 2 10:33PM ; [facility] Hyperlipidemia CHECK UP with HIRO HAINES MD 04/03/2022 Last Documented On 2 10:33PM ; [facility] Right carpal tunnel syndrome FOLLOW UP with ROBE RT E JULIUS Archer 03/09/2022 Last Documented On 2 9:11AM ; [facility] Cerumen impaction COVID SICK VISIT- ES TABLISHED PATIENT with CARLOS RUIZ SCRUFF WORKER-C 02/28/2022 Last Documented On 2 3:43PM ; [facility] Right carpal tunnel syndrome FOLLOW UP with ROBE RT E JULIUS Archer 02/09/2022 Last Documented On 2 9:59AM ; [facility] Right carpal tunnel syndrome FOLLOW UP with ROBE RT E JULIUS Archer 01/23/2022 Last Documented On 2 1:56PM ; [facility] Carpal tunnel syndrome -right wrist ORTH O ESTABLISHED PATIENT with JOSEPETR RDZ DO 12/25/2021 Last Documented On 2 9:49AM ; [facility] Right carpal tunnel syndrome ORTHO ESTAB LISHED PATIENT with JOSE G KOTH DO 12/25/2021 Last Documented On 2 9:49AM ; [facility] Spontaneous rupture of forearm tendon SD OBLEM VISIT with PÉREZ BERMUDEZ PMHNP-BC SCRUFF WORKER-BC 11/06/2021 Last Documented On 2 12:41PM ; [facility] [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 - right hand PREOP EXAM with HIRO HAINES MD 09/16/2021 Last Documented On 2 7:41PM ; [facility] [R20.1 - Hypoesthesia of ski n] numbness PREOP EXAM with HIRO HAINES MD 09/16/2021 Last Documented On 2 7:41PM ; [facility] Assessment of tingling of the hands PREOP EXAM w ith HIRO HAINES MD 09/16/2021 Last Documented On 2 7:41PM ; [facility] Cataract PREOP EXAM with HIRO HEATH MD 09/16/2021 Last Documented On 2 7:41PM ; [facility] Hyperlipidemia PREOP EXAM with HIRO HEATH MD 09/16/2021 Last Documented On 2 7:41PM ; [facility] Eczema PROBLEM VISIT with OLGA LIDIA SOLIZ INS PA-C 08/21/2021 Last Documented On 1 5:07PM ; [facility] Xerosis cutis PROBLEM VISIT with OLGA LIDIA SOLIZ INS PA-C 08/21/2021 Last Documented On 1 5:07PM ; [facility] Cerumen impaction in the left ear WALK I N PATIENT - ESTABLISHED PT with CATIE GURROLA SCRUFF WORKER-C 04/26/2021 Last Documented On 1 11:23AM ; [facility] Acute sinusitis COVID SICK VISIT- ES TABLISHED PATIENT with CARLOS LAZOCLAIR SCRUFF WORKER-C 03/21/2021 Last Documented On 1 9:05AM ; [facility] Contact with and (Suspected) exposure to COVID-19 COVID SICK VISIT- ESTABLISHED PATIENT with CARLOS Kruger RUIZ SCRUFF WORKER-C 03/21/2021 Last Documented On 1 9:05AM ; [facility] Arthralgia of the right ulna/radius/wrist CHECK UP with HIRO HAINES MD 01/27/2021 Last Documented On 1 10:35PM ; [facility] Cervicalgia CHECK UP with HIRO HAINES MD 01/27/2021 Last Documented On 1 10:35PM ; [facility] Constipation CHECK UP with HIRO HAINES MD 01/27/2021 Last Documented On 1 10:35PM ; [facility] Hyperlipidemia CHECK UP with HIRO HAINES MD 01/27/2021 Last Documented On 1 10:35PM ; [facility] Other lesion of Median nerve INJECTION with WILL BONNY ONEIL MD 01/17/2021 Last Documented On 1 7:30AM ; [facility] Right carpal tunnel syndrome INJECTION with WILL BONNY ONEIL MD 01/17/2021 Last Documented On 1 7:30AM ; [facility] Carpal tunnel syndrome FOLLOW UP with TONO ONEIL MD 01/08/2021 Last Documented On 1 8:16AM ; [facility] Cervical radiculopathy FOLLOW UP with TONO ONEIL MD 01/08/2021 Last Documented On 1 8:16AM ; [facility] Cervical spine stenosis FOLLOW UP with TONO ONEIL MD 01/08/2021 Last Documented On 1 8:16AM ; [facility] Cervical spondylosis with radiculopathy FOLLOW U P with TONO ONEIL MD 01/08/2021 Last Documented On 1 8:16AM ; [facility] Low back pain FOLLOW UP with TONO ONEIL MD 01/08/2021 Last Documented On 1 8:16AM ; [facility] Osteoarthritis of multiple sites FOLLOW UP with TONO ONEIL MD 01/08/2021 Last Documented On 1 8:16AM ; [facility] Other lesion of Median nerve FOLLOW UP with WILL BONNY ONEIL MD 01/08/2021 Last Documented On 1 8:16AM ; [facility] Cervical radiculopathy PAIN MANAGEMENT N EW CONSULT ESTABLISHED with ROJELIO CAN-BC 12/10/2020 Last Documented On 1 11:29PM ; [facility] Cervical spine stenosis PAIN MANAGEMENT NEW CONSULT ESTABLISHED with ROJELIO CAN-BC 12/10/2020 Last Documented On 1 11:29PM ; [facility] Cervical spondylosis with radiculopathy PAIN MANAGEMENT NEW CONSULT ESTABLISHED with ROJELIO CAN-BC 12/10/2020 Last Documented On 1 11:29PM ; [facility] Routine senior citizen histo ry and physical (65-80 yrs) without abnormal fin dings ANNUAL MEDICARE WELLNESS VISIT with LOGA LIDIA RILEY PA-C 12/03/2020 Last Documented On 1 11:47AM ; [facility] Chronic mycotic otitis externa PROBLEM VISIT wit nesha LIANG-C 11/29/2020 Last Documented On 1 12:03PM ; [facility] Eustachian tube dysfunction PROBLEM VISIT with Ernie DUMONTC 11/29/2020 Last Documented On 1 12:03PM ; [facility] Acute suppurative otitis med ia of the left ear PROBLEM VISIT with MARY ANN MOE 11/18/2020 Last Documented On 1 4:27PM ; [facility] Cerumen impaction in the left ear PROBLEM VISIT with OLGA LIDIA DUMONTC 11/12/2020 Last Documented On 1 12:46PM ; [facility] Eczema PROBLEM VISIT with OLGA LIDIA LIANG-C 11/12/2020 Last Documented On 1 12:46PM ; [facility] Cerumen impaction in the left ear PROBLEM VISIT with HIRO HAINES MD 11/04/2020 Last Documented On 1 10:59PM ; [facility] Cervicalgia PROBLEM VISIT with HIRO MATTHEWS MD 11/04/2020 Last Documented On 1 10:59PM ; [facility] Hearing loss PROBLEM VISIT with HIRO MATTHEWS MD 11/04/2020 Last Documented On 1 10:59PM ; [facility] Cerumen impaction in the left ear PROBLEM VISIT with HIRO HAINES MD 10/28/2020 Last Documented On 1 5:30PM ; [facility] Hearing loss PROBLEM VISIT with HIRO MATTHEWS MD 10/28/2020 Last Documented On 1 5:30PM ; [facility] Acute otitis externa of the left ear PRO BLEM VISIT with OLGA LIDIA RILEY PA-C 10/18/2020 Last Documented On 1 3:25PM ; [facility] Eustachian tube dysfunction PROBLEM VISIT with Ernie RILEY PA-C 10/18/2020 Last Documented On 1 3:25PM ; [facility] Cerumen impaction in the left ear WALK-I N CLINIC SICK VISIT with MARY ANN SELF SCRUFF WORKER-BC 10/12/2020 Last Documented On 1 4:23PM ; [facility] [R42 - Dizziness and giddine ss] dizziness 6 MONTH CHECK with HIRO HAINES MD 07/26/2020 Last Documented On 0 3:54PM ; [facility] Benign prostatic hypertrophy 6 MONTH CHECK with HIRO HAINES MD 07/26/2020 Last Documented On 0 3:54PM ; [facility] Hyperlipidemia 6 MONTH CHECK with HIRO MATTHEWS MD 07/26/2020 Last Documented On 0 3:54PM ; [facility] Low back pain 6 MONTH CHECK with HIRO MATTHEWS MD 07/26/2020 Last Documented On 0 3:54PM ; [facility] Benign prostatic hypertrophy 3 MONTH CHECK with HIRO HAINES MD 01/05/2020 Last Documented On 0 12:18AM ; [facility] Carpal tunnel syndrome 3 MONTH CHECK with HIRO HAINES MD 01/05/2020 Last Documented On 0 12:18AM ; [facility] Hyperlipidemia 3 MONTH CHECK with HIRO MATTHEWS MD 01/05/2020 Last Documented On 0 12:18AM ; [facility] Carpal tunnel syndrome GENERAL OFFICE VISIT with HIRO HAINES MD 11/08/2019 Last Documented On 0 8:33PM ; [facility] Hyperlipidemia GENERAL OFFICE VISIT with HIRO HAINES MD 11/08/2019 Last Documented On 0 8:33PM ; [facility] Splinter of fingers GENERAL OFFICE VISIT with ANIL HAINES MD 11/08/2019 Last Documented On 0 8:33PM ; [facility] Cervicalgia PROBLEM VISIT with OLGA LIDIA SPRINGER PA-C 10/30/2019 Last Documented On 0 4:14PM ; [facility] Disturbance in skin or paresthesia PROBL EM VISIT with OLGA LIDIA RILEY PA-C 10/30/2019 Last Documented On 0 4:14PM ; [facility] Hyperlipidemia 6 MONTH CHECK with HIRO MATTHEWS MD 10/06/2019 Last Documented On 0 5:29PM ; [facility] Ptosis of bilateral eyelids 6 MONTH CHECK with Suzi HAINES MD 10/06/2019 Last Documented On 0 5:29PM ; [facility] Superficial foreign body of finger ? PRO BLEM VISIT with OLGA LIDIA RILEY PA-C 09/19/2019 Last Documented On 9 3:46PM ; [facility] Superficial injury of fingers PROBLEM VISIT with HIRO HAINES MD 08/08/2019 Last Documented On 9 10:05PM ; [facility] Benign paroxysmal positional vertigo ROMINA RGENCY ROOM FOLLOW UP with HIRO HAINES MD 05/19/2019 Last Documented On 9 12:00PM ; [facility] Open wound of the left knee EMERGENCY RO OM FOLLOW UP with HIRO HAINES MD 05/19/2019 Last Documented On 9 12:00PM ; [facility] Hypotension CONSULTATION with HIRO DIAZ MD 05/08/2019 Last Documented On 9 11:14PM ; [facility] Polyneuropathy CONSULTATION with HIRO DIAZ MD 05/08/2019 Last Documented On 9 11:14PM ; [facility] Benign prostatic hypertrophy 6 MONTH CHECK with HIRO HAINES MD 04/05/2019 Last Documented On 9 9:39AM ; [facility] Hyperlipidemia 6 MONTH CHECK with HIRO MATTHEWS MD 04/05/2019 Last Documented On 9 9:39AM ; [facility] Peyronie's disease 6 MONTH CHECK with HIRO SOMERS MD 04/05/2019 Last Documented On 9 9:39AM ; [facility] Cervicalgia 6 MONTH CHECK with HIRO MATTHEWS MD 10/03/2018 Last Documented On 9 11:10AM ; [facility] Hyperlipidemia 6 MONTH CHECK with HIRO AMTTHEWS MD 10/03/2018 Last Documented On 9 11:10AM ; [facility] Palpitations 6 MONTH CHECK with HIRO MATTHEWS MD 10/03/2018 Last Documented On 9 11:10AM ; [facility] Peripheral vertigo 6 MONTH CHECK with HIRO SOMERS MD 10/03/2018 Last Documented On 9 11:10AM ; [facility] Benign prostatic hypertrophy 1 YR CHECK-UP with HIRO HAINES MD 04/04/2018 Last Documented On 8 9:10AM ; [facility] Hyperlipidemia 1 YR CHECK-UP with HIRO MATTHEWS MD 04/04/2018 Last Documented On 8 9:10AM ; [facility] Acute sinusitis WALK-IN CLINIC SICK VISIT with PÉREZ BERMUDEZ [facility]- 10/15/2017 Last Documented On 8 10:39AM ; [facility] Acute upper respiratory infection WALK-I N CLINIC SICK VISIT with PÉREZ BERMUDEZ [facility]- 10/15/2017 Last Documented On 8 10:39AM ; [facility] Acute upper respiratory infection WALK-I N CLINIC SICK VISIT with TERESSA NARANJO [facility]- 10/12/2017 Last Documented On 8 10:31AM ; [facility] Neoplasm - benign, malignant , unspecified (including cysts, polyps) WALK-IN CLINIC SICK VISIT with TERESSA NARANJO [facility]-BC 10/12/2017 Last Documented On 8 10:31AM ; [facility] Upper respiratory infection WALK-IN CLIN IC SICK VISIT with TERESSA NARANJO [facility]-BC 10/12/2017 Last Documented On 8 10:31AM ; [facility] Benign prostatic hypertrophy CONSULTATION with Suzi HAINES MD 10/05/2017 Last Documented On 8 12:23AM ; [facility] Hyperlipidemia CONSULTATION with HIRO DIAZ MD 10/05/2017 Last Documented On 8 12:23AM ; [facility] Hyperlipidemia 6 MONTH CHECK with HIRO MATTHEWS MD 04/02/2017 Last Documented On 7 9:38AM ; [facility] Low back pain 6 MONTH CHECK with HIRO MATTHEWS MD 04/02/2017 Last Documented On 7 9:38AM ; [facility] Acute sinusitis SICK VISIT with HIRO HEATH MD 11/25/2016 Last Documented On 7 10:43AM ; [facility] Benign prostatic hypertrophy 6 MONTH CHECK with HIRO HAINES MD 10/07/2016 Last Documented On 7 8:45AM ; [facility] Hyperlipidemia 6 MONTH CHECK with HIRO MATTHEWS MD 10/07/2016 Last Documented On 7 8:45AM ; [facility] Impingement of the left shoulder 6 MONTH CHECK w ith HIRO HAINES MD 10/07/2016 Last Documented On 7 8:45AM ; [facility] Actinic keratosis 6 MONTH CHECK with HIRO NGUYEN MD 03/25/2016 Last Documented On 6 12:52PM ; [facility] Benign prostatic hypertrophy 6 MONTH CHECK with HIRO HAINES MD 03/25/2016 Last Documented On 6 12:52PM ; [facility] Hyperlipidemia 6 MONTH CHECK with HIRO MATTHEWS MD 03/25/2016 Last Documented On 6 12:52PM ; [facility] Hyperlipidemia 6 MONTH CHECK with HIRO MATTHEWS MD 09/25/2015 Last Documented On 6 8:38AM ; [facility] Benign prostatic hypertrophy ELEVATED PSA MED CHECK with HIRO HAINES MD 05/01/2015 Last Documented On 5 12:17PM ; [facility] Hyperlipidemia MED CHECK with HIRO Brewster MD 05/01/2015 Last Documented On 5 12:17PM ; [facility] Benign prostatic hypertrophy 6 MONTH CHECK with HIRO HAINES MD 03/20/2015 Last Documented On 5 8:40AM ; [facility] Hyperlipidemia 6 MONTH CHECK with HIRO MATTHEWS MD 03/20/2015 Last Documented On 5 8:40AM ; [facility] Hyperlipidemia 6 MONTH CHECK with HIRO MATTHEWS MD 09/21/2014 Last Documented On 5 9:18AM ; [facility] Benign prostatic hypertrophy 6 MONTH CHECK with HIRO HAINES MD 03/21/2014 Last Documented On 4 9:15AM ; [facility] Hyperlipidemia 6 MONTH CHECK with HIRO MATTHEWS MD 03/21/2014 Last Documented On 4 9:15AM ; [facility] Benign prostatic hypertrophy PROBLEM VISIT with HIRO HAINES MD 01/01/2014 Last Documented On 4 8:29PM ; [facility] Benign prostatic hypertrophy PROBLEM VISIT with HIRO HAINES MD 11/17/2013 Last Documented On 4 8:44AM ; [facility] Benign prostatic hypertrophy 6 MONTH CHECK with HIRO HAINES MD 09/22/2013 Last Documented On 4 9:09AM ; [facility] Hyperlipidemia 6 MONTH CHECK with HIRO MATTHEWS MD 09/22/2013 Last Documented On 4 9:09AM ; [facility] Cerumen impaction PROBLEM VISIT with LILIBETH GORDON PA-C 06/29/2013 Last Documented On 3 1:30PM ; [facility] Cerumen impaction SICK VISIT with HIRO DIAZ MD 06/21/2013 Last Documented On 3 8:34AM ; [facility] Otitis externa SICK VISIT with HIRO HEATH MD 06/21/2013 Last Documented On 3 8:34AM ; [facility] Cerumen impaction SICK VISIT with HIRO DIAZ MD 04/25/2013 Last Documented On 3 8:32AM ; [facility] Otitis externa SICK VISIT with HIRO HEATH MD 04/25/2013 Last Documented On 3 8:32AM ; [facility] Otitis media POSSIBLE PERFORATION SICK VISIT wit nesha LEYVA D.O. 04/20/2013 Last Documented On 3 2:30PM ; [facility] Closed fracture of the phala nges of the right first toe 4 MONTH CHECK UP with HIRO HAINES MD 03/22/2013 Last Documented On 3 11:55PM ; [facility] Hyperlipidemia 4 MONTH CHECK UP with HIRO SOMERS MD 03/22/2013 Last Documented On 3 11:55PM ; [facility] Hyperlipidemia Health Maintenance with HIRO ALVARADO MD 11/22/2012 Last Documented On 3 9:00AM ; [facility] Hyperlipidemia 3 MONTH CHECK with HIRO MATTHEWS MD 10/18/2012 Last Documented On 3 9:01AM ; [facility] Actinic keratosis 6 MONTH CHECK with HIRO NGUYEN MD 07/18/2012 Last Documented On 2 7:12PM ; [facility] Hyperlipidemia 6 MONTH CHECK with HIRO MATTHEWS MD 07/18/2012 Last Documented On 2 7:12PM ; [facility] Actinic keratosis CHECK UP with HIRO HEATH MD 12/30/2011 Last Documented On 2 11:17PM ; [facility] Benign prostatic hypertrophy CHECK UP with GAB HAINES MD 12/30/2011 Last Documented On 2 11:17PM ; [facility] Hyperlipidemia CHECK UP with HIRO HAINES MD 12/30/2011 Last Documented On 2 11:17PM ; [facility] Hyperlipidemia * PHONE CALL with HIRO DIAZ MD 12/23/2011 Last Documented On 2 11:33PM ; [facility] Male erectile disorder * PHONE CALL with HIRO HAINES MD 12/23/2011 Last Documented On 2 11:33PM ; [facility] Dysphagia 1 MONTH CHECK with HIRO MATTHEWS MD 07/17/2011 Last Documented On 1 9:20AM ; [facility] Actinic keratosis PROBLEM VISIT with HIRO NGUYEN MD 06/18/2011 Last Documented On 1 8:24AM ; [facility] Dysphagia PROBLEM VISIT with HIRO MATTHEWS MD 06/18/2011 Last Documented On 1 8:24AM ; [facility] Chronic sinusitis SICK VISIT with HIRO DIAZ MD 06/16/2010 Last Documented On 0 10:35PM ; [facility] Hyperlipidemia CHECK UP with HIRO HAINES MD 04/18/2010 Last Documented On 0 6:33PM ; [facility] NOCTURIA CHECK UP with HIRO HAINES MD 04/18/2010 Last Documented On 0 6:33PM ; [facility] Instructions Includes: Instructions for all patient encounters Instructions to patient No reduced physical activity -release to full activities Last Documented On 3 2:30PM ; [facility] Intervention and counseling on cessation of tobacco use Last Documented On 3 1:54PM ; [facility] Intervention and counseling on cessation of tobacco use Last Documented On 2 9:08AM ; [facility] Intervention and counseling on cessation of tobacco use Last Documented On 2 8:52AM ; [facility] Maintain a healthy diet and normal weight. Increased weight leads to problems with blood pressure and diabetes. Decrease saturated fat in your diet and increase regular protein (meat, fish, chicken, and eggs, or beans. lentils, and tofu), and grains such as rice. Get information from your caregiver, if needed Last Documented On 1 10:22AM ; [facility] Avoid walking barefoot Last Documented On 1 10:22AM ; [facility] Wear appropriate shoes Last Documented On 1 10:22AM ; [facility] Elevate head of bed Last Documented On 1 10:22AM ; [facility] Maintain good oral hygiene Last Documented On 1 10:22AM ; [facility] Regular healthcare visits Last Documented On 1 10:22AM ; [facility] Observe the stool for Blood Last Documented On 1 10:22AM ; [facility] Recommend Calcium supplement ation and weight bearing exercise Last Documented On 1 10:22AM ; [facility] Go to the emergency room if condition worsens Last Documented On 1 4:22PM ; [facility] Watch for signs/symptoms of infection Last Documented On 1 4:22PM ; [facility] Watch for signs/symptoms of infection, return to the clinic if seen Last Documented On 1 4:22PM ; [facility] Instructions for patient Last Documented On 9 11:04AM ; [facility] Return to the clinic if cond ition worsens or new symptoms arise Last Documented On 1 9:19AM ; [facility] Return to the clinic if cond ition worsens or new symptoms arise Last Documented On 1 8:21AM ; [facility] Increase water po Last Documented On 0 10:35PM ; [facility] Education and Decision Aids were provided during visit for: Patient education about home safety plans for prevention of falls : Patient completed a Fall risk assesment and was provided fall risk education materials Last Documented On 4 8:09AM ; [facility] Patient education about orth opedic activities Last Documented On 3 2:30PM ; [facility] Patient education about home safety plans for prevention of falls : Patient completed a Fall risk assesment and was provided fall risk education materials Last Documented On 3 8:11AM ; [facility] Patient education about home safety plans for prevention of falls : Patient completed a Fall risk assesment and was provided fall risk education materials Last Documented On 3 9:55AM ; [facility] Patient education about home safety plans for prevention of falls : Patient completed a Fall risk assesment and was provided fall risk education materials Last Documented On 2 9:43AM ; [facility] Patient education about orth opedic activities Last Documented On 2 9:46AM ; [facility] Patient education about home safety plans for prevention of falls : Patient completed a Fall risk assesment and was provided fall risk education materials Last Documented On 1 7:34AM ; [facility] Patient education about home safety plans for prevention of falls : Patient completed a Fall risk assesment and was provided fall risk education materials Last Documented On 1 9:06AM ; [facility] Patient education about a pr oper diet Last Documented On 1 10:22AM ; [facility] Patient education about phys ical activity benefits Last Documented On 1 10:22AM ; [facility] Patient education about medi cation Last Documented On 1 10:22AM ; [facility] Patient education about medi cation Last Documented On 1 10:22AM ; [facility] Patient education about the proper use of medications Last Documented On 1 10:22AM ; [facility] Patient education about the proper use of medications Last Documented On 1 10:22AM ; [facility] Patient education about home safety plans for prevention of falls : Patient completed a Fall risk assesment and was provided fall risk education materials Last Documented On 1 10:18AM ; [facility] Patient education about home safety plans for prevention of falls Last Documented On 10:22AM ; [facility] Patient education about inju ry prevention Falls are a leading cause of injury and while they affect all age groups, have greater short and half-way impact on older age groups. Of those who fall, 20% to 30% suffer moderate to severe injuries such as hip fractures (a break in the bone) or a head injury that reduce mobility and independence, and increase the risk of early . Falls are a leading cause of trauma injures to the brain. However falls are not necessarily a part of life or normal aging. Falls are by no mean a certainty and it is possible for individuals and their families to use preventive measures to significantly decrease the likelihood that anyone and especially an older adult will fall Last Documented On 10:22AM ; [facility] Patient education about geraldine ry strategies Learn a new skill. ~Spend time with friends and family. ~Use memory tools such as big calendars, to-do lists, and notes to yourself. ~Put wallet or purse ,keys,and glasses in the same place each day. ~Get lots of rest. ~Exercise and eat well Last Documented On 1 10:22AM ; [facility] Patient education about anti biotics: need to finish even if feeling better Last Documented On 7 10:36AM ; [facility] Parent education about medic ation use Last Documented On 0 10:35PM ; [facility] Medical Equipment - Implanted Devices Includes: Current and historical Devices No Medical Equipment Recorded Medications Includes: Current and historical Medications Current Medications (continue as prescribed) Tadalafil 5 MG Oral Tablet 10/05/2023 Provider: Suzi HAINES MD Diagnosis: One tablet daily or can take 2-4 tablets (10-20mg) every 72 hours prn sexual activity Last Documented On 4 9:30AM By HIRO HAINES MD ; [facility] EQ Aspirin Adult Low Dose 81 MG Oral Tablet Delayed Release 07/14/2023 Provider: THIEN LOZANO MD Diagnosis: Last Documented On 10/05/2023 8:14AM By Melany HENRIQUEZ ; [facility] Rosuvastatin Calcium 10 MG O ral Tablet 04/06/2023 Provider: HIRO Caro Diagnosis: Mixed hyperlipid emia TAKE 1 TABLET BY MOUTH AT BEDTIME Last Documented On 3 8:50AM By HIRO HAINES MD ; [facility] Melatonin 5 MG Oral Capsule 10/06/2022 Provider: Diagnosis: Last Documented On 10/06/2022 10:00AM By Melany HENRIQUEZ ; [facility] Tamsulosin HCl 0.4MG Oral Capsule 04/05/2019 Provide r: Diagnosis: Last Documented On 9 9:16AM By HIRO HAINES MD ; [facility] Past Medications on file Rosuvastatin Calcium 10 MG Oral Tablet 10/05/2023 - 03/22/2024 Provider: HIRO HAINES MD Diagnosis: Mixed hyperlipid emia as directed one tablet a day to replace the 20mg starting a week before your bee therapy and continue for a week after bee therapy and then resume the 20mg tablet Last Documented On 03/22/2024 6:20PM By Melany HENRIQUEZ ; [facility] Rosuvastatin Calcium 10 MG Oral Tablet 02/04/2023 - 04/06/2023 Provider: HIRO HAINES MD Diagnosis: Mixed hyperlipid emia TAKE 1 TABLET BY MOUTH AT BEDTIME Last Documented On 3 8:40AM By HIRO HAINES MD ; [facility] Rosuvastatin Calcium 10 MG Oral Tablet 06/24/2022 - 02/04/2023 Provider: HIRO HAINES MD Diagnosis: Mixed hyperlipid emia TAKE 1 TABLET BY MOUTH AT BEDTIME Last Documented On 3:39PM By YEHUDA HENRIQUEZ ; [facility] Rosuvastatin Calcium 10 MG Oral Tablet 10/27/2021 - 06/24/2022 Provider: HIRO HAINES MD Diagnosis: Mixed hyperlipid emia TAKE 1 TABLET BY MOUTH AT BEDTIME Last Documented On 06/24/2022 9:53AM By Melany HENRIQUEZ ; [facility] Triamcinolone Acetonide 0.1% External Cream 09/25/2021 - 10/22/2021 Provider: OLGA LIDIA RILEY PA-C Diagnosis: apply thin later to affected area BID until waylon r. Last Documented On 04/03/2022 9:43AM By Melany HENRIQUEZ ; [facility] Fluocinolone Acetonide 0.01% External Cream 09/09/2021 - 11/06/2021 Provider: OLGA LIDIA RILEY PA-C Diagnosis: APPLY A THIN LAYER TO AFFECT ED AREAS TWICE DAILY UNTIL CLEAR (REPLACES EUCRISA) Last Documented On 11/06/2021 9:55AM By JOSSIE HENRIQUEZ ; [facility] Fluocinolone Acetonide 0.01% External Cream 08/21/2021 - 09/09/2021 Provider: OLGA LIDIA Tejada PA-C Diagnosis: Xerosis cutis Apply thin layer to affected areas BID until clear. Replaces Eucrisa. Last Documented On 09/09/2021 11:39AM By Melany HENRIQUEZ ; [facility] Eucrisa 2% External Ointment 08/21/2021 - 09/16/2021 Provider: OLGA LIDIA RILEY PA-C Diagnosis: Dermatitis, unsp ecified Apply small amount to affect ed areas BID until clear then as needed. Last Documented On 09/16/2021 1:05PM By JOSSIE HENRIQUEZ ; [facility] Amoxicillin-Pot Clavulanate 875-125 MG Oral Tablet 03/21/2021 - 08/21/2021 Provider: CARLOS RUIZ SCRUFF WORKER-C Diagnosis: Acute sinusitis, unspecified One tablet twice a day Last Documented On 1 5:05PM By OLGA LIDIA RILEY PA-C ; [facility] Rosuvastatin Calcium 10 MG Oral Tablet 02/11/2021 - 10/27/2021 Provider: HIRO HAINES MD Diagnosis: Mixed hyperlipid emia 1 TAB AT BED TIME EVERY OTHER DAY Last Documented On 10/27/2021 10:10AM By Melany HENRIQUEZ ; [facility] Amoxicillin-Pot Clavulanate 875-125 MG Oral Tablet 11/18/2020 - 11/29/2020 Provider: MARY ANN VENEGAS SCRUFF WORKER-C Diagnosis: Acute suppr otit is media w/o spon rupt ear drum, left ear One tablet twice a day Last Documented On 11/29/2020 11:01AM By Beulah HENRIQUEZ ; [facility] Ciprofloxacin HCl 0.3% Ophthalmic Solution 10/28/2020 - 11/18/2020 Provider: HIRO HEATH MD Diagnosis: as directed 3 gtts BID to left ear for 7 days Last Documented On 4:15PM By Mary Ann Venegas SCRUFF WORKER-C ; [facility] Amoxicillin-Pot Clavulanate 875-125 MG Oral Tablet 10/18/2020 - 11/04/2020 Provider: OLGA LIDIA RILEY PA-C Diagnosis: Unspecified acut e noninfective otitis externa, left ear One tablet twice a day Last Documented On 11/04/2020 9:45AM By Melany HENRIQUEZ ; [facility] Rosuvastatin Calcium 10 MG Oral Tablet 07/26/2020 - 02/11/2021 Provider: HIRO HAINES MD Diagnosis: Mixed hyperlipid emia One tablet at bed time Last Documented On 02/11/2021 12:52PM By Melany HENRIQUEZ ; [facility] Rosuvastatin Calcium 10 MG Oral Tablet 01/05/2020 - 07/26/2020 Provider: HIRO HAINES MD Diagnosis: Mixed hyperlipid emia One tablet at bed time Last Documented On 0 3:14PM By HIRO HAINES MD ; [facility] Aspirin 81 MG Oral Tablet 10/06/2019 - 10/18/2020 Prov ider: Diagnosis: Last Documented On 10/18/2020 2:55PM By Beulah HENRIQUEZ ; [facility] Rosuvastatin Calcium 10 MG Oral Tablet 10/06/2019 - 01/05/2020 Provider: HIRO HAINES MD Diagnosis: Mixed hyperlipid emia One tablet at bed time Last Documented On 0 9:30AM By HIRO HAINES MD ; [facility] Finasteride 5 MG Oral Tablet 10/02/2019 - 07/26/2020 P rovider: HIRO DIAZ MD Diagnosis: One tablet daily Last Documented On 07/26/2020 2:39PM By Ofelia Esparza LPN ; [facility] Amoxicillin-Pot Clavulanate 875-125 MG Oral Tablet 08/08/2019 - 09/19/2019 Provider: HIRO HAINES MD Diagnosis: Unsp superficial injury of left index finger, init encntr One tablet twice a day Last Documented On 9 3:25PM By OLGA LIDIA RILEY PA-C ; [facility] Sildenafil Citrate 20MG Oral Tablet 04/05/2019 - 10/06/2019 Provider: HIRO HEATH MD Diagnosis: 5 tablets once a day prn note new strength Last Documented On 10/06/2019 9:12AM By JW HENRIQUEZ ; [facility] ZyrTEC Allergy 10MG Oral Tablet 10/25/2018 - 05/08/2019 Provider: MARY ANN LEWIS Diagnosis: Unspecified Eust achian tube disorder, unspecified ear One tablet daily Last Documented On 05/08/2019 10:39AM By JW HENRIQUEZ ; [facility] Flonase 50MCG/ACT Nasal Suspension 10/25/2018 - 10/18/2020 Provider: MARY ANN LEWIS Diagnosis: Unspecified Eust achian tube disorder, unspecified ear as directed Last Documented On 10/18/2020 2:55PM By Beulah HENRIQUEZ ; [facility] Proscar 5MG Oral Tablet 08/25/2018 - 04/03/2019 Provid er: HIRO HAINES MD Diagnosis: TAKE 1 TABLET BY MOUTH ONCE DAILY Last Documented On 9 9:15AM By HIRO HAINES MD ; [facility] Welchol 625MG Oral Tablet 06/06/2018 - 04/05/2019 Prov ider: HIRO HAINES MD Diagnosis: TAKE SIX TABLETS BY MOUTH ONCE DAILY DIRECTED Last Documented On 04/05/2019 8:38AM By JW HENRIQUEZ ; [facility] Finasteride 5MG Oral Tablet 04/04/2018 - 10/06/2019 Pr ovider: Diagnosis: Last Documented On 10/06/2019 9:12AM By JW HENRIQUEZ ; [facility] Sildenafil Citrate 20MG Oral Tablet 03/12/2018 - 04/05/2019 Provider: HIRO HEATH MD Diagnosis: 5 tablets once a day prn note new strength Last Documented On 9 9:28AM By HIRO HAINES MD ; [facility] Proscar 5MG Oral Tablet 01/21/2018 - 08/25/2018 Provid er: HIRO HAINES MD Diagnosis: TAKE ONE TABLET BY MOUTH ONCE DAILY Last Documented On 8 12:10AM By HIRO HAINES MD ; [facility] Sildenafil Citrate 100MG Ora l Tablet 01/04/2018 - 03/12/2018 Provider: HIRO HEATH MD Diagnosis: as directed Last Documented On 8 5:58PM By HIRO HAINES MD ; [facility] ZyrTEC Allergy 10MG Oral Tablet 10/15/2017 - 10/18/2020 Provider: PÉREZ BERMUDEZ [facility]- SCRUFF WORKER- Diagnosis: Acute sinusitis, unspecified One tablet daily Last Documented On 10/18/2020 2:55PM By Beulah HENRIQUEZ ; [facility] Augmentin 875-125MG Oral Tablet 10/15/2017 - 10/30/2019 Provider: PÉREZ BERMUDEZ [facility]- SCRUFF WORKER- Diagnosis: Acute sinusitis, unspecified One tablet twice a day Last Documented On 10/30/2019 2:51PM By JOSSIE HENRIQUEZ ; [facility] Proscar 5MG Oral Tablet 10/05/2017 - 01/21/2018 Provider: HIRO HAINES MD Diagnosis: Benign prostatic hyperplasia without lower urinry tract symp One tablet daily Last Documented On 01/21/2018 10:08AM By CALIXTO DILLARD CMA ; [facility] Welchol 625MG Oral Tablet 04/02/2017 - 06/06/2018 Prov ider: HIRO HAINES MD Diagnosis: TAKE SIX TABLETS BY MOUTH ONCE DAILY DIRECTED Last Documented On 06/06/2018 2:51PM By CALIXTO DILLARD CMA ; [facility] Viagra 100MG Oral Tablet 11/25/2016 - 01/04/2018 Provi ye: HIRO HAINES MD Diagnosis: as directed Last Documented On 8 10:09PM By HIRO HAINES MD ; [facility] Zithromax Z-Kwabena 250MG Oral Tablet 11/25/2016 - 10/30/2019 Provider: HIRO HAINES MD Diagnosis: Other acute sinusitis DIRECTED Last Documented On 10/30/2019 2:52PM By JOSSIE HENRIQUEZ ; [facility] Welchol 625 MG Tablet 07/20/2016 - 04/02/2017 Provider : HIRO HAINES MD Diagnosis: TAKE SIX TABLETS BY MOUTH ONCE DAILY DIRECTED Last Documented On 04/02/2017 9:23AM By CALIXTO DILLARD CMA ; [facility] Pumpkin Seed Oil Capsule, conventional 09/25/2015 - Provider: Diagnosis: Last Documented On 9 9:11AM By HIRO HAINES MD ; [facility] Welchol 625 MG Tablet 05/30/2015 - 07/20/2016 Provider : HIRO HAINES MD Diagnosis: TAKE SIX TABLETS BY MOUTH ONCE DAILY DIRECTED Last Documented On 07/20/2016 3:35PM By Sherri HENRIQUEZ ; [facility] Viagra 100 MG Tablet 05/01/2015 - 11/25/2016 Provider: HIRO HAINES MD Diagnosis: HYPERLIPIDEMIA N EC/NOS as directed Last Documented On 7 10:38AM By HIRO HAINES MD ; [facility] Viagra 100 MG OR TABS 03/21/2014 - 09/21/2014 Provider : HIRO HAINES MD Diagnosis: Last Documented On 09/21/2014 8:24AM By Sherri HENRIQUEZ ; [facility] Viagra 100 MG OR TABS 03/21/2014 - 05/01/2015 Provider: HIRO HAINES MD Diagnosis: HYPERLIPIDEMIA N EC/NOS Last Documented On 5 3:05PM By HIRO HAINES MD ; [facility] Welchol 625 MG OR TABS 03/21/2014 - 05/30/2015 Provide r: HIRO HAINES MD Diagnosis: TAKE 6 TABLETS BY MOUTH EVERY DAY. Last Documented On 5 2:09PM By HIRO HAINSE MD ; [facility] Tamsulosin HCl 0.4 MG OR CAPS 03/21/2014 - 10/03/2018 Provider: Diagnosis: Last Documented On 10/03/2018 8:24AM By JW HENRIQUEZ ; [facility] VESIcare 10 MG OR TABS 03/21/2014 - 09/25/2015 Provide r: Diagnosis: Last Documented On 09/25/2015 8:10AM By JW HENRIQUEZ ; [facility] Yamila 0.5-0.4 MG OR CAPS 11/29/2013 - 03/21/2014 Provider: HIRO HAINES MD Diagnosis: BPH W/O Urinary Obs/LUTS Last Documented On 4 8:29AM By LILIBETH ALVAREZ RN STUDENT ; [facility] Yamila 0.5-0.4 MG OR CAPS 11/17/2013 - 11/29/2013 Provider: HIRO HAINES MD Diagnosis: BPH W/O Urinary Obs/LUTS Last Documented On 4 10:53AM By CECILIA MATHIAS MA ; [facility] Welchol 625 MG OR TABS 10/12/2013 - 03/21/2014 Provide r: HIRO HAINES MD Diagnosis: TAKE 6 TABLETS BY MOUTH EVERY DAY. Last Documented On 4 9:01AM By HIRO HAINES MD ; [facility] Welchol 625 MG OR TABS 09/22/2013 - 11/17/2013 Provide r: Diagnosis: TAKE 6 TABLETS BY MOUTH EVERY DAY. Last Documented On 4 7:54AM By BULMARO HENRIQUEZ ; [facility] Welchol 625 MG OR TABS 05/18/2013 - 09/22/2013 Provide r: HIRO HAINES MD Diagnosis: TAKE SIX TABLETS BY MOUTH EVERY DAY DIRECTED Last Documented On 4 8:26AM By BULMARO HENRIQUEZ ; [facility] Levitra 20 MG OR TABS 05/05/2013 - 09/22/2013 Provider : HIRO HAINES MD Diagnosis: Last Documented On 4 8:21AM By BULMARO HENRIQUEZ ; [facility] Amoxicillin 500 MG OR CAPS 04/20/2013 - 06/21/2013 Provider: EDISON LEYVA D.O. Diagnosis: OTITIS MEDIA NOS Last Documented On 3 9:46AM By BULMARO HENRIQUEZ ; [facility] Ofloxacin 0.3% OT SOLN 04/20/2013 - 06/21/2013 Provide r: EDISON LEYVA D.O. Diagnosis: OTITIS MEDIA NOS 10 DROPS Q 12 HRS IN THE RT EAR FOR 14 DAYS Last Documented On 3 9:46AM By BULMARO HENRIQUEZ ; [facility] Welchol 625 MG OR TABS 03/09/2013 - 05/18/2013 Provide r: HIRO HAINES MD Diagnosis: TAKE SIX TABLETS BY MOUTH EVERY DAY DIRECTED Last Documented On 3 10:55AM By CECILIA MATHIAS MA ; [facility] Welchol 625 MG OR TABS 12/23/2012 - 03/09/2013 Provide r: HIRO HAINES MD Diagnosis: TAKE SIX TABLETS BY MOUTH EVERY DAY DIRECTED Last Documented On 03/09/2013 4:46PM By Sherri HENRIQUEZ ; [facility] Welchol 625 MG OR TABS 11/22/2012 - 03/22/2013 Provider: HIRO HAINES MD Diagnosis: HYPERLIPIDEMIA N EC/NOS 6 TABS A DAY Last Documented On 03/22/2013 8:36AM By Sherri HENRIQUEZ ; [facility] Welchol 625 MG OR TABS 11/22/2012 - 12/23/2012 Provide r: HIRO HAINES MD Diagnosis: 6 TABS A DAY Last Documented On 3 11:23AM By HIRO HAINES MD ; [facility] Welchol 625 MG OR TABS 10/28/2012 - 11/22/2012 Provide r: HIRO HAINES MD Diagnosis: 1 PACK DAILY Last Documented On 3 8:41AM By HIRO HAINES MD ; [facility] Levitra 20 MG OR TABS 03/29/2012 - 03/22/2013 Provider : HIRO HAINES MD Diagnosis: TAKE ONE-HALF TO ONE TABLET BY MOUTH NEEDEDNO MORE THAN ONCE DAILY Last Documented On 03/22/2013 8:38AM By Sherri HENRIQUEZ ; [facility] Cialis 5 MG OR TABS 03/07/2012 - 07/18/2012 Provider: HIRO HAINES MD Diagnosis: BPH W/O Urinary Obs/LUTS Last Documented On 07/18/2012 3:10PM By CECILIA MATHIAS MA ; [facility] Cialis 5 MG OR TABS 12/30/2011 - 03/07/2012 Provider: HIRO HAINES MD Diagnosis: BPH W/O Urinary Obs/LUTS PT GIVEN COUPON TOO FOR NEXT FILL Last Documented On 2 1:19PM By HIRO HAINES MD ; [facility] Levitra 5 MG OR TABS 10/26/2011 - 07/18/2012 Provider: CORDELIA KENNEDY PA-C Diagnosis: take one tablet one hour before sexual activity Last Documented On 07/18/2012 2:59PM By CECILIA MATHIAS MA ; [facility] Viagra 100 MG OR TABS 10/23/2011 - 07/18/2012 Provider : HIRO HAINES MD Diagnosis: TAKE 1/2 TO 1 TABLET BY MOUTH NEEDED WM Last Documented On 07/18/2012 2:59PM By CECILIA MATHIAS MA ; [facility] NexIUM 40 MG OR CPDR 06/18/2011 - 07/18/2012 Provider: HIRO HAINES MD Diagnosis: Last Documented On 07/18/2012 2:59PM By CECILIA MATHIAS MA ; [facility] EpiPen 2-Kwabena 0.3 MG/0.3ML IJ BETZAIDA 06/18/2011 - 03/22/2013 Provider: HIRO HEATH MD Diagnosis: Last Documented On 03/22/2013 8:38AM By Sherri HENRIQUEZ ; [facility] Viagra 100 MG OR TABS 03/05/2011 - 10/23/2011 Provider : HIRO HAINES MD Diagnosis: TAKE 1/2 TO 1 TABLET BY MOUTH NEEDED Last Documented On 10/23/2011 4:08PM By Sherri HENRIQUEZ ; [facility] Nasonex 50 MCG/ACT NA SUSP 06/16/2010 - 07/18/2012 Provider: HIRO HAINES MD Diagnosis: CHRONIC SINUSITI S NOS Last Documented On 07/18/2012 2:59PM By CECILIA MATHIAS MA ; [facility] Bactrim DS 800-160 MG OR TABS 06/16/2010 - 07/18/2012 Provider: HIRO HAINES MD Diagnosis: CHRONIC SINUSITI S NOS Last Documented On 07/18/2012 2:59PM By CECILIA MATHIAS MA ; [facility] Viagra 100 MG OR TABS 03/20/2009 - 03/05/2011 Provider : HIRO HAINES MD Diagnosis: 1/2-1 PRN Last Documented On 1 11:26AM By HIRO HAINES MD ; [facility] Medications Administered Includes: Administered Medications in patient's chart Medications Administered Diagnosis Date Pro vider dexAMETHasone Sodium Phospha te 10 MG/ML IJ SOLN 01/17/2021 TONO ONEIL MD administered by Dr. Oneil Last Documented On 1 12:02PM By Layla Hedrick RN ; [facility] Xylocaine 2% IJ SOLN 01/17/2021 TONO ONEIL MD administered by Dr. Oneil Last Documented On 1 12:03PM By Layla Hedrick RN ; [facility] BUPivacaine HCl 0.5% IJ SOLN 01/17/2021 TONO ONEIL MD administered by Dr. Oneil Last Documented On 1 12:04PM By Layla Hedrick RN ; [facility] Xylocaine 1% IJ SOLN 01/17/2021 TONO ONEIL MD administered by Dr. Oneil Last Documented On 1 12:00PM By Layla Hedrick RN ; [facility] Sodium Chloride 0.9% IJ SOLN 01/17/2021 TONO ONEIL MD administered by Dr. Oneil Last Documented On 1 12:01PM By Layla Hedrick RN ; [facility] Vital Signs Includes: Vital Signs from 11/03/2023 through 11/03/2024 Vital Name 01/27/2024 03:06P Height (in) 73 Blood Pressure Sitting (mmHg) 146/82 Last Documented: On 01/27/2024 3:11PM ; [facility] Results Includes: Results from 11/03/2023 through 11/03/2024 No Results Recorded For Specified Dates History of Present Illness History of Present Illness not supported for this document type No History of Present Illness Recorded Social History Description Last Updated Consuming 5 or more drinks per day None 10/05/2023 Last Documented On 4 4:06PM ; [facility] 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 None 10/05/2023 Last Documented On 4 4:06PM ; [facility] Tobacco non-user 02/28/2022 Last Documented On 2 3:43PM ; [facility] Former smoker 01/23/2022 Last Documented On 2 1:56PM ; [facility] Current nonsmoker 04/26/2021 Last Documented On 1 11:23AM ; [facility] [PHQ-2] Patient Health Questionnaire 2 i tem total score: 2 (Scale: 0-6) 12/10/2020 Last Documented On 1 11:29PM ; [facility] Difficulty walking 12/10/2020 Last Documented On 1 11:29PM ; [facility] No consumption of alcohol 12/10/2020 Last Documented On 1 11:29PM ; [facility] Not using drugs 12/10/2020 Last Documented On 1 11:29PM ; [facility] Alcohol use couple times a week; Last Documented On 1 11:47AM ; [facility] Able to walk 11/04/2020 Last Documented On 1 10:59PM ; [facility] Non-smoker 07/26/2020 Last Documented On 0 3:54PM ; [facility] Currently APOLONIA (1964) ~NEFTALI 1 968 ~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 04/05/2019 Last Documented On 9 9:39AM ; [facility] No tobacco use 04/05/2019 Last Documented On 9 9:39AM ; [facility] Smoking status : Never smoker 10/25/2018 Last Documented On 9 11:08AM ; [facility] Procedures and Surgical History Includes: Procedures from 11/03/2023 through 11/03/2024 Procedures Code Diagnosis Performing Provider Service Location Service Date INJECTION(S); SINGLE TENDON SHEATH, LIGAMENT, APONEUROSIS (RIGHT HAND, THIRD DIGIT) 28847 Trigger finger, right middle finger MERCEDES Archer [facility] 01/27/2024 Last Documented On 4 3:17PM ; [facility] FEE (Signi/Sep Eval & Man) [id number] Trigger finger, right middle finger MERCEDES Archer [facility] 01/27/2024 Last Documented On 4 3:17PM ; [facility] KENALOG INJECTION 10MG [id number] Trigger finger, right middle finger MERCEDES Archer [facility] 01/27/2024 Last Documented On 4 3:17PM ; [facility] INJECTION(S); SINGLE TENDON SHEATH, LIGAMENT, APONEUROSIS (RIGHT HAND, THIRD DIGIT) [id number] Trigger finger, right middle finger MERCEDES Archer [facility] 01/27/2024 Last Documented On 4 3:17PM ; [facility] Surgical History Last Updated History of appendectomy AGE 13 ~eyelid lift faustina 3-20 ~RT carpal tunnel 06/2020 Dr. Garcia. ~LT carpal tunnel 01/2020 Dr. Garcia. ~second right carpal tunnel surgery - Dr Rdz 10/06/2022 Last Documented On 3 11:47PM ; [facility] Prior surgery 12/25/2021 Last Documented On 2 9:49AM ; [facility] No Pacemaker 12/10/2020 Last Documented On 1 11:29PM ; [facility] Medical History Includes: Medical History in patient's chart Description Last Updated No fall 02/28/2022 Last Documented On 2 3:43PM ; [facility] No recent change in medical history 10/21 Last Documented On 2 12:41PM ; [facility] No Pain Pump 12/10/2020 Last Documented On 1 11:29PM ; [facility] No Spinal cord stimulator 12/10/2020 Last Documented On 1 11:29PM ; [facility] Please list all surgeries Carpal tunnel . 12/10/2020 Last Documented On 1 11:29PM ; [facility] No exposure to a contagious disease 07/22 Last Documented On 0 5:06PM ; [facility] No exposure to a viral disease 0 Last Documented On 0 5:06PM ; [facility] Not taking OTC medications 08/13/2020 Last Documented On 0 5:06PM ; [facility] History of arthritis ~Benign prostatic h ypertrophy 07/26/2020 Last Documented On 0 3:54PM ; [facility] History of hyperlipidemia 07/26/2020 Last Documented On 0 3:54PM ; [facility] [facility] Denies a fear of falling. 07/26/2020 Last Documented On 0 3:54PM ; [facility] Has had no fall in the last 12 months. 1 09/25/2019 Last Documented On 0 3:54PM ; [facility] Family History Includes: Family History in patient's chart Description Last Updated Paternal history of stroke/paralysis Last Documented On 1 11:29PM ; [facility] Family history of high cholesterol 12/03 Last Documented On 1 11:47AM ; [facility] Family history unchanged 10/15/2017 Last Documented On 8 10:39AM ; [facility] Review of Systems Review of Systems not supported for this document type No Review of Systems Recorded Mental Status Description Oriented to time, place, and person Functional Status No Functional Status Recorded Physical Exam Physical Exam not supported for this document type No Physical Exam Recorded Immunizations Includes: Immunizations in patient's chart Vaccine Dose # Date Site Reaction(s) Status Source Boostrix (Tdap) 1 05/09/2019 Com plete (Reported) Patient Last Documented On 05/26/2019 3:31PM ; [facility] Note: Administered @ [facility] COVID-19 Pfizer 1 01/27/2021 Com plete (Reported) Patient Last Documented On 1 10:35AM ; [facility] COVID-19 Pfizer 2 02/19/2021 Left Arm Complete (Re ported) Patient Last Documented On 1 8:28AM ; [facility] Allergies Includes: Active, inactive, and resolved Allergies Substance Type Reaction Onset Date Resolved Date Statu s Welchol Allergy CONSTIPATION 04/05/2019 Active Last Documented On 4 2:57PM ; [facility] Encounters Includes: Encounters from 11/03/2023 through 11/03/2024 Encounter Provider Location Date Check-In Time Check-Out Time Diagnosis ORTHO ESTABLISHED PATIENT MERCEDES Archer [facility] 01/27/20 24 2:51PM 3:22PM Trigger Finger of Right Middle Finger Insurance Includes: Active Insurance Policies Plan Name Member ID Group # Subscriber Relationship Effect david Dates 1 - MEDICARE PART A CLAIMS/NGS [id number] ARTUR LAI Self 08/20/2011 - Unknown 2 - [employer] MEDICARE SUPPLEMENT [id number] ARTUR LAI Self Clinical Notes Includes: Signed Clinical Notes starting from 10/09/2022 * Progress note Date Encounter Last Documented by 01/27/2024 ORTHO ESTABLISHED PATIENT Last d ocumented on 01/27/2024; 3:25 PM, MERCEDES Archer; [facility] Active Problems & Conditions - L57.0 - Actinic Keratosis - N40.0 - Benign Prostatic Hypertrophy - G56.01 - Carpal Tunnel Syndrome Right - right carpal tunnel revision on 01/28/[address] Koth - E78.2 - Hyperlipidemia - G56.11 - [...] reason. None. 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 Functional: Able to walk. [PHQ-2] Patient [...]
[2024-11-03 08:51] LABS: Estimated Glomerular Filt Rate 59
== END 2024-11-03 08:12 | disposition home or self-care (01) ==
PROVIDERS: Visit Provider Urology
DX: R31.29 Other microscopic hematuria (principal)
CPT/HCPCS: 74018; 74178; Q9967

== ENCOUNTER 2025-01-12 12:10 | Outpatient (CLI) | payer MEDICARE, SELFPAY ==
--- OUTSIDE RECORDS SUMMARY | 2025-01-12 12:17 | XMS_ITS | Clinical Summary ---
Author Organization [place] [id number] [facility] Address [address] [place] [address] Care Team Providers Care Fiberglass Luggage Molder Name Role Phone Elving-DialAnh MD Primary Care Provider Allergies No known active allergies Medications tamsulosin (FLOMAX) 0.4 mg extended release capsule daily 6 Active aspirin 81 mg enteric coated tabletIndicatio ns:Atherosclero sis of [place] coronary artery of [place] heart without angina pectoris,Elevat ed coronary artery calcium score Take 1 tablet (81 mg total) by mouth daily 30 tablet 11 3 11/14/19 26 Active finasteride (PROSCAR) 5 mg tablet Take 1 tablet (5 mg total) by mouth daily 5 Active rosuvastatin (CRESTOR) 20 mg tabletIndicatio ns:Atherosclero sis of [place] coronary artery of [place] heart without angina pectoris,Elevat ed coronary artery calcium score,Hyperlipi demia LDL goal <70 Take 1 tablet by mouth once daily 90 tablet 3 5 Active rosuvastatin (CRESTOR) 20 mg tabletIndicatio ns:Atherosclero sis of [place] coronary artery of [place] heart without angina pectoris,Elevat ed coronary artery calcium score,Hyperlipi demia LDL goal <70 Take 1 tablet (20 mg total) by mouth daily 90 tablet 3 3 12/29/19 25 Discontinued Active Problems Problem Noted Date Diagnosed Date Right carotid bruit 11/14/2024 RBBB 03/31/2024 Erectile dysfunction 09/23/2023 Elevated coronary artery calcium score 3 Atherosclerosis of [place] co ronary artery of [place] heart without angina pectoris 06/08/2023 Family history [...] keratosis 12/30/2011 Hyperlipidemia LDL goal <70 01/16/2009 Encounters Date Type Department Care Team Description 11/17/2024 Results Follow-Up [facility] Cardiology at [address] [place] [address] [phone] Thien Du MD 11/15/2024 8:00 AM SOLID WASTE MANAGEMENT ENGINEER Ancillary Procedure [facility] Vascular and Vein Surgery at [address] [place] [address] [phone] Right carotid bruit 11/14/2024 2:45 PM SOLID WASTE MANAGEMENT ENGINEER Office Visit [facility] Cardiology at [address] [place] [phone] Thien Du MD RBBB (Primary Dx); Hyperlipidemia LDL goal <70; Elevated coronary artery calcium score; Atherosclerosis of [place] coronary artery of [place] heart without angina pectoris; Family history of coronary artery disease; Right carotid bruit 11/13/2024 Orders Only [facility] Cardiology [address] [facility] [address] [place] [phone] ProviderMargarita MD from Last 3 Months Surgical History Surgery Date Site/Laterality Comments APPENDECTOMY VASECTOMY Medical History Medical History Date Comments GERD (gastroesophageal reflux disease) Arthritis Family History Medical History Relation Name Comments Heart attack Brother 1 Blake Romero Heart disease Brother 2 Jus Alemanion Stroke Father Rito Romero Arthritis Mother Jazmin Alemanion Cancer Sister 1 Karime Michel Diabetes Sister 2 Cassi Riojas Relation Name Status Comments Brother 1 Blake Nick Brother 2 Jus Nick Father Rito [...] more drinks on one occasion? Never 06/08/2023 Sex and Gender Information Value Date Recorded Sex Assigned at Not on file Legal Sex Male 8:23 AM SOLID WASTE MANAGEMENT ENGINEER Gender Identity Male 02/15/2021 10:13 AM CDT Sexual Orientation Straight 02/15/2021 10 :14 AM CDT Obstetrics History Last Filed Vital Signs Vital Sign Reading Time Taken Comments Blood Pressure 126/76 11/14/2024 2:45 PM SOLID WASTE MANAGEMENT ENGINEER Pulse 85 11/14/2024 2:45 PM SOLID WASTE MANAGEMENT ENGINEER Temperature - - Respiratory Rate - - Oxygen Saturation 96% 11/14/2024 2:45 PM SOLID WASTE MANAGEMENT ENGINEER Inhaled Oxygen Concentration - - Weight 94.3 kg (208 lb) 11/14/2024 2:45 PM SOLID WASTE MANAGEMENT ENGINEER Height 182.9 cm (6') 11/14/2024 2:45 PM SOLID WASTE MANAGEMENT ENGINEER Body Mass Index 28.21 11/14/2024 2:45 PM SOLID WASTE MANAGEMENT ENGINEER Plan of Treatment Health Maintenance Due Date Last Done Comments Depression Screening 1945 Fall Risk Assessment 1945 Hepatitis C Screening 1945 Hepatitis B Screening 1964 Pneumococcal vaccine 65+ (1 of 1 - PCV) 1996 Zoster Vaccine (1 of 2) 1996 Well Visit 65+ 2011 Influenza Vaccine (Season Ended) 2025 DTaP/Tdap/Td Vaccine (2 - Td or Tdap) 05/09/2029 Procedures Procedure Name Priority Date/Time Associated Diagnosis Comments US CAROTIDS DUPLEX BILATERAL Schedule Routine, Read Routine (OP Routine) 11/15/2024 8:18 AM SOLID WASTE MANAGEMENT ENGINEER Right carotid bruit from Last 3 Months Results * US Carotids Duplex Bilateral (11/15/2024 8:18 AM SOLID WASTE MANAGEMENT ENGINEER) Anatomical Region Laterality Modality Vascular Bilateral Ultrasound 11/15/2024 7:47 AM SOLID WASTE MANAGEMENT ENGINEER Narrative 11/17/2024 2:01 PM SOLID WASTE MANAGEMENT ENGINEER Vascular & Vein Surgery [facility] [place] [address] Carotid Duplex Ultrasound Report Patient Name: ARTUR ROMERO L : 1945 (79y 1m) Study Date: 11/15/2024 7:47:06 AM Gender: M Telegrapher Agent: Location: [facility] Ref Provider: THIEN DU Quality: Adequate Order Provider: THIEN DU PROCEDURES: Carotid Report: Carotid duplex examination of the extracranial arteries was performed using 2D, color and spectral Doppler. INDICATIONS: Rt sided bruit. HISTORY: HLD. CAD. COMPARISONS: No previous exams. MEASUREMENTS: Right Value Left Value Rt Subc PSV 253 cm/sec LT Prox CCA PSV 113 cm/sec RT Prox CCA PSV 96 cm/sec LT Prox CCA EDV 15 cm/sec RT Prox CCA EDV 12 cm/sec LT Distal CCA PSV 56 cm/sec RT Distal CCA PSV 62 cm/sec LT Distal CCA EDV 13 cm/sec RT Distal CCA EDV 12 cm/sec LT Prox ICA PSV 67 cm/sec RT Prox ICA PSV 69 cm/sec LT Prox ICA EDV 11 cm/sec RT Prox ICA EDV 13 cm/sec LT Mid ICA PSV 77 cm/sec RT Mid ICA PSV 72 cm/sec LT Mid ICA EDV 27 cm/sec RT Mid ICA EDV 21 cm/sec LT Distal ICA PSV 76 cm/sec RT Distal ICA PSV 84 cm/sec LT Distal ICA EDV 26 cm/sec RT Distal ICA EDV 22 cm/sec LT ECA Prx PSV 84 cm/sec RT ECA Prx PSV 94 cm/sec LT ICA/CCA 1.20 ratio RT ICA/CCA 1.11 ratio Lt Vert Dst PSV 55 cm/sec Rt Vert Dst PSV 35 cm/sec FINDINGS: Rt Common Carotid Artery: Duplex imaging of the right common carotid artery is within normal limits without evidence of atherosclerotic disease. Rt Internal Carotid Artery: The plaque in the right internal carotid artery appears to be homogenous and smooth. Atherosclerotic changes of the right internal carotid artery without hemodynamically significant Doppler findings. <50% stenosis. Rt External Carotid Artery: Patent right external carotid artery with evidence of atherosclerotic disease present. Rt Vertebral Artery: The right vertebral artery is patent with antegrade flow. Subclavian artery is patent with max PSV 253 cm/s with turbulent waveform. Lt Common Carotid Artery: Duplex imaging of the left common carotid artery is within normal limits without evidence of atherosclerotic disease. Lt Internal Carotid Artery: The plaque in the left internal carotid artery appears to be homogenous and smooth. Atherosclerotic changes of the left internal carotid artery without hemodynamically significant Doppler findings. <50% stenosis. Lt External Carotid Artery: The left external carotid artery is patent without evidence of atherosclerotic plaque. Lt Vertebral Artery: The left vertebral artery is patent with antegrade flow. Comments: Brachial artery systolic blood pressure is 154 on the right, 155 on the left. CONCLUSIONS: 1. The right internal carotid artery disease is consistent with a less than 50% stenosis. 2. The left internal carotid artery disease is consistent with a less than 50% stenosis. 3. Normal, antegrade flow is noted in bilateral vertebral arteries. ATTESTATION: I have reviewed and interpreted the pertinent images and measurements of this study. I attest to the conclusions in the final report that is provided above. Electronically Signed By: Lyndon Flannery MD 11/17/2024 1:01:50 PM SOLID WASTE MANAGEMENT ENGINEER Procedure Note Lyndon Flannery MD - 11/17/2024 Vascular & Vein Surgery [address] [facility] [place] [address] Carotid Duplex Ultrasound Report Patient Name: ARTUR ROMERO L : 1945 (79y 1m) Study Date: 11/15/2024 7:47:06 AM Gender: M Telegrapher Agent: Location: [facility] Ref Provider: THIEN DU Quality: Adequate Order Provider: THIEN DU PROCEDURES: Carotid Report: Carotid duplex examination of the extracranial arterieswas performed using 2D, color and spectral Doppler. INDICATIONS: Rt sided bruit. HISTORY: HLD. CAD. COMPARISONS: No previous exams. MEASUREMENTS: Right Value Left Value Rt Subc PSV 253 cm/sec LT Prox CCA PSV 113 cm/sec RT Prox CCA PSV 96 cm/sec LT Prox CCA EDV 15 cm/sec RT Prox CCA EDV 12 cm/sec LT Distal CCA PSV 56 cm/sec RT Distal CCA PSV 62 cm/sec LT Distal CCA EDV 13 cm/sec RT Distal CCA EDV 12 cm/sec LT Prox ICA PSV 67 cm/sec RT Prox ICA PSV 69 cm/sec LT Prox ICA EDV 11 cm/sec RT Prox ICA EDV 13 cm/sec LT Mid ICA PSV 77 cm/sec RT Mid ICA PSV 72 cm/sec LT Mid ICA EDV 27 cm/sec RT Mid ICA EDV 21 cm/sec LT Distal ICA PSV 76 cm/sec RT Distal ICA PSV 84 cm/sec LT Distal ICA EDV 26 cm/sec RT Distal ICA EDV 22 cm/sec LT ECA Prx PSV 84 cm/sec RT ECA Prx PSV 94 cm/sec LT ICA/CCA 1.20 ratio RT ICA/CCA 1.11 ratio Lt Vert Dst PSV 55 cm/sec Rt Vert Dst PSV 35 cm/sec FINDINGS: Rt Common Carotid Artery: Duplex imaging of the right common carotidartery is within normal limits without evidence of atherosclerotic disease. Rt Internal Carotid Artery: The plaque in the right internal carotidartery appears to be homogenous and smooth. Atherosclerotic changes of the right internalcarotid artery without hemodynamically significant Doppler findings. <50% stenosis. Rt External Carotid Artery: Patent right external carotid artery withevidence of atherosclerotic disease present. Rt Vertebral Artery: The right vertebral artery is patent with antegradeflow. Subclavian artery is patent with max PSV 253 cm/s with turbulent waveform. Lt Common Carotid Artery: Duplex imaging of the left common carotid arteryis within normal limits without evidence of atherosclerotic disease. Lt Internal Carotid Artery: The plaque in the left internal carotid arteryappears to be homogenous and smooth. Atherosclerotic changes of the left internalcarotid artery without hemodynamically significant Doppler findings. <50% stenosis. Lt External Carotid Artery: The left external carotid artery is patentwithout evidence of atherosclerotic plaque. Lt Vertebral Artery: The left vertebral artery is patent with antegradeflow. Comments: Brachial artery systolic blood pressure is 154 on the right, 155on the left. CONCLUSIONS: 1. The right internal carotid artery disease is consistent with a lessthan 50% stenosis. 2. The left internal carotid artery disease is consistent with a less than50% stenosis. 3. Normal, antegrade flow is noted in bilateral vertebral arteries. ATTESTATION: I have reviewed and interpreted the pertinent images and measurements ofthis study. I attest to the conclusions in the final report that is provided above. Electronically Signed By: Lyndon Flannery MD 11/17/2024 1:01:50 PM SOLID WASTE MANAGEMENT ENGINEER Thien Du MD IM US PROCEDURES Final R esult from Last 3 Months Insurance MEDICARE [employer] [facility] MEDICARE COMMERCIAL GENERIC MEDICARE COMMERCIAL GENERIC Care Teams Fiberglass Luggage Molder Relationship Specialty Start Date End Date Anh Jeong MD [address] [place] [id number] PCP - General Family Medicine 01/29/21
--- OUTSIDE RECORDS SUMMARY | 2025-01-12 12:17 | XMS_ITS | Encounter Summary ---
Author Organization [facility] Address [address] [facility] [place] [address] Care Team Providers Care Senior Electronics Technician Name Role Phone Anh Jeong MD Primary Care Provider + Encounter Details Date Type Department Care Team (Late st Contact Info) Description 11/03/[address] [facility] DermPath Lab [address] [place] [phone] Laci Foster Jr., MD [address] [facility] [address] [place] [address] Social History Tobacco Use Types Packs/Day Years Used Date Smoking Tobacco: Never Alcohol Use Standard Drinks/Week Comments Yes 0 (1 standard drink = 0.6 oz pur e alcohol) Sex and Gender Information Value Date Recorded Sex Assigned at Not on file Legal Sex Male 5:23 PM PUBLICATIONS PRODUCTION SUPERVISOR Gender Identity Not on file Sexual Orientation Not on file documented as of this encounter Plan of Treatment Not on file documented as of this encounter Procedures Procedure Name Priority Date/Time Associated Diagnosis Comments DERMATOPATHOLOGY Routine 10/31/2021 12:0 0 AM PUBLICATIONS PRODUCTION SUPERVISOR documented in this encounter Results * DERMATOPATHOLOGY (10/31/2021 12:00 AM PUBLICATIONS PRODUCTION SUPERVISOR) Case Report Dermatopathology Report Case: [id number] Authorizing Provider: Laci Foster Jr., MD Collected: 10/31/2021 12:00 AM Ordering Location: [facility] DermPath Lab Received: 11/03/2021 10:35 AM Pathologist: Citlalli Crandall MD Specimen: Skin, left ventral proximal forearm 2 5:36 PM [facility] DERMATOPATHOLOGY LABORATORY Final Diagnosis Specimen A. 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 Basal Cell Carcinoma vs. Actinic Keratosis vs. Irritated Seborrheic Keratosis. 2 5:36 PM [facility] DERMATOPATHOLOGY [facility]ORAT[facility] Gross Description Specimen A: Received is one formalin filled container labeled with the patient's name and designated left ventral proximal forearm. The specimen consists of a shave biopsy measuring [id number]. Jar 0. 2 5:36 PM [facility] DERMATOPATHOLOGY LABORATORY Microscopic Description Specimen A. SKIN, left ventral proximal forearm: Sections show nests of cells with pale cytoplasm and thin strands of relatively normal keratinocytes intervening. There is overlying parakeratosis. 2 5:36 PM [facility] DERMATOPATHOLOGY LABORATORY Disclaimer An external and internal positive and negative controls are appropriate for the histochemical, immunohistochemical and immunofluorescence stain(s) in this case (if any), except where stated explicitly. The performance characteristics of the stain(s) cited in this report were developed and its performance characteristic determined by the Dermatopathology Laboratory at [facility], directed by Dr. Bianca Crandall. These tests need not be, and therefore are not, approved by the [place] Food and Drug Administration. The tests are used for clinical purposes. Billing Codes Specimen Charges Stain Charges 87464 1 2 5:36 PM [facility] DERMATOPATHOLOGY LABORATORY Embedded Images 2 5:36 PM [facility] DERMATOPATHOLOGY LABORATORY Pathology/Cytolog y TISSUE SPECIMEN FROM SKIN / Unknown 10/31/2021 11/03/2021 10:35 AM [facility] Laci Foster Jr., MD LAB - PATHOLOGY/CYTOLOG Y ORDERABLES Final Result DERMATOPATHOLOGY LABORATORY [facility] - Department of Dermatology [address] [phone] documented in this encounter Visit Diagnoses Not on filedocumented in this encounter Care Teams Senior Electronics Technician Relationship Specialty Start Date End Date Anh Jeong MD [address] [place] [phone] PCP - General 03/26/17 documented as of this encounter
--- OUTSIDE RECORDS SUMMARY | 2025-01-12 12:17 | XMS_ITS | Clinical Summary ---
Author Organization [facility] Address [address] [place] [address] Phone Care Team Providers Care Medical Secretary Receptionist Name Role Phone Anh Thomas MD Primary Care Provider [phone] Orlando Singh MD Unavailable Unavailable Allergies No known active allergies Medications colesevelam (WELCHOL) 625 MG Tablet Take 1,875 mg by mouth 2 times daily. Active finasteride (PROSCAR) 5 MG Tablet Take 5 mg by mouth daily. Active nystatin-triamc inolone (MYCOLOG) 586883-4.1 UNIT/GM-% OintmentIndicat ions:Otitis externa, fungal, left ear [...] topic Insurance MEDICARE COMMERCIAL GENERIC Care Teams Medical Secretary Receptionist Relationship Specialty Start Date End Date Anh Thomas MD [address] [place] [address] PCP - General 02/26/16 Orlando Singh MD [address] [place] [address] Consulting Physician Urology 02/28/16
--- OUTSIDE RECORDS SUMMARY | 2025-01-12 12:17 | XMS_ITS | Encounter Summary ---
Author Organization [facility] Address [address] [facility] [place] [address] Care Team Providers Care Metallurgist Helper Name Role Phone Anh Jeong MD Primary Care Provider + Encounter Details Date Type Department Care Team (Late st Contact Info) Description 02/16/2024 Lab Requisition [facility] - DermPath Lab [address] [facility] [address] [place] [id number] Laci Foster Jr., MD [address] [place] [address] Social History Tobacco Use Types Packs/Day Years Used Date Smoking Tobacco: Never Alcohol Use Standard Drinks/Week Comments Yes 0 (1 standard drink = 0.6 oz pur e alcohol) Sex and Gender Information Value Date Recorded Sex Assigned at Not on file Legal Sex Male 5:23 PM WHAT JOB TITLES MEAN Gender Identity Not on file Sexual Orientation Not on file documented as of this encounter Plan of Treatment Not on file documented as of this encounter Procedures Procedure Name Priority Date/Time Associated Diagnosis Comments DERMATOPATHOLOGY Routine 02/15/2024 3:33 AM CDT documented in this encounter Results * DERMATOPATHOLOGY (02/15/2024 3:33 AM CDT) Case Report Dermatopathology Report Case: [id number] Authorizing Provider: Laci Foster Jr., MD Collected: 02/15/2024 03:33 AM Ordering Location: [facility] - Received: 02/16/2024 02:21 PM DermPath Lab Pathologist: Citlalli Crandall MD Specimen: Skin, right posterior shoulder 3:39 PM CDT DERMATOPATHOLOGY LABORATORY Final Diagnosis Specimen A. SKIN, right posterior shoulder: HYPERPLASTIC (HYPERTROPHIC) ACTINIC KERATOSIS (L57.0) 3:39 PM T DERMATOPATHOLOGY LABORATORY Clinical History [...] lower half of the epidermis. 3:39 PM T DERMATOPATHOLOGY LABORATORY Disclaimer An external and internal positive and negative controls are appropriate for the histochemical, immunohistochemical and immunofluorescence stain(s) in this case (if any), except where stated explicitly. The performance characteristics of the stain(s) cited in this report were developed and its performance characteristic determined by the Dermatopathology Laboratory at [facility], directed by Dr. Bianca Crandall. These tests need not be, and therefore are not, approved by the [place] Food and Drug Administration. The tests are used for clinical purposes. Billing Codes Specimen Charges Stain Charges 36189 1 4 3:39 PM CDT DERMATOPATHOLOGY LABORATORY Embedded Images 3:39 PM CDT DERMATOPATHOLOGY LABORATORY Pathology/Cytolo gy TISSUE SPECIMEN FROM SKIN / Unknown 02/15/2024 3:33 AM CDT 02/16/2024 2:21 PM CDT us Laci Foster Jr., MD LAB - PATHOLOGY/CYTOLOG Y ORDERABLES Final Result DERMATOPATHOLOGY LABORATORY [facility] - Department of [facility] [address] [facility] [address] [phone] documented in this encounter Visit Diagnoses Not on filedocumented in this encounter Care Teams Metallurgist Helper Relationship Specialty Start Date End Date Anh Jeong MD [address] [place] [phone] PCP - General 03/26/17 documented as of this encounter
--- OUTSIDE RECORDS SUMMARY | 2025-01-12 12:17 | XMS_ITS ---
Care Plan - [facility] Created on: January 12, 2025 ROBE LAI : 1945 Sex: Male Author Organization [facility] Address [address] [place] [address] Phone Care Team Providers Care Grinder Gear Name Role Phone HIRO HAINES MD Primary Care Provider [phone]
--- OUTSIDE RECORDS SUMMARY | 2025-01-12 12:17 | XMS_ITS | Clinical Summary ---
Author Organization [facility] Address [address] [facility] [place] [address] Care Team Providers Care Gold Leaf Gilder Name Role Phone Anh Jeong MD Primary Care Provider + Source Comments [facility],non-owned Affiliates and Associated Physician Practices is amultiple site organization consisting of ambulatory clinics and hospital sitesin [place], [place], [place] and [place]. This disclosure is being madepursuant to the Care Everywhere program and may not contain all information available regarding this patient. Last updated 18.[facility] Medications * Be aware that medications may not be up to date on this document. Alwaysverify current medications with the patient. colesevelam (WELCHOL) 625 MG tablet Take 1,875 [...] on file Legal Sex Male 5:23 PM LAB SUPPORT SERVICE TECH Gender Identity Not on file Sexual Orientation [...] VACCINE (1 - 2023-2 5 season) 2024 DEPRESSION SCREENING 09/20/2024 INFLUENZA VACCINE (Season Ended) 2025 HEPATITIS B VACCINE Aged Out No longe r eligible based on patient's age to complete this topic HIB VACCINE Aged Out No longer eligi ble based on patient's age to complete this topic HPV VACCINE Aged Out No longer eligi ble based on patient's age to complete this topic MENINGOCOCCAL (Group B) VACC INE SHARED DECISION-MAKING Aged Out No longer eligibl e based on patient's age to complete this topic MENINGOCOCCAL GROUPS A/C/Y/W VACCINE Aged Out No longer eligible b ased on patient's age to complete this topic Insurance MEDICARE MEDICARE MEDICARE SUPPLEMENT PAYOR GENERIC Care Teams Gold Leaf Gilder Relationship Specialty Start Date End Date Anh Jeong MD [address] [place] [phone] PCP - General 03/26/17
--- OUTSIDE RECORDS SUMMARY | 2025-01-12 12:18 | XMS_ITS | Clinical Summary ---
Author Organization [facility] Address [address] [place] [address] Phone Care Team Providers Care Parking Supervisor Name Role Phone HIRO HAINES MD Primary Care Provider Reason for Visit and Chief Complaint The Chief Complaint is: 6 month check up, has a trigger finger on his right hand, has had carpal tunnel surgery on that side twice, had a test done at [facility] that he would like to discuss Problems Includes: Problems addressed during this encounter and other active Problems Current Visit Onset Date Resolved Date Provider Conditio n Status Actinic Keratosis 12/30/2011 HIRO HAINES MD Active Last Documented On 2 3:40PM ; [facility] Benign Prostatic Hypertrophy 12/30/2011 HIRO HAINES MD Active Last Documented On 2 11:16PM ; [facility] Hyperlipidemia 01/16/2009 HIRO HAINES MD Active Last Documented On 0 2:41PM ; [facility] Past Visits Onset Date Resolved Date Provider Condition Status Trigger Finger of Right Middle Finger 05/27/2023 JOSE RDZ DO Active Last Documented On 3 2:33PM ; [facility] Tenosynovitis De Quervain's 04/30/2022 MERCEDES Archer Active Last Documented On 2 9:27AM ; [facility] Note: left Carpal Tunnel Syndrome Right 12/25/2021 MERCEDES Archer Active Last Documented On 2 9:53AM ; [facility] Note: right carpal tunnel revision on 08/[address] 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 TONO ONEIL MD Active Last Documented On 1 3:46PM ; [facility] Tingling of the Hands 12/06/2019 HIRO DIAZ MD Active Last Documented On 09/16/2021 1:52PM ; [facility] Note: Unchanged Sciatica 09/19/2019 OLGA LIDIA RILEY PA-C Act david Last Documented On 09/19/2019 3:30PM ; [facility] Note: --has [...] - Last Documented On 04/11/2023 5:52PM ; [facility] Pending Tests Order Diagnosis Results Due Ordering P [place]ah Therapy - Physical Therapy Physical Therapy Pain in right wrist 10/05/23 HIRO NGUYEN MD Last Documented On 4 4:06PM ; [facility] Therapy - Occupational Therapy Occupational Therapy Pain in right wrist 10/05/23 HIRO HAINES MD Last Documented On 4 4:06PM ; [facility] LIPID PANEL 04/02/24 HIRO MATTHEWS MD Last Documented On 4 8:04AM ; [facility] Lab CMP 04/02/24 HIRO DIAZ MD Last Documented On 4 8:04AM ; [facility] Referrals To Diagnosis Harnessmaker Apprentice THIEN LOZANO MD Athncl heart d isease of tolowa dee-ni' coronary artery w/o ang pctrs Note: Referred to cardiology Dr. Lozano for elevated calcium score and positive family history. 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] Coronary artery disease - Last Documented On 04/11/2023 5:52PM ; [facility] - [N40.0 - Benign prostatic hyperplasia without lower urinary tract symptoms] Benign prostatic hypertrophy - Last Documented On 04/11/2023 5:52PM ; [facility] - [E78.2 - Mixed hyperlipidemia] Hyperlipidemia - Last Documented On 04/11/2023 5:52PM ; [facility] - [L57.0 - Actinic keratosis] Actinic keratosis - Last Documented On 04/11/2023 5:52PM ; [facility] - [M65.30 - Trigger finger, unspecified finger] Right trigger finger (acquired) - Last Documented On 04/11/2023 5:52PM ; [facility] Instructions Includes: Instructions from this encounter Education and Decision Aids were provided during visit for: Patient education about home safety plans for prevention of falls : Patient completed a Fall risk assesment and was provided fall risk education materials Last Documented On 3 8:11AM ; [facility] Medical Equipment - Implanted Devices Includes: Current Devices No Medical Equipment Recorded Medications Includes: Medications discussed during this encounter and other current Medications New / Renewed during this visit HIRO HAINES MD on 04/06/2023 Rosuvastatin Calcium 10 MG Oral Tablet Provider: HIRO Caro 90 day supply: 90 tablet, 3 refills Diagnosis: Mixed hyperlipidemia TAKE 1 TABLET BY MOUTH AT BEDTIME Pharmacy: [facility] - [address] [place] [address], [phone] - Last Documented On 3 8:50AM By HIRO HAINES MD ; [facility] Current Medications (continue as prescribed) Tadalafil 5 MG Oral Tablet 10/05/2023 Provider: Suzi HAINES MD Diagnosis: One tablet daily or can take 2-4 tablets (10-20mg) every 72 hours prn sexual activity Last Documented On 4 9:30AM By HIRO HAINES MD ; [facility] EQ Aspirin Adult Low Dose 81 MG Oral Tablet Delayed Release 07/14/2023 Provider: THIEN LOZANO MD Diagnosis: Last Documented On 10/05/2023 8:14AM By Melany HENRIQUEZ ; [facility] Melatonin 5 MG Oral Capsule 10/06/2022 Provider: Diagnosis: Last Documented On 10/06/2022 10:00AM By Melany HENRIQUEZ ; [facility] Tamsulosin HCl 0.4MG Oral Capsule 04/05/2019 Provide r: Diagnosis: Last Documented On 9 9:16AM By HIRO HAINES MD ; [facility] Medications Administered Includes: Administered Medications from this [...] 96 Last Documented: On 04/06/2023 8:19AM ; [facility] Results Includes: Results discussed during this encounter [...] twice. He had a test done at [facility] that he would like to discuss today. 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 Last Documented On 3 8:10AM ; [facility] Smoking Status Unknown Procedures and Surgical History Includes: Procedures from this encounter Procedures Code Diagnosis Performing Provider Service L ocation Service Date education and instructions Last Documented On 3 8:56AM ; [facility] explanation of plan : patien t/guardian states understanding of and agreement to treatment options and plan Last Documented On 3 8:56AM ; [facility] medication list reviewed Last Documented On 3 8:56AM ; [facility] use of tobacco assessment performed 1000F Last Documented On 3 8:11AM ; [facility] standardized depression screening: negative for symptoms 3351F Last Documented On 3 8:11AM ; [facility] screening for adult depressi on: impression and score not recorded contraindicated Last Documented On 3 8:11AM ; [facility] screening for adult depression: impressi on and score 0 Last Documented On 3 8:11AM ; [facility] Reviewed & agreed to staff entries. Last Documented On 3 8:56AM ; [facility] Clinical summary provided to patient Last Documented On 3 8:56AM ; [facility] reviewed laboratory-based chemistry Last Documented On 3 8:35AM ; [facility] [place] heart disease risk assessment 22.8 Last Documented On 3 8:38AM ; [facility] Surgical History Last Updated History of appendectomy AGE 13 ~eyelid lift faustina 3-20 ~RT carpal tunnel 06/2020 Dr. Garcia. ~LT carpal tunnel 01/2020 Dr. Garcia. ~second right carpal tunnel surgery 5-22 Dr Rdz 10/06/2022 Last Documented On 3 8:10AM ; [facility] Prior surgery 12/25/2021 Last Documented On 3 8:10AM ; [facility] Medical History Includes: Medical History addressed during this encounter Description Last Updated No recent change in medical history 10/21 Last Documented On 3 8:10AM ; [facility] Please list all surgeries Carpal tunnel . 12/10/2020 Last Documented On 3 8:10AM ; [facility] History of arthritis ~Benign prostatic h ypertrophy 07/26/2020 Last Documented On 3 8:10AM ; [facility] History of hyperlipidemia 07/26/2020 Last Documented On 3 8:10AM ; [facility] Family History Includes: Family History addressed during this encounter Description Last Updated Paternal history of stroke/paralysis Last Documented On 3 8:10AM ; [facility] Family history of high cholesterol 12/03 Last Documented On 3 8:10AM ; [facility] Family history unchanged 10/15/2017 Last Documented On 3 8:10AM ; [facility] Review of Systems Includes: Review [...] Active Last Documented On 4 2:57PM ; [facility] Encounters Encounter Provider Location Date Check-In Time Check-Out Time Diagnosis CHECK UP HIRO HAINES MD [facility] 04/06/20 23 8:07AM 8:59AM Hyperlipidemi a,Benign Prostatic Hypertrophy,A ctinic Keratosis,Ten osynovitis - Trigger Finger Right (Acquired),Co ronary Artery Disease Insurance Includes: Active Insurance Policies Plan Name Member ID Group # Subscriber Relationship Effect david Dates 1 - MEDICARE PART A CLAIMS/NGS [id number] ARTUR Brewster JOELLE Edinson 08/20/2011 - Unknown 2 - [employer] MEDICARE SUPPLEMENT [id number] ARTUR Neves Clinical Notes Includes: Clinical Notes from this encounter * Progress note Date Encounter Last Documented by 04/06/2023 CHECK UP Last documented on 04/11/2023; 5:52 PM, HIRO HAINES MD; [facility] Active Problems & Conditions - [...] side twice, had a test done at [facility] that he would like to discuss. History of Present Illness ARTUR ROMERO is a 77 year old [...] twice. He had a test done at [facility] that he would like to discuss today. 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 Functional: [PHQ-2] Patient Health Questionnaire 2 item [...] Reviewed laboratory-based chemistry. Laboratory Studies: Cardiac Evaluation: [place] heart disease risk assessment 22.8. 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 Lozano for [...]
--- OUTSIDE RECORDS SUMMARY | 2025-01-12 12:18 | XMS_ITS | Encounter Summary ---
Author Organization [facility] Address [address] [place] [id number] Care Team Providers Care Meter Tester Polyphase Name Role Phone Anh Jeong MD Primary Care Provider Encounter Details Date Type Department Care Team (Late st Contact Info) Description 11/17/2024 Results Follow-Up [facility] Cardiology at [address] [place] [address] Kayden Lozano MD [address] [address] Social History Tobacco Use Types Packs/Day Years Used Date Smoking Tobacco: Never Cigarettes Passive Smoke Exposure: Past Smokeless Tobacco: Never AUDIT-C Answer Date Recorded Q1: How often [...] on file Legal Sex Male 8:23 AM 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
--- OUTSIDE RECORDS SUMMARY | 2025-01-12 12:18 | XMS_ITS | Referral Summary ---
Author Organization [place] [id number] [facility] Address [address] [place] [address] Care Team Providers Care Pick And Shovel Man Name Role Phone Anh Jeong MD Primary Care Provider Encounters Date Type Department Care Team Description 11/17/2024 Results Follow-Up [facility] Cardiology at [address] [place] [phone] Thien Du MD 11/15/2024 8:00 AM COMPUTER SYSTEMS ARCHITECT Ancillary Procedure [facility] Vascular and Vein Surgery at [address] [place] [phone] Right carotid bruit 11/14/2024 2:45 PM COMPUTER SYSTEMS ARCHITECT Office Visit [facility] Cardiology at [address] [place] [phone] Thien Du MD RBBB (Primary Dx); Hyperlipidemia LDL goal <70; Elevated coronary artery calcium score; Atherosclerosis of ugash[place] coronary artery of ugash[place] heart without angina pectoris; Family history of coronary artery disease; Right carotid bruit 11/13/2024 Orders Only [facility] Cardiology [address] [facility] [address] [place] [address] ProviderMargarita MD from Last 3 Months Allergies No known active allergies Medications tamsulosin (FLOMAX) 0.4 mg extended release capsule daily 6 Active aspirin 81 mg enteric coated tabletIndicatio ns:Atherosclero sis of ugash[place] coronary artery of [place] heart without angina pectoris,Elevat ed coronary artery calcium score Take 1 tablet (81 mg total) by mouth daily 30 tablet 11 3 11/14/19 26 Active finasteride (PROSCAR) 5 mg tablet Take 1 tablet (5 mg total) by mouth daily 5 Active rosuvastatin (CRESTOR) 20 mg tabletIndicatio ns:Atherosclero sis of [place] coronary artery of [place] heart without angina pectoris,Elevat ed coronary artery calcium score,Hyperlipi demia LDL goal <70 Take 1 tablet by mouth once daily 90 tablet 3 5 Active rosuvastatin (CRESTOR) 20 mg tabletIndicatio ns:Atherosclero sis of ug[place] coronary artery of [place] heart without angina pectoris,Elevat ed coronary artery calcium score,Hyperlipi demia LDL goal <70 Take 1 tablet (20 mg total) by mouth daily 90 tablet 3 3 12/29/19 25 Discontinued Active Problems Problem Noted Date Diagnosed Date Right carotid bruit 11/14/2024 RBBB 03/31/2024 Erectile dysfunction 09/23/2023 Elevated coronary artery calcium score 3 Atherosclerosis of ug[place] co ronary artery of ugash[place] heart without angina pectoris 06/08/2023 Family history [...] on file Legal Sex Male 8:23 AM COMPUTER SYSTEMS ARCHITECT Gender Identity Male 02/15/2021 10:13 AM CDT Sexual Orientation Straight 02/15/2021 10 :14 AM CDT Last Filed Vital Signs Vital Sign Reading Time Taken Comments Blood Pressure 126/76 11/14/2024 2:45 PM COMPUTER SYSTEMS ARCHITECT Pulse 85 11/14/2024 2:45 PM COMPUTER SYSTEMS ARCHITECT Temperature - - Respiratory Rate - - Oxygen Saturation 96% 11/14/2024 2:45 PM COMPUTER SYSTEMS ARCHITECT Inhaled Oxygen Concentration - - Weight 94.3 kg (208 lb) 11/14/2024 2:45 PM COMPUTER SYSTEMS ARCHITECT Height 182.9 cm (6') 11/14/2024 2:45 PM COMPUTER SYSTEMS ARCHITECT Body Mass Index 28.21 11/14/2024 2:45 PM COMPUTER SYSTEMS ARCHITECT Plan of Treatment Not on file Procedures Procedure Name Priority Date/Time Associated Diagnosis Comments US CAROTIDS DUPLEX BILATERAL Schedule Routine, Read Routine (OP Routine) 11/15/2024 8:18 AM COMPUTER SYSTEMS ARCHITECT Right carotid bruit from Last 3 Months Results * US Carotids Duplex Bilateral (11/15/2024 8:18 AM COMPUTER SYSTEMS ARCHITECT) Anatomical Region Laterality Modality Vascular Bilateral Ultrasound 11/15/2024 7:47 AM COMPUTER SYSTEMS ARCHITECT Narrative 11/17/2024 2:01 PM COMPUTER SYSTEMS ARCHITECT Vascular & Vein Surgery [address] [place] [address] Carotid Duplex Ultrasound Report Patient Name: ROBE ROMERO L : 1945 (79y 1m) Study Date: 11/15/2024 7:47:06 AM Gender: M Er Manager: Location: [facility] Ref Provider: THIEN DU Quality: [...] By: Lyndon Flannery MD 11/17/2024 1:01:50 PM COMPUTER SYSTEMS ARCHITECT Procedure Note Lyndon Flannery MD - 11/17/2024 Vascular & Vein Surgery [address] [place] [address]. [place] [address] Carotid Duplex Ultrasound Report Patient Name: ROBE ROMERO L : 1945 (79y 1m) Study Date: 11/15/2024 7:47:06 AM Gender: M Er Manager: Location: [facility] Ref Provider: THIEN DU Quality: Adequate Order [...] By: Lyndon Flannery MD 11/17/2024 1:01:50 PM COMPUTER SYSTEMS ARCHITECT Thien Du MD IM US PROCEDURES Final R esult from Last 3 Months Insurance MEDICARE COMMERCIAL GENERIC MEDICARE COMMERCIAL GENERIC MEDICARE COMMERCIAL GENERIC Care Teams Pick And Shovel Man Relationship Specialty Start Date End Date Anh Jeong MD [address] [place] [phone] PCP - General Family Medicine 01/29/21
--- OUTSIDE RECORDS SUMMARY | 2025-01-12 12:18 | XMS_ITS | Clinical Summary ---
Author Organization [facility] Address [address] [place] [address] Phone Care Team Providers Care Coil Rewind Machine Operator Name Role Phone HIRO HAINES [...] Active Last Documented On 0 2:41PM ; [facility] Past Visits Onset Date Resolved Date Provider Condition Status Trigger Finger of Right Middle Finger 05/27/2023 JOSE RDZ DO Active Last Documented On 3 2:33PM ; [facility] Tenosynovitis De Quervain's 04/30/2022 MERCEDES Archer Active Last Documented On 2 9:27AM ; [facility] Note: left Carpal Tunnel Syndrome Right 12/25/2021 MERCEDES Archer Active Last Documented On 2 9:53AM ; [facility] Note: right carpal tunnel revision on 08/[address] 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 TONO ONEIL MD Active Last Documented On 1 3:46PM ; [facility] Tingling of the Hands 12/06/2019 HIRO DIAZ MD Active Last Documented On 09/16/2021 1:52PM ; [facility] Note: Unchanged Sciatica 09/19/2019 OLGA LIDIA RILEY PA-C Act david Last Documented On 09/19/2019 3:30PM ; [facility] Note: --has done bee venom therapy which has helped Actinic Keratosis 12/30/2011 HIRO HAINES MD Active Last Documented On 2 3:40PM ; [facility] Benign Prostatic Hypertrophy 12/30/2011 HIRO HAINES MD Active Last Documented On 2 11:16PM ; [facility] Plan of Treatment ask derm [...] - Last Documented On 10/06/2022 11:47PM ; [facility] Pending Tests Order Diagnosis Results Due Ordering P rovider Therapy - Physical Therapy Physical Therapy Pain in right wrist 10/05/23 HIRO NGUYEN MD Last Documented On 4 4:06PM ; [facility] Therapy - Occupational Therapy Occupational Therapy Pain in right wrist 10/05/23 HIRO HAINES MD Last Documented On 4 4:06PM ; [facility] Lab LIPID PANEL 04/02/24 HIRO MATTHEWS MD Last Documented On 4 8:04AM ; [facility] Lab CMP 04/02/24 HIRO DIAZ MD Last Documented On 4 8:04AM ; [facility] Education and Decision Aids were provided during visit for: Patient education about home safety plans for prevention of falls : Patient completed a Fall risk assesment and was provided fall risk education materials Last Documented On 3 9:55AM ; [facility] Assessments Includes: Assessments from this encounter Findings - [E78.2 - Mixed hyperlipidemia] Hyperlipidemia - Last Documented On 10/06/2022 11:47PM ; [facility] - [M25.512 - Pain in left shoulder] Arthralgia of left shoulder region - Last Documented On 10/06/2022 11:47PM ; [facility] - [M25.561 - Pain in right knee] RIGHT KNEE PAIN - Last Documented On 10/06/2022 11:47PM ; [facility] Instructions Includes: Instructions from this encounter Education and Decision Aids were provided during visit for: Patient education about home safety plans for prevention of falls : Patient completed a Fall risk assesment and was provided fall risk education materials Last Documented On 3 9:55AM ; [facility] Medical Equipment - Implanted Devices Includes: [...] 4 9:30AM By HIRO HAINES MD ; [facility] EQ Aspirin Adult Low Dose 81 MG Oral Tablet Delayed Release 07/14/2023 Provider: THIEN DU MD Diagnosis: Last Documented On 10/05/2023 8:14AM By Melany HENRIQUEZ ; [facility] Rosuvastatin Calcium 10 MG O ral Tablet 04/06/2023 Provider: HIRO Caro Diagnosis: Mixed hyperlipid emia TAKE 1 TABLET BY MOUTH AT BEDTIME Last Documented On 3 8:50AM By HIRO HAINES MD ; [facility] Melatonin 5 MG Oral Capsule 10/06/2022 Provider: Diagnosis: Last Documented On 10/06/2022 10:00AM By Melany HENRIQUEZ ; [facility] Tamsulosin HCl 0.4MG Oral Capsule 04/05/2019 [...] Last Documented: On 10/06/2022 10:05A M ; [facility] Results Includes: Results discussed [...] 01/23/2022 Last Documented On 3 9:54AM ; [facility] [PHQ-2] Patient Health Questionnaire 2 i tem total score: 2 (Scale: 0-6) 12/10/2020 Last Documented On 3 9:54AM ; [facility] Alcohol use couple times a week; 021 Last Documented On 3 9:54AM ; 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 explanation of plan : patien t/guardian states understanding of and agreement to treatment options and plan Last Documented On 3 10:35AM ; [facility] medication list reviewed Last Documented On 3 10:35AM ; [facility] use of tobacco assessment performed 1000F Last Documented On 3 9:55AM ; [facility] Reviewed & agreed to staff entries. Last Documented On 3 10:35AM ; [facility] Clinical summary provided to patient Last Documented On 3 10:35AM ; [facility] Surgical History Last Updated History of appendectomy AGE 13 ~eyelid lift faustina 3-20 ~RT carpal tunnel 06/2020 Dr. Garcia. ~LT carpal tunnel 01/2020 Dr. Garcia. ~second right carpal tunnel surgery - Dr Rdz 10/06/2022 Last Documented On 3 11:47PM ; [facility] Prior surgery 12/25/2021 Last Documented On 3 9:54AM ; [facility] Medical History Includes: Medical History addressed during this encounter Description Last Updated Please list all surgeries Carpal tunnel . 12/10/2020 Last Documented On 3 9:54AM ; [facility] History of arthritis ~Benign prostatic h ypertrophy 07/26/2020 Last Documented On 3 9:54AM ; [facility] History of hyperlipidemia 07/26/2020 Last Documented On 3 9:54AM ; [facility] Family History Includes: Family History addressed during this encounter Description Last Updated Paternal history of stroke/paralysis Last Documented On 3 9:54AM ; [facility] Family history of high cholesterol 12/03 Last Documented On 3 9:54AM ; [facility] Review of Systems Includes: Review of [...] Active Last Documented On 4 2:57PM ; [facility] Encounters Encounter Provider Location Date Check-In Time Check-Out Time Diagnosis CHECK [facility] 10/06/19 23 9:48AM 10:43AM Arthralgia - Shoulder Region Left,Right Knee Pain,Hyperlipi demia Insurance Includes: Active Insurance Policies Plan Name Member ID Group # Subscriber Relationship Effect david Dates 1 - MEDICARE PART A CLAIMS/NGS [id number] ARTUR Neves 08/20/2011 - Unknown 2 - [employer] MEDICARE SUPPLEMENT [id number] ARTUR Neves Clinical Notes Includes: Clinical Notes from this encounter No Clinical Notes Recorded
--- OUTSIDE RECORDS SUMMARY | 2025-01-12 12:18 | XMS_ITS | Clinical Summary ---
Author Organization [facility] Address [address] [place] [address] Phone Care Team Providers Care Betting Clerk Name Role Phone HIRO HAINES MD Primary Care Provider [phone] Reason for Visit and Chief Complaint visit for: right hand pain - The Chief Complaint is: C/O RT MIDDLE FINGER TRIGGERING, STATES IT IS STUCK Problems Includes: Problems addressed during this encounter and other active Problems Current Visit Onset Date Resolved Date Provider Conditio n Status Trigger Finger of Right Middle Finger 05/27/2023 JOSE RDZ DO Active Last Documented On 3 2:33PM ; [facility] Past Visits Onset Date Resolved Date Provider Condition Status Tenosynovitis De Quervain's 04/30/2022 MERCEDES Archer Active Last Documented On 04/30/2022 9:27AM ; [facility] Note: left Carpal Tunnel Syndrome Right 12/25/2021 MERCEDES Archer Active Last Documented On 02/09/2022 9:53AM ; [facility] Note: right carpal tunnel revision on 08/[address] 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 TONO ONEIL MD Active Last Documented On 3:46PM ; [facility] Tingling of the Hands 12/06/2019 HIRO DIAZ MD Active Last Documented On 09/16/2021 1:52PM ; [facility] Note: Unchanged Sciatica 09/19/2019 OLGA LIDIA RILEY PA-C Act david Last Documented On 09/19/2019 3:30PM ; [facility] Note: --has done bee venom therapy which has helped Actinic Keratosis 12/30/2011 HIRO HAINES MD Active Last Documented On 2 3:40PM ; [facility] Benign Prostatic Hypertrophy 12/30/2011 HIRO HAINES MD Active Last Documented On 2 11:16PM ; [facility] Hyperlipidemia 01/16/2009 HIRO HAINES MD Active Last Documented On 0 2:41PM ; [facility] Plan of Treatment We discussed conservative [...] - Last Documented On 01/27/2024 3:25PM ; [facility] Assessments Includes: Assessments from this encounter Findings - [M65.331 - Trigger finger, right middle finger] Trigger finger of the right middle finger - Last Documented On 01/27/2024 3:25PM ; [facility] Medical Equipment - Implanted Devices Includes: [...] 4 9:30AM By HIRO HAINES MD ; [facility] EQ Aspirin Adult Low Dose 81 MG Oral Tablet Delayed Release 07/14/2023 Provider: THIEN DU MD Diagnosis: Last Documented On 10/05/2023 8:14AM By Melany HENRIQUEZ ; [facility] Rosuvastatin Calcium 10 MG O ral Tablet 04/06/2023 Provider: HIRO Caro Diagnosis: Mixed hyperlipid emia TAKE 1 TABLET BY MOUTH AT BEDTIME Last Documented On 3 8:50AM By HIRO HAINES MD ; [facility] Melatonin 5 MG Oral Capsule 10/06/2022 Provider: Diagnosis: Last Documented On 10/06/2022 10:00AM By Melany HENRIQUEZ ; [facility] Tamsulosin HCl 0.4MG Oral Capsule 04/05/2019 Provide r: Diagnosis: Last Documented On 9 9:16AM By HIRO HAINES MD ; [facility] Medications Administered Includes: Administered Medications from this encounter No Administered Medications Recorded Vital Signs Includes: Vital Signs from this encounter Vital Name 01/27/2024 03:06P Blood Pressure Sitting (mmHg) 146/82 Height (in) 73 Last Documented: On 01/27/2024 3:11PM ; [facility] Results Includes: Results discussed during this [...] 10/05/2023 Last Documented On 4 3:04PM ; [facility] 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 None 10/05/2023 Last Documented On 4 3:04PM ; [facility] Tobacco non-user 02/28/2022 Last Documented On 4 3:04PM ; [facility] Former smoker 01/23/2022 Last Documented On 4 3:04PM ; [facility] Current nonsmoker 04/26/2021 Last Documented On 4 3:04PM ; [facility] [PHQ-2] Patient Health Questionnaire 2 i tem total score: 2 (Scale: 0-6) 12/10/2020 Last Documented On 4 3:04PM ; [facility] Difficulty walking 12/10/2020 Last Documented On 4 3:04PM ; [facility] No consumption of alcohol 12/10/2020 Last Documented On 4 3:04PM ; [facility] Not using drugs 12/10/2020 Last Documented On 4 3:04PM ; [facility] Alcohol use couple times a week; 021 Last Documented On 4 3:04PM ; [facility] Able to walk 11/04/2020 Last Documented On 4 3:04PM ; [facility] Non-smoker 07/26/2020 Last Documented On 4 3:04PM ; [facility] Currently APOLONIA (1964) ~NEFTALI 1 968 ~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 04/05/2019 Last Documented On 4 3:04PM ; [facility] No tobacco use 04/05/2019 Last Documented On 4 3:04PM ; [facility] Smoking status : Never smoker 10/25/2018 Last Documented On 4 3:04PM ; [facility] Procedures and Surgical History Includes: Procedures from this encounter Procedures Code Diagnosis Performing Provider Service Location Service Date INJECTION(S); SINGLE TENDON SHEATH, LIGAMENT, APONEUROSIS (RIGHT HAND, THIRD DIGIT) Trigger finger, right middle finger MERCEDES Archer [facility] 01/27/2024 Last Documented On 4 3:17PM ; [facility] FACILITY FEE (Signi/Sep Eval & Man) G0463 Trigger finger, right middle finger MERCEDES Archer [facility] 01/27/2024 Last Documented On 4 3:17PM ; [facility] INJECTION(S); SINGLE TENDON SHEATH, LIGAMENT, APONEUROSIS (RIGHT HAND, THIRD DIGIT) 31687 Trigger finger, right middle finger MERCEDES Archer [facility] 01/27/2024 Last Documented On 4 3:17PM ; [facility] KENALOG INJECTION 10MG [id number] Trigger finger, right middle finger MERCEDES Archer [facility] 01/27/2024 Last Documented On 4 3:17PM ; [facility] use of tobacco assessment performed 1000F Last Documented On 4 3:24PM ; [facility] review of medications documented 1160F Last Documented On 4 3:24PM ; [facility] encouragement to exercise Last Documented On 4 3:24PM ; [facility] Informed consent obtained Ri sks and [...] scribe Last Documented On 4 3:21PM ; [facility] Corticosteroid Injection: Ri sk and benefits [...] [id number] Last Documented On 4 3:21PM ; [facility] Surgical History Last Updated History of appendectomy AGE 13 ~eyelid lift faustina 3-20 ~RT carpal tunnel 06/2020 Dr. Garcia. ~LT carpal tunnel 01/2020 Dr. Garcia. ~second right carpal tunnel surgery - Dr Rdz 10/06/2022 Last Documented On 4 3:04PM ; [facility] Prior surgery 12/25/2021 Last Documented On 4 3:04PM ; [facility] No Pacemaker 12/10/2020 Last Documented On 4 3:04PM ; [facility] Medical History Includes: Medical History addressed during this encounter Description Last Updated No fall 02/28/2022 Last Documented On 4 3:04PM ; [facility] No recent change in medical history 10/21 Last Documented On 4 3:04PM ; [facility] No Pain Pump 12/10/2020 Last Documented On 4 3:04PM ; [facility] No Spinal cord stimulator 12/10/2020 Last Documented On 4 3:04PM ; [facility] Please list all surgeries Carpal tunnel . 12/10/2020 Last Documented On 4 3:04PM ; [facility] No exposure to a contagious disease 07/22 Last Documented On 4 3:04PM ; [facility] No exposure to a viral disease 0 Last Documented On 4 3:04PM ; [facility] Not taking OTC medications 08/13/2020 Last Documented On 4 3:04PM ; [facility] History of arthritis ~Benign prostatic h ypertrophy 07/26/2020 Last Documented On 4 3:04PM ; [facility] History of hyperlipidemia 07/26/2020 Last Documented On 4 3:04PM ; [facility] Denies a fear of falling. 07/26/2020 Last Documented On 4 3:04PM ; [facility] Has had no fall in the last 12 months. 1 09/25/2019 Last Documented On 4 3:04PM ; [facility] Family History Includes: Family History addressed during this encounter Description Last Updated Paternal history of stroke/paralysis Last Documented On 4 3:04PM ; [facility] Family history of high cholesterol 12/03 Last Documented On 4 3:04PM ; [facility] Family history unchanged 10/15/2017 Last Documented On 4 3:04PM ; [facility] Review of Systems Includes: Review of [...] Active Last Documented On 4 2:57PM ; [facility] Encounters Encounter Provider Location Date Check-In Time Check-Out Time Diagnosis ORTHO ESTABLISHED PATIENT MERCEDES Archer [facility] 01/27/20 24 2:51PM 3:22PM Trigger Finger of Right Middle Finger Insurance Includes: Active Insurance Policies Plan Name Member ID Group # Subscriber Relationship Effect david Dates 1 - MEDICARE PART A CLAIMS/NGS [id number] ARTUR ALI Self 08/20/2011 - Unknown 2 - [employer] MEDICARE SUPPLEMENT [id number] ARTUR LAI Self Clinical Notes Includes: Clinical Notes from this encounter * Progress note Date Encounter Last Documented by 01/27/2024 ORTHO ESTABLISHED PATIENT Last d ocumented on 01/27/2024; 3:25 PM, MERCEDES Archer; [facility] Active Problems & Conditions - L57.0 [...] Currently APOLONIA (1963) NEFTALI 1967 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 Functional: Able to walk. [PHQ-2] Patient [...]
--- OUTSIDE RECORDS SUMMARY | 2025-01-12 12:18 | XMS_ITS | Clinical Summary ---
Author Organization [facility] Address [address] [place] [phone] Care Team Providers Care Terra Cotta Mold Maker Name Role Phone Unavailable Primary Care Provider [...] (1 - Tdap) 1964 PNEUMOCOCCAL VACCINE 50+ YEARS (1 of 1 - PCV) 09/17/19 96 ZOSTER VACCINE (1 of 2) 1996 RSV VACCINE (60+ or ) (1 - 1-dose 75+ series) 2021 INFLUENZA VACCINE (#1) 2024 Insurance MEDICARE PART A AND B
--- OUTSIDE RECORDS SUMMARY | 2025-01-12 12:18 | XMS_ITS | Clinical Summary ---
Author Organization [facility] Address [address] [place] [address] Phone Care Team Providers Care Insurance Risk Manager Name Role Phone HIRO HAINES MD Primary Care Provider [phone] Reason for Visit and Chief Complaint The [...] Active Last Documented On 3 2:33PM ; [facility] Tingling of the Hands 12/06/2019 HIRO DIAZ MD Active Last Documented On 1 1:52PM ; [facility] Note: Unchanged Benign Prostatic Hypertrophy 12/30/2011 HIRO HAINES MD Active Last Documented On 2 11:16PM ; [facility] Hyperlipidemia 01/16/2009 HIRO HAINES MD Active Last Documented On 0 2:41PM ; [facility] Past Visits Onset Date Resolved Date Provider Condition Status Tenosynovitis De Quervain's 04/30/2022 MERCEDES Archer Active Last Documented On 04/30/2022 9:27AM ; [facility] Note: left Carpal Tunnel Syndrome Right 12/25/2021 MERCEDES Archer Active Last Documented On 02/09/2022 9:53AM ; [facility] Note: right carpal tunnel revision on 08/[address] 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 TONO ONEIL MD Active Last Documented On 1 3:46PM ; [facility] Sciatica 09/19/2019 OLGA LIDIA RILEY PA-C Act david Last Documented On 09/19/2019 3:30PM ; [facility] Note: --has done bee venom [...] - Last Documented On 10/05/2023 4:06PM ; [facility] Pending Tests Order Diagnosis Results Due Ordering P rovider Therapy - Physical Therapy Physical Therapy Pain in right wrist 10/05/23 HIRO NGUYEN MD Last Documented On 4 4:06PM ; [facility] Therapy - Occupational Therapy [...] and then resume the 20mg tablet Pharmacy: [facility] - [address] [place] [address], [id number] - Last Documented On 03/22/2024 6:20PM By Melany HENRIQUEZ ; [facility] Tadalafil 5 MG Oral Tablet Provider: HIRO Caro 90 day supply: 90 tablet, 0 refills Diagnosis: One tablet daily or can take 2-4 tablets (10-20mg) every 72 hours prn sexual activity Pharmacy: [facility] - [address] [place] [address], [id number] - Last Documented On 4 9:30AM By HIRO HAINES MD ; [facility] Current Medications (continue as prescribed) EQ Aspirin Adult Low Dose 81 MG Oral Tablet Delayed Release 07/14/2023 Provider: THIEN LOZANO MD Diagnosis: Last Documented On 10/05/2023 8:14AM By Melany HENRIQUEZ ; [facility] Rosuvastatin Calcium 10 MG O ral Tablet 04/06/2023 Provider: HIRO Caro Diagnosis: Mixed hyperlipid emia TAKE 1 TABLET BY MOUTH AT BEDTIME Last Documented On 3 8:50AM By HIRO HAINES MD ; [facility] Melatonin 5 MG Oral Capsule 10/06/2022 Provider: Diagnosis: Last Documented On 10/06/2022 10:00AM By Melany HENRIQUEZ ; [facility] Tamsulosin HCl 0.4MG Oral Capsule 04/05/2019 Provide r: Diagnosis: Last Documented On 9 9:16AM By HIRO HAINES MD ; [facility] Medications Administered Includes: Administered [...] 99 Last Documented: On 10/05/2023 8:24AM ; [facility] Results Includes: Results discussed [...] due to his back. He sees a associate application developer (Dr. Lozano). 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 04/05/2019 Last Documented On 4 8:09AM ; [facility] Smoking Status Unknown Procedures and Surgical History Includes: Procedures from this encounter Procedures Code Diagnosis Performing Provider Service L ocation Service Date education and instructions Last Documented On 4 4:04PM ; [facility] explanation of plan : patien t/guardian states understanding of and agreement to treatment options and plan Last Documented On 4 4:04PM ; [facility] medication list reviewed Last Documented On 4 4:04PM ; [facility] use of tobacco assessment performed [...] 0 Last Documented On 4 8:09AM ; [facility] Reviewed & agreed to staff entries. Last Documented On 4 4:04PM ; [facility] Clinical summary provided to patient Last Documented On 4 4:04PM ; [facility] reviewed laboratory-based chemistry Last Documented On 4 9:13AM ; [facility] Surgical History Last Updated History of appendectomy AGE 13 ~eyelid lift faustina 3-20 ~RT carpal tunnel 06/2020 Dr. Garcia. ~LT carpal tunnel 01/2020 Dr. Garcia. ~second right carpal tunnel surgery - Dr Rdz 10/06/2022 Last Documented On 4 8:09AM ; [facility] Prior surgery 12/25/2021 Last Documented On 4 8:09AM ; [facility] Medical History Includes: Medical History addressed during this encounter Description Last Updated No recent change in medical history 10/21 Last Documented On 4 8:09AM ; [facility] Please list all surgeries Carpal tunnel . 12/10/2020 Last Documented On 4 8:09AM ; [facility] History of arthritis ~Benign [...] 12/03 Last Documented On 4 8:09AM ; [facility] Family history unchanged 10/15/2017 Last Documented On 4 8:09AM ; [facility] Review of Systems Includes: Review [...] Active Last Documented On 4 2:57PM ; [facility] Encounters Encounter Provider Location Date Check-In Time Check-Out Time Diagnosis CHECK UP HIRO HAINES MD [facility] 10/05/19 24 8:05AM 9:44AM Trigger Finger of Right Middle Finger,Rehana wisam Arthralgia - Ulna / Radius / Wrist Right,Hyperlip idemia,Benign Prostatic Hypertrophy,As sessment of Tingling of the Hands Insurance Includes: Active Insurance Policies Plan Name Member ID Group # Subscriber Relationship Effect david Dates 1 - MEDICARE PART A CLAIMS/NGS [id number] ARTUR Neves 08/20/2011 - Unknown 2 - [employer] MEDICARE SUPPLEMENT [id number] ARTUR Neves Clinical Notes Includes: Clinical Notes from this encounter * Progress note Date Encounter Last Documented by 10/05/2023 CHECK UP Last documented on 10/05/2023; 4:06 PM, HIRO HAINES MD; [facility] Active Problems & Conditions - [...] due to his back. He sees a associate application developer (Dr. Lozano). As per the patient, he [...] None. Marital: Currently APOLONIA (1964) NEFTALI Dai joss house keeper. Functional: [PHQ-2] Patient Health Questionnaire 2 [...]
--- OUTSIDE RECORDS SUMMARY | 2025-01-12 12:19 | XMS_ITS ---
Author Organization [facility] Address [address] [place] [address] Phone Care Team Providers Care Program Evaluation Consultant Name Role Phone HIRO HAINES MD Primary Care Provider [phone] Reason for Referral Date Encounter Description Provider Reason for Referral 01/01/14 PROBLEM VISIT HIRO HAINES MD Reque st Consultation By Specialist Problems Includes: Active, inactive, and resolved Problems All Visits Onset Date Resolved Date Provider Condition S tatus Trigger Finger of Right Middle Finger 05/27/2023 JOSE RDZ DO Active Last Documented On 3 2:33PM ; [facility] Tenosynovitis De Quervain's 04/30/2022 MERCEDES Archer Active Last Documented On 2 9:27AM ; [facility] Note: left Carpal Tunnel Syndrome Right 12/25/2021 MERCEDES Archer Active Last Documented On 2 9:53AM ; [facility] Note: right carpal tunnel revision on 08/[address] 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 TONO ONEIL MD Active Last Documented On 1 3:46PM ; [facility] Tingling of the Hands 12/06/2019 HIRO DIAZ MD Active Last Documented On 09/16/2021 1:52PM ; [facility] Note: Unchanged Sciatica 09/19/2019 OLGA LIDIA RILEY PA-C Act david Last Documented On 09/19/2019 3:30PM ; [facility] Note: --has done bee venom therapy which has helped Actinic Keratosis 12/30/2011 HIRO HAINES MD Active Last Documented On 2 3:40PM ; [facility] Benign Prostatic Hypertrophy 12/30/2011 HIRO HAINES MD Active Last Documented On 2 11:16PM ; [facility] Hyperlipidemia 01/16/2009 HIRO HAINES MD Active Last Documented On 0 2:41PM ; [facility] Plan of Treatment Findings Encounter Date We [...] 01/27/2024 Last Documented On 4 3:25PM ; [facility] I discussed with Artur nolasco his [...] 05/27/2023 Last Documented On 3 2:35PM ; [facility] He will continue with activi april swift [...] 04/30/2022 Last Documented On 2 9:32AM ; [facility] He is around 6 weeks out fro [...] 03/09/2022 Last Documented On 2 9:11AM ; [facility] He has an improving situatio n with [...] 02/09/2022 Last Documented On 2 9:59AM ; [facility] He will be having upcoming r ight carpal tunnel revision surgery by Dr. Rdz. We updated his H&P today FOLLOW UP with MERCEDES Archer 01/23/2022 Last Documented On 2 1:56PM ; [facility] I had a long discussion toda y [...] help with his arthritis. 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 [...] 12/25/2021 Last Documented On 2 9:49AM ; [facility] Ordered patient will call fo appointment as needed PROBLEM VISIT with PÉREZ BERMUDEZ [facility] 11/06/2021 Last Documented On 2 12:41PM ; [facility] Ordered return to the clinic if condition worsens or new symptoms arise PROBLEM VISIT with PÉREZ BERMUDEZ [facility]- 11/06/2021 Last Documented On 2 12:41PM ; [facility] Ordered Clinical summary pro vided to patient . Plan discussed and patient/parent/caregiver states understanding PROBLEM VISIT with OLGA LIDIA RILEY PA-C 08/21/2021 Last Documented On 1 5:07PM ; [facility] Ordered follow-up visit as n eeded [...] 08/21/2021 Last Documented On 1 5:07PM ; [facility] The options include close observation WA LK IN PATIENT - ESTABLISHED PT with CATIE MCBRIDE-C 04/26/2021 Last Documented On 1 11:23AM ; [facility] Pt to use prescription as or dered. Purpose of and use of medication discussed. COVID SICK VISIT- ESTABLISHED PATIENT with CARLOS RUIZ [facility]- 03/21/2021 Last Documented On 1 9:05AM ; [facility] Ordered Clinical summary pro vided to patient . Plan discussed and patient/parent/caregiver states understanding PROBLEM VISIT with OLGA LIDIA RILEY PA-C 11/29/2020 Last Documented On 1 12:03PM ; [facility] Ordered follow-up visit as n eeded with an office visit. Handout given on ear fungus. Use chair maker after showers to keep ear as dry as possible. Avoid cotton swabs! Can use mixture of equal parts of vinegar and rubbing alcohol twice a day to help decrease fungal growth. Referral to ENT sent. Can get COVID vaccine at [facility] in but [facility] an [facility]t. If not can call here and will get you connected with [employer]. Use flonase nasal spray daily for inner ear fluid. Call sooner if needed. Total time spent >30min discussing his ears and covid vaccine PROBLEM VISIT with OLGA LIDIA RILEY PA-C 11/29/2020 Last Documented On 1 12:03PM ; [facility] Clinical summary provided to patient PRO BLEM VISIT with MARY ANN VENEGAS [facility] 11/18/2020 Last Documented On 1 4:27PM ; [facility] Plan of care reviewed and agreed to PROB AMERICA VISIT with MARY ANN VENEGAS [facility] 11/18/2020 Last Documented On 1 4:27PM ; [facility] Ordered follow-up visit as n eeded with [...] 11/12/2020 Last Documented On 1 12:46PM ; [facility] Ordered Clinical summary pro vided to patient . Plan discussed and patient/parent/caregiver states understanding PROBLEM VISIT with OLGA LIDIA RILEY PA-C 10/18/2020 Last Documented On 1 3:25PM ; [facility] Ordered follow-up visit as n eeded with an office visit. Start and finish antibiotic. Hold off on the ear drops for now. OK to take aleve as needed and local heat to ear for pain. Call sooner if needed PROBLEM VISIT with OLGA LIDIA RILEY PA-C 10/18/2020 Last Documented On 1 3:25PM ; [facility] Go to the emergency room if condition worsens WALK-IN CLINIC SICK VISIT with MARY ANN MCBRIDE-BC 10/12/2020 Last Documented On 1 4:23PM ; [facility] Ordered follow-up visit as n eeded with an office visit. WALK-IN CLINIC SICK VISIT with MARY ANN MCBRIDE-BC 10/12/2020 Last Documented On 1 4:23PM ; [facility] Watch for signs/symptoms of infection WA LK-IN CLINIC SICK VISIT with MARY ANN MCBRIDE-BC 10/12/2020 Last Documented On 1 4:23PM ; [facility] Continue current medication SICK VISIT with NINI MALAGON MATHEMATICS IMPROVEMENT TEACHER-C 08/13/2020 Last Documented On 0 5:06PM ; [facility] The options include close observation SI CK VISIT with DAMASO MALAGON MATHEMATICS IMPROVEMENT TEACHER-C 08/13/2020 Last Documented On 0 5:06PM ; [facility] Ordered Clinical summary pro vided to patient . Plan discussed and patient/parent/caregiver states understanding PROBLEM VISIT with OLGA LIDIA RILEY PA-C 10/30/2019 Last Documented On 0 4:14PM ; [facility] Ordered follow-up visit as n [...] 10/30/2019 Last Documented On 0 4:14PM ; [facility] Ordered Clinical summary pro vided to patient . Plan discussed and patient/parent/caregiver states understanding PROBLEM VISIT with OLGA LIDIA RILEY PA-C 09/19/2019 Last Documented On 9 3:46PM ; [facility] Ordered follow-up visit as n eeded with an office visit. Local heat to area x 20min, few times a day. Can apply antibiotic ointment to area as needed. Call if area becomes red, warm, tender PROBLEM VISIT with OLGA LIDIA RILEY PA-C 09/19/2019 Last Documented On 9 3:46PM ; [facility] Ordered patient will call fo r appointment as needed WALK-IN CLINIC SICK VISIT with MARY ANN SELF [facility] 10/25/2018 Last Documented On 9 11:08AM ; [facility] Ordered referred to primary care physician WALK-IN CLINIC SICK VISIT with MARY ANN SELF [facility] 10/25/2018 Last Documented On 9 11:08AM ; [facility] Ordered return to the clinic if condition worsens or new symptoms arise WALK-IN CLINIC SICK VISIT with MARY ANN SELF [facility] 10/25/2018 Last Documented On 9 11:08AM ; [facility] Ordered Transition in care, clinical summary provided WALK-IN CLINIC SICK VISIT with MARY ANN SELF [facility] 10/25/2018 Last Documented On 9 11:08AM ; [facility] Ordered patient will call fo r appointment as needed WALK-IN CLINIC SICK VISIT with PÉREZ BERMUDEZ [facility] 10/15/2017 Last Documented On 8 10:39AM ; [facility] Ordered return to the clinic if condition worsens or new symptoms arise WALK-IN CLINIC SICK VISIT with PÉREZ BERMUDEZ [facility]- 10/15/2017 Last Documented On 8 10:39AM ; [facility] Ordered return to the clinic if condition worsens or new symptoms arise SICK VISIT with HIRO HAINES MD 11/25/2016 Last Documented On 7 10:43AM ; [facility] Ordered Transition in care, clinical summary provided PROBLEM VISIT with HIRO HAINES MD 01/01/2014 Last Documented On 4 8:29PM ; [facility] Ordered Clinical summary pro vided to patient SICK VISIT with EDISON LEYVA D.O. 04/20/2013 Last Documented On 3 2:30PM ; [facility] Ordered patient to call if p joem develops 6 MONTH CHECK with HIRO HAINES MD 07/18/2012 Last Documented On 2 7:12PM ; [facility] Pending Tests Order Diagnosis Results Due Ordering P rovider Therapy - Physical Therapy Physical Therapy Pain in right wrist 10/05/23 HIRO NGUYEN MD Last Documented On 4 4:06PM ; [facility] Therapy - Occupational Therapy Occupational Therapy Pain in right wrist 10/05/23 HIRO HAINES MD Last Documented On 4 4:06PM ; [facility] Lab LIPID PANEL 04/02/24 HIRO MATTHEWS MD Last Documented On 4 8:04AM ; [facility] Lab CMP 04/02/24 HIRO DIAZ MD Last Documented On 4 8:04AM ; [facility] Referrals To Diagnosis Informatics Consultant TISH PORTER MD Dysphagi a NOS Note: DR Chen FOR ESOPHAGUS STR ETCHING, PLEASE VERIFY WITH PRICE KIMBLE, SEE TODAYS NOTE Last Documented On 1 2:22PM ; [facility] Urologist BPH W/O Urinary Obs/LUTS Note: DR VENEGAS FOR POSSIB LE TURP Last Documented On 4 9:24AM ; [facility] ENT Specialist [facility] - [address] [place] Room 1100 [id number] - Chronic sinusitis, unspecified Note[facility] [phone] Last Documented On 8 12:32AM ; [facility] ENT Specialist GHISLAINE WHITTINGTON MD Aural verti go, unspecified ear Last Documented On 9 10:01PM ; [facility] Orthopedic PARISH GARCIA DO - [address] [id number] - Carpal tunnel syndrome, bilateral upper limbs Last Documented On 0 9:38PM ; [facility] Pain Management Cervicalgia Note: PAIN MANAGEMENT Last Documented On 1 6:47PM ; [facility] Orthopedic WASH Cervicalgia Note: Referral to [facility]. Adair Burch at [facility] for further eval Last Documented On 1 9:54PM ; [facility] ENT Specialist MICHELLE NGUYỄN DO Otitis externa in oth diseases classd elswhr, left ear Last Documented On 2 5:29PM ; [facility] Pain Management [facility] - [address] [place] [phone] - Spinal stenosis, cervical region Note: consent for C6-7 inter laminar epidural Last Documented On 2 2:04PM ; [facility] Pain Management TONO ONEIL MD - [address] [address] - Other lesions of median nerve, right upper limb Note: Right Median NErve Blo ck at wrist under US guidance.No PIV. No hold ASA/NSAIDs, No blood thinners. No tow driver needed. Last Documented On 2 2:05PM ; [facility] Orthopedic JOSE RDZ DO Carpal tunnel sy ndrome, right upper limb Last Documented On 4 10:44AM ; [facility] Nursing Informatics Specialist THIEN LOZANO MD [facility] [place] coronary artery w/o ang pctrs Note: Referred to cardiology Dr. Lozano for elevated calcium score and positive family history. Last Documented On 3 5:52PM ; [facility] Instructions to patient No reduced physical activity -release to full activities Last Documented On 3 2:30PM ; [facility] Intervention and counseling on cessation of tobacco use Last Documented On 3 1:54PM ; [facility] Intervention and counseling on cessation of tobacco use Last Documented On 2 9:08AM ; [facility] Intervention and counseling on cessation of tobacco use Last Documented On 2 8:52AM ; [facility] Maintain a healthy diet and normal weight. Increased weight leads to problems with blood pressure and diabetes. Decrease saturated fat in your diet and increase regular protein (meat, fish, chicken, and eggs, or beans. lentils, and tofu), and grains such as rice. Get information from your caregiver, if needed Last Documented On 1 10:22AM ; [facility] Avoid walking barefoot Last Documented On 10:22AM ; [facility] Wear appropriate shoes Last Documented On 10:22AM ; [facility] Elevate head of bed Last Documented On 1 10:22AM ; [facility] Maintain good oral hygiene Last Documented On 1 10:22AM ; [facility] Regular healthcare visits Last Documented On 1 10:22AM ; [facility] Observe the stool for Blood Last Documented On 1 10:22AM ; [facility] Recommend Calcium supplement ation and weight bearing exercise Last Documented On 1 10:22AM ; [facility] Go to the emergency room if condition worsens Last Documented On 1 4:22PM ; [facility] Watch for signs/symptoms of infection Last Documented On 1 4:22PM ; [facility] Watch for signs/symptoms of infection, return to the clinic if seen Last Documented On 1 4:22PM ; [facility] Instructions for patient Last Documented On 9 11:04AM ; [facility] Return to the clinic if cond ition worsens or new symptoms arise Last Documented On 1 9:19AM ; [facility] Return to the clinic if cond ition worsens or new symptoms arise Last Documented On 1 8:21AM ; [facility] Increase water po Last Documented On 0 10:35PM ; [facility] Education and Decision Aids were provided during visit for: Patient education about home safety plans for prevention of falls : Patient completed a Fall risk assesment and was provided fall risk education materials Last Documented On 4 8:09AM ; [facility] Patient education about orth opedic activities Last Documented On 3 2:30PM ; [facility] Patient education about home safety plans for prevention of falls : Patient completed a Fall risk assesment and was provided fall risk education materials Last Documented On 3 8:11AM ; [facility] Patient education about home safety plans for prevention of falls : Patient completed a Fall risk assesment and was provided fall risk education materials Last Documented On 3 9:55AM ; [facility] Patient education about home safety plans for prevention of falls : Patient completed a Fall risk assesment and was provided fall risk education materials Last Documented On 2 9:43AM ; [facility] Patient education about orth opedic activities Last Documented On 2 9:46AM ; [facility] Patient education about home safety plans for prevention of falls : Patient completed a Fall risk assesment and was provided fall risk education materials Last Documented On 1 7:34AM ; [facility] Patient education about home safety plans for prevention of falls : Patient completed a Fall risk assesment and was provided fall risk education materials Last Documented On 1 9:06AM ; [facility] Patient education about a pr oper diet Last Documented On 1 10:22AM ; [facility] Patient education about phys ical activity benefits Last Documented On 1 10:22AM ; [facility] Patient education about medi cation Last Documented On 1 10:22AM ; [facility] Patient education about medi cation Last Documented On 1 10:22AM ; [facility] Patient education about the proper use of medications Last Documented On 1 10:22AM ; [facility] Patient education about the proper use of medications Last Documented On 1 10:22AM ; [facility] Patient education about home safety plans for prevention of falls : Patient completed a Fall risk assesment and was provided fall risk education materials Last Documented On 1 10:18AM ; [facility] Patient education about home safety plans for prevention of falls Last Documented On 1 10:22AM ; [facility] Patient education about inju ry prevention Falls are a leading cause of injury and while they affect all age groups, have greater short and superintendent marine oil [employer] impact on older age groups. Of those [...] fall Last Documented On 1 10:22AM ; [facility] Patient education about geraldine ry strategies Learn a new skill. ~Spend time with friends and family. ~Use memory tools such as big calendars, to-do lists, and notes to yourself. ~Put wallet or purse ,keys,and glasses in the same place each day. ~Get lots of rest. ~Exercise and eat well Last Documented On 1 10:22AM ; [facility] Patient education about anti biotics: need to finish even if feeling better Last Documented On 7 10:36AM ; [facility] Parent education about medic ation use Last Documented On 0 10:35PM ; [facility] Assessments Includes: Assessments for all patient encounters Findings Encounter Date Trigger finger of the right middle finger ORTHO ESTABLISHED PATIENT with MERCEDES Archer 01/27/2024 Last Documented On 4 3:25PM ; [facility] Assessment of tingling of the hands CHECK UP wit nesha HAINES MD 10/05/2023 Last Documented On 4 4:06PM ; [facility] Benign prostatic hypertrophy CHECK UP with GAB HAINES MD 10/05/2023 Last Documented On 4 4:06PM ; [facility] Compression arthralgia of th e right ulna/radius/wrist CHECK UP with HIRO HAINES MD 10/05/2023 Last Documented On 4 4:06PM ; [facility] Hyperlipidemia CHECK UP with HIRO HAINES MD 10/05/2023 Last Documented On 4 4:06PM ; [facility] Trigger finger of the right middle finger CHECK UP with HIRO HAINES MD 10/05/2023 Last Documented On 4 4:06PM ; [facility] Trigger finger (acquired) FOLLOW UP with JOSE RDZ DO 05/27/2023 Last Documented On 3 2:35PM ; [facility] Trigger finger of the right middle finger FOLLOW UP with JOSE RDZ DO 05/27/2023 Last Documented On 3 2:35PM ; [facility] Actinic keratosis CHECK UP with HIRO HEATH MD 04/06/2023 Last Documented On 3 5:52PM ; [facility] Benign prostatic hypertrophy CHECK UP with GAB HAINES MD 04/06/2023 Last Documented On 3 5:52PM ; [facility] Coronary artery disease CHECK UP with HIRO SOMERS MD 04/06/2023 Last Documented On 3 5:52PM ; [facility] Hyperlipidemia CHECK UP with HIRO HAINES MD 04/06/2023 Last Documented On 3 5:52PM ; [facility] Right trigger finger (acquired) CHECK UP with ANIL HAINES MD 04/06/2023 Last Documented On 3 5:52PM ; [facility] Arthralgia of left shoulder region CHECK UP with HIRO HAINES MD 10/06/2022 Last Documented On 3 11:47PM ; [facility] Hyperlipidemia CHECK UP with HIRO HAINES MD 10/06/2022 Last Documented On 3 11:47PM ; [facility] RIGHT KNEE PAIN CHECK UP with HIRO HAINES MD 10/06/2022 Last Documented On 3 11:47PM ; [facility] De Quervain's tenosynovitis FOLLOW UP with ROCIO Archer 04/30/2022 Last Documented On 2 9:32AM ; [facility] Right carpal tunnel syndrome FOLLOW UP with ROBE RT E JULIUS Archer 04/30/2022 Last Documented On 2 9:32AM ; [facility] Benign prostatic hypertrophy CHECK UP with GAB HAINES MD 04/03/2022 Last Documented On 2 10:33PM ; [facility] Hyperlipidemia CHECK UP with HIRO HAINES MD 04/03/2022 Last Documented On 2 10:33PM ; [facility] Right carpal tunnel syndrome FOLLOW UP with ROBE RT E JULIUS Archer 03/09/2022 Last Documented On 2 9:11AM ; [facility] Cerumen impaction COVID SICK VISIT- ES TABLISHED PATIENT with CARLOS RUIZ MATHEMATICS IMPROVEMENT TEACHER-C 02/28/2022 Last Documented On 2 3:43PM ; [facility] Right carpal tunnel syndrome FOLLOW UP with ROBE RT E JULIUS Archer 02/09/2022 Last Documented On 2 9:59AM ; [facility] Right carpal tunnel syndrome FOLLOW UP with ROBE RT E JULIUS Archer 01/23/2022 Last Documented On 2 1:56PM ; [facility] Carpal tunnel syndrome -right wrist ORTH O ESTABLISHED PATIENT with JOSEPETR RDZ DO 12/25/2021 Last Documented On 2 9:49AM ; [facility] Right carpal tunnel syndrome ORTHO ESTAB LISHED PATIENT with JOSE G KOTH DO 12/25/2021 Last Documented On 2 9:49AM ; [facility] Spontaneous rupture of forearm tendon PA OBLEM VISIT with PÉREZ BERMUDEZ PMHNP-BC MATHEMATICS IMPROVEMENT TEACHER-BC 11/06/2021 Last Documented On 2 12:41PM ; 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 [R20.1 - Hypoesthesia of ski n] numbness PREOP EXAM with HIRO HAINES MD 09/16/2021 Last Documented On 2 7:41PM ; [facility] Assessment of tingling of the hands PREOP EXAM w ith HIRO HAINES MD 09/16/2021 Last Documented On 2 7:41PM ; [facility] Cataract PREOP EXAM with HIRO HEATH MD 09/16/2021 Last Documented On 2 7:41PM ; [facility] Hyperlipidemia PREOP EXAM with HIRO HEATH MD 09/16/2021 Last Documented On 2 7:41PM ; [facility] Eczema PROBLEM VISIT with OLGA LIDIA SOLIZ INS PA-C 08/21/2021 Last Documented On 1 5:07PM ; [facility] Xerosis cutis PROBLEM VISIT with OLGA LIDIA SOLIZ INS PA-C 08/21/2021 Last Documented On 1 5:07PM ; [facility] Cerumen impaction in the left ear WALK I N PATIENT - ESTABLISHED PT with CATIE GURROLA MATHEMATICS IMPROVEMENT TEACHER-C 04/26/2021 Last Documented On 1 11:23AM ; [facility] Acute sinusitis COVID SICK VISIT- ES TABLISHED PATIENT with CARLOS LAZOCLAIR MATHEMATICS IMPROVEMENT TEACHER-C 03/21/2021 Last Documented On 1 9:05AM ; [facility] Contact with and (Suspected) exposure to COVID-19 COVID SICK VISIT- ESTABLISHED PATIENT with CARLOS Kruger RUIZ MATHEMATICS IMPROVEMENT TEACHER-C 03/21/2021 Last Documented On 1 9:05AM ; [facility] Arthralgia of the right ulna/radius/wrist CHECK UP with HIRO HAINES MD 01/27/2021 Last Documented On 1 10:35PM ; [facility] Cervicalgia CHECK UP with HIRO HAINES MD 01/27/2021 Last Documented On 1 10:35PM ; [facility] Constipation CHECK UP with HIRO HAINES MD 01/27/2021 Last Documented On 1 10:35PM ; [facility] Hyperlipidemia CHECK UP with HIRO HAINES MD 01/27/2021 Last Documented On 1 10:35PM ; [facility] Other lesion of Median nerve INJECTION with WILL BONNY ONEIL MD 01/17/2021 Last Documented On 1 7:30AM ; [facility] Right carpal tunnel syndrome INJECTION with WILL BONNY ONEIL MD 01/17/2021 Last Documented On 1 7:30AM ; [facility] Carpal tunnel syndrome FOLLOW UP with TONO ONEIL MD 01/08/2021 Last Documented On 1 8:16AM ; [facility] Cervical radiculopathy FOLLOW UP with TONO ONEIL MD 01/08/2021 Last Documented On 1 8:16AM ; [facility] Cervical spine stenosis FOLLOW UP with TONO ONEIL MD 01/08/2021 Last Documented On 1 8:16AM ; [facility] Cervical spondylosis with radiculopathy FOLLOW U P with TONO ONEIL MD 01/08/2021 Last Documented On 1 8:16AM ; [facility] Low back pain FOLLOW UP with TONO ONEIL MD 01/08/2021 Last Documented On 1 8:16AM ; [facility] Osteoarthritis of multiple sites FOLLOW UP with TONO ONEIL MD 01/08/2021 Last Documented On 1 8:16AM ; [facility] Other lesion of Median nerve FOLLOW UP with WILL BONNY ONEIL MD 01/08/2021 Last Documented On 1 8:16AM ; [facility] Cervical radiculopathy PAIN MANAGEMENT N EW CONSULT ESTABLISHED with ROJELIO CAN-BC 12/10/2020 Last Documented On 1 11:29PM ; [facility] Cervical spine stenosis PAIN MANAGEMENT NEW CONSULT ESTABLISHED with ROJELIO CAN-BC 12/10/2020 Last Documented On 1 11:29PM ; [facility] Cervical spondylosis with radiculopathy PAIN MANAGEMENT NEW CONSULT ESTABLISHED with ROJELIO CAN-BC 12/10/2020 Last Documented On 1 11:29PM ; [facility] Routine senior citizen histo ry and physical (65-80 yrs) without abnormal fin dings ANNUAL MEDICARE WELLNESS VISIT with OLGA LIDIA RILEY PA-C 12/03/2020 Last Documented On 1 11:47AM ; [facility] Chronic mycotic otitis externa PROBLEM VISIT wit nesha LIANG-C 11/29/2020 Last Documented On 1 12:03PM ; [facility] Eustachian tube dysfunction PROBLEM VISIT with Ernie DUMONTC 11/29/2020 Last Documented On 1 12:03PM ; [facility] Acute suppurative otitis med ia of the left ear PROBLEM VISIT with MARY ANN MOE 11/18/2020 Last Documented On 1 4:27PM ; [facility] Cerumen impaction in the left ear PROBLEM VISIT with OLGA LIDIA DUMONTC 11/12/2020 Last Documented On 1 12:46PM ; [facility] Eczema PROBLEM VISIT with OLGA LIDIA LIANG-C 11/12/2020 Last Documented On 1 12:46PM ; [facility] Cerumen impaction in the left ear PROBLEM VISIT with HIRO HAINES MD 11/04/2020 Last Documented On 1 10:59PM ; [facility] Cervicalgia PROBLEM VISIT with HIRO MATTHEWS MD 11/04/2020 Last Documented On 1 10:59PM ; [facility] Hearing loss PROBLEM VISIT with HIRO MATTHEWS MD 11/04/2020 Last Documented On 1 10:59PM ; [facility] Cerumen impaction in the left ear PROBLEM VISIT with HIRO HAINES MD 10/28/2020 Last Documented On 1 5:30PM ; [facility] Hearing loss PROBLEM VISIT with HIRO MATTHEWS MD 10/28/2020 Last Documented On 1 5:30PM ; [facility] Acute otitis externa of the left ear PRO BLEM VISIT with OLGA LIDIA RILEY PA-C 10/18/2020 Last Documented On 1 3:25PM ; [facility] Eustachian tube dysfunction PROBLEM VISIT with Ernie RILEY PA-C 10/18/2020 Last Documented On 1 3:25PM ; [facility] Cerumen impaction in the left ear WALK-I N CLINIC SICK VISIT with MARY ANN SELF MATHEMATICS IMPROVEMENT TEACHER-BC 10/12/2020 Last Documented On 1 4:23PM ; [facility] [R42 - Dizziness and giddine ss] dizziness 6 MONTH CHECK with HIRO HAINES MD 07/26/2020 Last Documented On 0 3:54PM ; [facility] Benign prostatic hypertrophy 6 MONTH CHECK with HIRO HAINES MD 07/26/2020 Last Documented On 0 3:54PM ; [facility] Hyperlipidemia 6 MONTH CHECK with HIRO MATTHEWS MD 07/26/2020 Last Documented On 0 3:54PM ; [facility] Low back pain 6 MONTH CHECK with HIRO MATTHEWS MD 07/26/2020 Last Documented On 0 3:54PM ; [facility] Benign prostatic hypertrophy 3 MONTH CHECK with HIRO HAINES MD 01/05/2020 Last Documented On 0 12:18AM ; [facility] Carpal tunnel syndrome 3 MONTH CHECK with HIRO HAINES MD 01/05/2020 Last Documented On 0 12:18AM ; [facility] Hyperlipidemia 3 MONTH CHECK with HIRO MATTHEWS MD 01/05/2020 Last Documented On 0 12:18AM ; [facility] Carpal tunnel syndrome GENERAL OFFICE VISIT with HIRO HAINES MD 11/08/2019 Last Documented On 0 8:33PM ; [facility] Hyperlipidemia GENERAL OFFICE VISIT with HIRO HAINES MD 11/08/2019 Last Documented On 0 8:33PM ; [facility] Splinter of fingers GENERAL OFFICE VISIT with ANIL HAINES MD 11/08/2019 Last Documented On 0 8:33PM ; [facility] Cervicalgia PROBLEM VISIT with OLGA LIDIA SPRINGER PA-C 10/30/2019 Last Documented On 0 4:14PM ; [facility] Disturbance in skin or paresthesia PROBL EM VISIT with OLGA LIDIA RILEY PA-C 10/30/2019 Last Documented On 0 4:14PM ; [facility] Hyperlipidemia 6 MONTH CHECK with HIRO MATTHEWS MD 10/06/2019 Last Documented On 0 5:29PM ; [facility] Ptosis of bilateral eyelids 6 MONTH CHECK with Suzi HAINES MD 10/06/2019 Last Documented On 0 5:29PM ; [facility] Superficial foreign body of finger ? PRO BLEM VISIT with OLGA LIDIA RILEY PA-C 09/19/2019 Last Documented On 9 3:46PM ; [facility] Superficial injury of fingers PROBLEM VISIT with HIRO HAINES MD 08/08/2019 Last Documented On 9 10:05PM ; [facility] Benign paroxysmal positional vertigo [facility] ROOM FOLLOW UP with HIRO HAINES MD 05/19/2019 Last Documented On 9 12:00PM ; [facility] Open wound of the left knee EMERGENCY RO OM FOLLOW UP with HIRO HAINES MD 05/19/2019 Last Documented On 9 12:00PM ; [facility] Hypotension CONSULTATION with HIRO DIAZ MD 05/08/2019 Last Documented On 9 11:14PM ; [facility] Polyneuropathy CONSULTATION with HIRO DIAZ MD 05/08/2019 Last Documented On 9 11:14PM ; [facility] Benign prostatic hypertrophy 6 MONTH CHECK with HIRO HAINES MD 04/05/2019 Last Documented On 9 9:39AM ; [facility] Hyperlipidemia 6 MONTH CHECK with HIRO MATTHEWS MD 04/05/2019 Last Documented On 9 9:39AM ; [facility] Peyronie's disease 6 MONTH CHECK with HIRO SOMERS MD 04/05/2019 Last Documented On 9 9:39AM ; [facility] Cervicalgia 6 MONTH CHECK with HIRO MATTHEWS MD 10/03/2018 Last Documented On 9 11:10AM ; [facility] Hyperlipidemia 6 MONTH CHECK with HIRO MATTHEWS MD 10/03/2018 Last Documented On 9 11:10AM ; [facility] Palpitations 6 MONTH CHECK with HIRO MATTHEWS MD 10/03/2018 Last Documented On 9 11:10AM ; [facility] Peripheral vertigo 6 MONTH CHECK with HIRO SOMERS MD 10/03/2018 Last Documented On 9 11:10AM ; [facility] Benign prostatic hypertrophy 1 YR CHECK-UP with HIRO HAINES MD 04/04/2018 Last Documented On 8 9:10AM ; [facility] Hyperlipidemia 1 YR CHECK-UP with HIRO MATTHEWS MD 04/04/2018 Last Documented On 8 9:10AM ; [facility] Acute sinusitis WALK-IN CLINIC SICK VISIT with PÉREZ BERMUDEZ [facility]- 10/15/2017 Last Documented On 8 10:39AM ; [facility] Acute upper respiratory infection WALK-I N CLINIC SICK VISIT with PÉREZ BERMUDEZ [facility]- 10/15/2017 Last Documented On 8 10:39AM ; [facility] Acute upper respiratory infection WALK-I N CLINIC SICK VISIT with TERESSA NARANJO [facility]- 10/12/2017 Last Documented On 8 10:31AM ; [facility] Neoplasm - benign, malignant , unspecified (including cysts, polyps) WALK-IN CLINIC SICK VISIT with TERESSA [facility] 10/12/2017 Last Documented On 8 10:31AM ; [facility] Upper respiratory infection WALK-IN CLIN IC SICK VISIT with TERESSA NARANJO [facility] 10/12/2017 Last Documented On 8 10:31AM ; [facility] Benign prostatic hypertrophy CONSULTATION with Suzi HAINES MD 10/05/2017 Last Documented On 8 12:23AM ; [facility] Hyperlipidemia CONSULTATION with HIRO DIAZ MD 10/05/2017 Last Documented On 8 12:23AM ; [facility] Hyperlipidemia 6 MONTH CHECK with HIRO MATTHEWS MD 04/02/2017 Last Documented On 7 9:38AM ; [facility] Low back pain 6 MONTH CHECK with HIRO MATTHEWS MD 04/02/2017 Last Documented On 7 9:38AM ; [facility] Acute sinusitis SICK VISIT with HIRO HEATH MD 11/25/2016 Last Documented On 7 10:43AM ; [facility] Benign prostatic hypertrophy 6 MONTH CHECK with HIRO HAINES MD 10/07/2016 Last Documented On 7 8:45AM ; [facility] Hyperlipidemia 6 MONTH CHECK with HIRO MATTHEWS MD 10/07/2016 Last Documented On 7 8:45AM ; [facility] Impingement of the left shoulder 6 MONTH CHECK w ith HIRO HAINES MD 10/07/2016 Last Documented On 7 8:45AM ; [facility] Actinic keratosis 6 MONTH CHECK with HIRO NGUYEN MD 03/25/2016 Last Documented On 6 12:52PM ; [facility] Benign prostatic hypertrophy 6 MONTH CHECK with HIRO HAINES MD 03/25/2016 Last Documented On 6 12:52PM ; [facility] Hyperlipidemia 6 MONTH CHECK with HIRO MATTHEWS MD 03/25/2016 Last Documented On 6 12:52PM ; [facility] Hyperlipidemia 6 MONTH CHECK with HIRO MATTHEWS MD 09/25/2015 Last Documented On 6 8:38AM ; [facility] Benign prostatic hypertrophy ELEVATED PSA MED CHECK with HIRO HAINES MD 05/01/2015 Last Documented On 5 12:17PM ; [facility] Hyperlipidemia MED CHECK with HIRO Brewster MD 05/01/2015 Last Documented On 5 12:17PM ; [facility] Benign prostatic hypertrophy 6 MONTH CHECK with HIRO HAINES MD 03/20/2015 Last Documented On 5 8:40AM ; [facility] Hyperlipidemia 6 MONTH CHECK with HIRO MATTHEWS MD 03/20/2015 Last Documented On 5 8:40AM ; [facility] Hyperlipidemia 6 MONTH CHECK with HIRO MATTHEWS MD 09/21/2014 Last Documented On 5 9:18AM ; [facility] Benign prostatic hypertrophy 6 MONTH CHECK with HIRO HAINES MD 03/21/2014 Last Documented On 4 9:15AM ; [facility] Hyperlipidemia 6 MONTH CHECK with HIRO MATTHEWS MD 03/21/2014 Last Documented On 4 9:15AM ; [facility] Benign prostatic hypertrophy PROBLEM VISIT with HIRO HAINES MD 01/01/2014 Last Documented On 4 8:29PM ; [facility] Benign prostatic hypertrophy PROBLEM VISIT with HIRO HAINES MD 11/17/2013 Last Documented On 4 8:44AM ; [facility] Benign prostatic hypertrophy 6 MONTH CHECK with HIRO HAINES MD 09/22/2013 Last Documented On 4 9:09AM ; [facility] Hyperlipidemia 6 MONTH CHECK with HIRO MATTHEWS MD 09/22/2013 Last Documented On 4 9:09AM ; [facility] Cerumen impaction PROBLEM VISIT with LILIBETH GORDON PA-C 06/29/2013 Last Documented On 3 1:30PM ; [facility] Cerumen impaction SICK VISIT with HIRO DIAZ MD 06/21/2013 Last Documented On 3 8:34AM ; [facility] Otitis externa SICK VISIT with HIRO HEATH MD 06/21/2013 Last Documented On 3 8:34AM ; [facility] Cerumen impaction SICK VISIT with HIRO DIAZ MD 04/25/2013 Last Documented On 3 8:32AM ; [facility] Otitis externa SICK VISIT with HIRO HEATH MD 04/25/2013 Last Documented On 3 8:32AM ; [facility] Otitis media POSSIBLE PERFORATION SICK VISIT wit nesha LEYVA D.O. 04/20/2013 Last Documented On 3 2:30PM ; [facility] Closed fracture of the phala nges of the right first toe 4 MONTH CHECK UP with HIRO HAINES MD 03/22/2013 Last Documented On 3 11:55PM ; [facility] Hyperlipidemia 4 MONTH CHECK UP with HIRO SOMERS MD 03/22/2013 Last Documented On 3 11:55PM ; [facility] Hyperlipidemia Health Maintenance with HIRO ALVARADO MD 11/22/2012 Last Documented On 3 9:00AM ; [facility] Hyperlipidemia 3 MONTH CHECK with HIRO MATTHEWS MD 10/18/2012 Last Documented On 3 9:01AM ; [facility] Actinic keratosis 6 MONTH CHECK with HIRO NGUYEN MD 07/18/2012 Last Documented On 2 7:12PM ; [facility] Hyperlipidemia 6 MONTH CHECK with HIRO MATTHEWS MD 07/18/2012 Last Documented On 2 7:12PM ; [facility] Actinic keratosis CHECK UP with HIRO HEATH MD 12/30/2011 Last Documented On 2 11:17PM ; [facility] Benign prostatic hypertrophy CHECK UP with GAB HAINES MD 12/30/2011 Last Documented On 2 11:17PM ; [facility] Hyperlipidemia CHECK UP with HIRO HAINES MD 12/30/2011 Last Documented On 2 11:17PM ; [facility] Hyperlipidemia * PHONE CALL with HIRO DIAZ MD 12/23/2011 Last Documented On 2 11:33PM ; [facility] Male erectile disorder * PHONE CALL with HIRO HAINES MD 12/23/2011 Last Documented On 2 11:33PM ; [facility] Dysphagia 1 MONTH CHECK with HIRO MATTHEWS MD 07/17/2011 Last Documented On 1 9:20AM ; [facility] Actinic keratosis PROBLEM VISIT with HIRO NGUYEN MD 06/18/2011 Last Documented On 1 8:24AM ; [facility] Dysphagia PROBLEM VISIT with HIRO MATTHEWS MD 06/18/2011 Last Documented On 1 8:24AM ; [facility] Chronic sinusitis SICK VISIT with HIRO DIAZ MD 06/16/2010 Last Documented On 0 10:35PM ; [facility] Hyperlipidemia CHECK UP with HIRO HAINES MD 04/18/2010 Last Documented On 0 6:33PM ; [facility] NOCTURIA CHECK UP with HIRO HAINES MD 04/18/2010 Last Documented On 0 6:33PM ; [facility] Instructions Includes: Instructions for all patient encounters Instructions to patient No reduced physical activity -release to full activities Last Documented On 3 2:30PM ; [facility] Intervention and counseling on cessation of tobacco use Last Documented On 3 1:54PM ; [facility] Intervention and counseling on cessation of tobacco use Last Documented On 2 9:08AM ; [facility] Intervention and counseling on cessation of tobacco use Last Documented On 2 8:52AM ; [facility] Maintain a healthy diet and normal weight. Increased weight leads to problems with blood pressure and diabetes. Decrease saturated fat in your diet and increase regular protein (meat, fish, chicken, and eggs, or beans. lentils, and tofu), and grains such as rice. Get information from your caregiver, if needed Last Documented On 1 10:22AM ; [facility] Avoid walking barefoot Last Documented On 1 10:22AM ; [facility] Wear appropriate shoes Last Documented On 1 10:22AM ; [facility] Elevate head of bed Last Documented On 1 10:22AM ; [facility] Maintain good oral hygiene Last Documented On 1 10:22AM ; [facility] Regular healthcare visits Last Documented On 1 10:22AM ; [facility] Observe the stool for Blood Last Documented On 1 10:22AM ; [facility] Recommend Calcium supplement ation and weight bearing exercise Last Documented On 1 10:22AM ; [facility] Go to the emergency room if condition worsens Last Documented On 1 4:22PM ; [facility] Watch for signs/symptoms of infection Last Documented On 1 4:22PM ; [facility] Watch for signs/symptoms of infection, return to the clinic if seen Last Documented On 1 4:22PM ; [facility] Instructions for patient Last Documented On 9 11:04AM ; [facility] Return to the clinic if cond ition worsens or new symptoms arise Last Documented On 1 9:19AM ; [facility] Return to the clinic if cond ition worsens or new symptoms arise Last Documented On 1 8:21AM ; [facility] Increase water po Last Documented On 0 10:35PM ; [facility] Education and Decision Aids were provided during visit for: Patient education about home safety plans for prevention of falls : Patient completed a Fall risk assesment and was provided fall risk education materials Last Documented On 4 8:09AM ; [facility] Patient education about orth opedic activities Last Documented On 3 2:30PM ; [facility] Patient education about home safety plans for prevention of falls : Patient completed a Fall risk assesment and was provided fall risk education materials Last Documented On 3 8:11AM ; [facility] Patient education about home safety plans for prevention of falls : Patient completed a Fall risk assesment and was provided fall risk education materials Last Documented On 3 9:55AM ; [facility] Patient education about home safety plans for prevention of falls : Patient completed a Fall risk assesment and was provided fall risk education materials Last Documented On 2 9:43AM ; [facility] Patient education about orth opedic activities Last Documented On 2 9:46AM ; [facility] Patient education about home safety plans for prevention of falls : Patient completed a Fall risk assesment and was provided fall risk education materials Last Documented On 1 7:34AM ; [facility] Patient education about home safety plans for prevention of falls : Patient completed a Fall risk assesment and was provided fall risk education materials Last Documented On 1 9:06AM ; [facility] Patient education about a pr oper diet Last Documented On 1 10:22AM ; [facility] Patient education about phys ical activity benefits Last Documented On 1 10:22AM ; [facility] Patient education about medi cation Last Documented On 1 10:22AM ; [facility] Patient education about medi cation Last Documented On 1 10:22AM ; [facility] Patient education about the proper use of medications Last Documented On 1 10:22AM ; [facility] Patient education about the proper use of medications Last Documented On 1 10:22AM ; [facility] Patient education about home safety plans for prevention of falls : Patient completed a Fall risk assesment and was provided fall risk education materials Last Documented On 1 10:18AM ; [facility] Patient education about home safety plans for prevention of falls Last Documented On 10:22AM ; [facility] Patient education about inju ry prevention Falls [...] will fall Last Documented On 10:22AM ; [facility] Patient education about geraldine ry strategies Learn a new skill. ~Spend time with friends and family. ~Use memory tools such as big calendars, to-do lists, and notes to yourself. ~Put wallet or purse ,keys,and glasses in the same place each day. ~Get lots of rest. ~Exercise and eat well Last Documented On 1 10:22AM ; [facility] Patient education about anti biotics: need to finish even if feeling better Last Documented On 7 10:36AM ; [facility] Parent education about medic ation use Last Documented On 0 10:35PM ; [facility] Medical Equipment - Implanted Devices Includes: Current and historical Devices No Medical Equipment Recorded Medications Includes: Current and historical Medications Current Medications (continue as prescribed) Tadalafil 5 MG Oral Tablet 10/05/2023 Provider: Suzi HAINES MD Diagnosis: One tablet daily or can take 2-4 tablets (10-20mg) every 72 hours prn sexual activity Last Documented On 4 9:30AM By HIRO HAINES MD ; [facility] Aspirin Adult Low Dose 81 MG Oral Tablet Delayed Release 07/14/2023 Provider: THIEN LOZANO MD Diagnosis: Last Documented On 10/05/2023 8:14AM By Melany HENRIQUEZ ; [facility] Rosuvastatin Calcium 10 MG O ral Tablet 04/06/2023 Provider: HIRO Caro Diagnosis: Mixed hyperlipid emia TAKE 1 TABLET BY MOUTH AT BEDTIME Last Documented On 3 8:50AM By HIRO HAINES MD ; [facility] Melatonin 5 MG Oral Capsule 10/06/2022 Provider: Diagnosis: Last Documented On 10/06/2022 10:00AM By Melany HENRIQUEZ ; [facility] Tamsulosin HCl 0.4MG Oral Capsule 04/05/2019 Provide r: Diagnosis: Last Documented On 9 9:16AM By HIRO HAINES MD ; [facility] Past Medications on file Rosuvastatin Calcium 10 MG Oral Tablet 10/05/2023 - 03/22/2024 Provider: HIRO HAINES MD Diagnosis: Mixed hyperlipid emia as directed one tablet a day to replace the 20mg starting a week before your bee therapy and continue for a week after bee therapy and then resume the 20mg tablet Last Documented On 03/22/2024 6:20PM By Melany HENRIQUEZ ; [facility] Rosuvastatin Calcium 10 MG Oral Tablet 02/04/2023 [...] Documented On 3:39PM By YEHUDA HENRIQUEZ ; [facility] Rosuvastatin Calcium 10 MG Oral Tablet 10/27/2021 - 06/24/2022 Provider: HIRO HAINES MD Diagnosis: Mixed hyperlipid emia TAKE 1 TABLET BY MOUTH AT BEDTIME Last Documented On 06/24/2022 9:53AM By Melany HENRIQUEZ ; [facility] Triamcinolone Acetonide 0.1% External Cream 09/25/2021 - 10/22/2021 Provider: OLGA LIDIA RILEY PA-C Diagnosis: apply thin later to affected area BID until waylon r. Last Documented On 04/03/2022 9:43AM By Melany HENRIQUEZ ; [facility] Fluocinolone Acetonide 0.01% External Cream 09/09/2021 - 11/06/2021 Provider: OLGA LIDIA RILEY PA-C Diagnosis: APPLY A THIN LAYER TO AFFECT ED AREAS TWICE DAILY UNTIL CLEAR (REPLACES EUCRISA) Last Documented On 11/06/2021 9:55AM By JOSSIE HENRIQUEZ ; [facility] Fluocinolone Acetonide 0.01% External Cream 08/21/2021 - 09/09/2021 Provider: OLGA LIDIA Tejada PA-C Diagnosis: Xerosis cutis Apply thin layer to affected areas BID until clear. Replaces Eucrisa. Last Documented On 09/09/2021 11:39AM By Melany HENRIQUEZ ; [facility] Eucrisa 2% External Ointment 08/21/2021 - 09/16/2021 Provider: OLGA LIDIA RILEY PA-C Diagnosis: Dermatitis, unsp ecified Apply small amount to affect ed areas BID until clear then as needed. Last Documented On 09/16/2021 1:05PM By JOSSIE HENRIQUEZ ; [facility] Amoxicillin-Pot Clavulanate 875-125 MG Oral Tablet 03/21/2021 - 08/21/2021 Provider: CARLOS RUIZ MATHEMATICS IMPROVEMENT TEACHER-C Diagnosis: Acute sinusitis, unspecified One tablet twice a day Last Documented On 1 5:05PM By OLGA LIDIA RILEY PA-C ; [facility] Rosuvastatin Calcium 10 MG Oral Tablet 02/11/2021 - 10/27/2021 Provider: HIRO HAINES MD Diagnosis: Mixed hyperlipid emia 1 TAB AT BED TIME EVERY OTHER DAY Last Documented On 10/27/2021 10:10AM By Melany HENRIQUEZ ; [facility] Amoxicillin-Pot Clavulanate 875-125 MG Oral Tablet 11/18/2020 - 11/29/2020 Provider: MARY ANN VENEGAS MATHEMATICS IMPROVEMENT TEACHER-C Diagnosis: Acute suppr otit is media w/o spon rupt ear drum, left ear One tablet twice a day Last Documented On 11/29/2020 11:01AM By Beulah HENRIQUEZ ; [facility] Ciprofloxacin HCl 0.3% Ophthalmic Solution 10/28/2020 - 11/18/2020 Provider: HIRO HEATH MD Diagnosis: as directed 3 gtts BID to left ear for 7 days Last Documented On 4:15PM By Mary Ann Venegas MATHEMATICS IMPROVEMENT TEACHER-C ; [facility] Amoxicillin-Pot Clavulanate 875-125 MG Oral Tablet 10/18/2020 - 11/04/2020 Provider: OLGA LIDIA RILEY PA-C Diagnosis: Unspecified acut e noninfective otitis externa, left ear One tablet twice a day Last Documented On 11/04/2020 9:45AM By Melany HENRIQUEZ ; [facility] Rosuvastatin Calcium 10 MG Oral Tablet 07/26/2020 - 02/11/2021 Provider: HIRO HAINES MD Diagnosis: Mixed hyperlipid emia One tablet at bed time Last Documented On 02/11/2021 12:52PM By Melany HENRIQUEZ ; [facility] Rosuvastatin Calcium 10 MG Oral Tablet 01/05/2020 - 07/26/2020 Provider: HIRO HAINES MD Diagnosis: Mixed hyperlipid emia One tablet at bed time Last Documented On 0 3:14PM By HIRO HAINES MD ; [facility] Aspirin 81 MG Oral Tablet 10/06/2019 - 10/18/2020 Prov ider: Diagnosis: Last Documented On 10/18/2020 2:55PM By Beulah HENRIQUEZ ; [facility] Rosuvastatin Calcium 10 MG Oral Tablet 10/06/2019 - 01/05/2020 Provider: HIRO HAINES MD Diagnosis: Mixed hyperlipid emia One tablet at bed time Last Documented On 0 9:30AM By HIRO HAINES MD ; [facility] Finasteride 5 MG Oral Tablet 10/02/2019 - 07/26/2020 P rovider: HIRO DIAZ MD Diagnosis: One tablet daily Last Documented On 07/26/2020 2:39PM By Ofelia Esparza LPN ; [facility] Amoxicillin-Pot Clavulanate 875-125 MG Oral Tablet 08/08/2019 - 09/19/2019 Provider: HIRO HAINES MD Diagnosis: Unsp superficial injury of left index finger, init encntr One tablet twice a day Last Documented On 9 3:25PM By OLGA LIDIA RILEY PA-C ; [facility] Sildenafil Citrate 20MG Oral Tablet 04/05/2019 - 10/06/2019 Provider: HIRO HEATH MD Diagnosis: 5 tablets once a day prn note new strength Last Documented On 10/06/2019 9:12AM By JW HENRIQUEZ ; [facility] ZyrTEC Allergy 10MG Oral Tablet 10/25/2018 - 05/08/2019 Provider: MARY ANN LEWIS Diagnosis: Unspecified Eust achian tube disorder, unspecified ear One tablet daily Last Documented On 05/08/2019 10:39AM By JW HENRIQUEZ ; [facility] Flonase 50MCG/ACT Nasal Suspension 10/25/2018 - 10/18/2020 Provider: MARY ANN LEWIS Diagnosis: Unspecified Eust achian tube disorder, unspecified ear as directed Last Documented On 10/18/2020 2:55PM By Beulah HENRIQUEZ ; [facility] Proscar 5MG Oral Tablet 08/25/2018 - 04/03/2019 Provid er: HIRO HAINES MD Diagnosis: TAKE 1 TABLET BY MOUTH ONCE DAILY Last Documented On 9 9:15AM By HIRO HAINES MD ; [facility] Welchol 625MG Oral Tablet 06/06/2018 - 04/05/2019 Prov ider: HIRO HAINES MD Diagnosis: TAKE SIX TABLETS BY MOUTH ONCE DAILY DIRECTED Last Documented On 04/05/2019 8:38AM By JW HENRIQUEZ ; [facility] Finasteride 5MG Oral Tablet 04/04/2018 - 10/06/2019 Pr ovider: Diagnosis: Last Documented On 10/06/2019 9:12AM By JW HENRIQUEZ ; [facility] Sildenafil Citrate 20MG Oral Tablet 03/12/2018 - 04/05/2019 Provider: HIRO HEATH MD Diagnosis: 5 tablets once a day prn note new strength Last Documented On 9 9:28AM By HIRO HAINES MD ; [facility] Proscar 5MG Oral Tablet 01/21/2018 - 08/25/2018 Provid er: HIRO HAINES MD Diagnosis: TAKE ONE TABLET BY MOUTH ONCE DAILY Last Documented On 8 12:10AM By HIRO HAINES MD ; [facility] Sildenafil Citrate 100MG Ora l Tablet 01/04/2018 - 03/12/2018 Provider: HIRO HEATH MD Diagnosis: as directed Last Documented On 8 5:58PM By HIRO HAINES MD ; [facility] ZyrTEC Allergy 10MG Oral Tablet 10/15/2017 - 10/18/2020 Provider: PÉREZ BERMUDEZ [facility]- [employer]OV[employer] TEACHER- Diagnosis: Acute sinusitis, unspecified One tablet daily Last Documented On 10/18/2020 2:55PM By Beulah HENRIQUEZ ; [facility] Augmentin 875-125MG Oral Tablet 10/15/2017 - 10/30/2019 Provider: PÉREZ BERMUDEZ [facility]- [employer]HE[employer] IM[employer]OVEMENT TEACHER- Diagnosis: Acute sinusitis, unspecified One tablet twice a day Last Documented On 10/30/2019 2:51PM By JOSSIE HENRIQUEZ ; [facility] Proscar 5MG Oral Tablet 10/05/2017 - 01/21/2018 Provider: HIRO HAINES MD Diagnosis: Benign prostatic hyperplasia without lower urinry tract symp One tablet daily Last Documented On 01/21/2018 10:08AM By CALIXTO DILLARD CMA ; [facility] Welchol 625MG Oral Tablet 04/02/2017 - 06/06/2018 Prov ider: HIRO HAINES MD Diagnosis: TAKE SIX TABLETS BY MOUTH ONCE DAILY DIRECTED Last Documented On 06/06/2018 2:51PM By CALIXTO DILLARD CMA ; [facility] Viagra 100MG Oral Tablet 11/25/2016 - 01/04/2018 Provi ye: HIRO HAINES MD Diagnosis: as directed Last Documented On 8 10:09PM By HIRO HAINES MD ; [facility] Zithromax Z-Kwabena 250MG Oral Tablet 11/25/2016 - 10/30/2019 Provider: HIRO HAINES MD Diagnosis: Other acute sinusitis DIRECTED Last Documented On 10/30/2019 2:52PM By JOSSIE HENRIQUEZ ; [facility] Welchol 625 MG Tablet 07/20/2016 - 04/02/2017 Provider : HIRO HAINES MD Diagnosis: TAKE SIX TABLETS BY MOUTH ONCE DAILY DIRECTED Last Documented On 04/02/2017 9:23AM By CALIXTO DILLARD CMA ; [facility] Pumpkin Seed Oil Capsule, conventional 09/25/2015 - Provider: Diagnosis: Last Documented On 9 9:11AM By HIRO HAINES MD ; [facility] Welchol 625 MG Tablet 05/30/2015 - 07/20/2016 Provider : HIRO HAINES MD Diagnosis: TAKE SIX TABLETS BY MOUTH ONCE DAILY DIRECTED Last Documented On 07/20/2016 3:35PM By Sherri HENRIQUEZ ; [facility] Viagra 100 MG Tablet 05/01/2015 - 11/25/2016 Provider: HIRO HAINES MD Diagnosis: HYPERLIPIDEMIA N EC/NOS as directed Last Documented On 7 10:38AM By HIRO HAINES MD ; [facility] Viagra 100 MG OR TABS 03/21/2014 - 09/21/2014 Provider : HIRO HAINES MD Diagnosis: Last Documented On 09/21/2014 8:24AM By Sherri HENRIQUEZ ; [facility] Viagra 100 MG OR TABS 03/21/2014 - 05/01/2015 Provider: HIRO HAINES MD Diagnosis: HYPERLIPIDEMIA N EC/NOS Last Documented On 5 3:05PM By HIRO HAINES MD ; [facility] Welchol 625 MG OR TABS 03/21/2014 - 05/30/2015 Provide r: HIRO HAINES MD Diagnosis: TAKE 6 TABLETS BY MOUTH EVERY DAY. Last Documented On 5 2:09PM By HIRO HAINES MD ; [facility] Tamsulosin HCl 0.4 MG OR CAPS 03/21/2014 - 10/03/2018 Provider: Diagnosis: Last Documented On 10/03/2018 8:24AM By JW HENRIQUEZ ; [facility] VESIcare 10 MG OR TABS 03/21/2014 - 09/25/2015 Provide r: Diagnosis: Last Documented On 09/25/2015 8:10AM By JW HENRIQUEZ ; [facility] Yamila 0.5-0.4 MG OR CAPS 11/29/2013 - 03/21/2014 Provider: HIRO HAINES MD Diagnosis: BPH W/O Urinary Obs/LUTS Last Documented On 4 8:29AM By LILIBETH ALVAREZ RN STUDENT ; [facility] Yamila 0.5-0.4 MG OR CAPS 11/17/2013 - 11/29/2013 Provider: HIRO HAINES MD Diagnosis: BPH W/O Urinary Obs/LUTS Last Documented On 4 10:53AM By CECILIA MATHIAS MA ; [facility] Welchol 625 MG OR TABS 10/12/2013 - 03/21/2014 Provide r: HIRO HAINES MD Diagnosis: TAKE 6 TABLETS BY MOUTH EVERY DAY. Last Documented On 4 9:01AM By HIRO HAINES MD ; [facility] Welchol 625 MG OR TABS 09/22/2013 - 11/17/2013 Provide r: Diagnosis: TAKE 6 TABLETS BY MOUTH EVERY DAY. Last Documented On 4 7:54AM By BULMARO HENRIQUEZ ; [facility] Welchol 625 MG OR TABS 05/18/2013 - 09/22/2013 Provide r: HIRO HAINES MD Diagnosis: TAKE SIX TABLETS BY MOUTH EVERY DAY DIRECTED Last Documented On 4 8:26AM By BULMARO HENRIQUEZ ; [facility] Levitra 20 MG OR TABS 05/05/2013 - 09/22/2013 Provider : HIRO HAINES MD Diagnosis: Last Documented On 4 8:21AM By BULMARO HENRIQUEZ ; [facility] Amoxicillin 500 MG OR CAPS 04/20/2013 - 06/21/2013 Provider: EDISON LEYVA D.O. Diagnosis: OTITIS MEDIA NOS Last Documented On 3 9:46AM By BULMARO HENRIQUEZ ; [facility] Ofloxacin 0.3% OT SOLN 04/20/2013 - 06/21/2013 Provide r: EDISON LEYVA D.O. Diagnosis: OTITIS MEDIA NOS 10 DROPS Q 12 HRS IN THE RT EAR FOR 14 DAYS Last Documented On 3 9:46AM By BULMARO HENRIQUEZ ; [facility] Welchol 625 MG OR TABS 03/09/2013 - 05/18/2013 Provide r: HIRO HAINES MD Diagnosis: TAKE SIX TABLETS BY MOUTH EVERY DAY DIRECTED Last Documented On 3 10:55AM By CECILIA MATHIAS MA ; [facility] Welchol 625 MG OR TABS 12/23/2012 - 03/09/2013 Provide r: HIRO HAINES MD Diagnosis: TAKE SIX TABLETS BY MOUTH EVERY DAY DIRECTED Last Documented On 03/09/2013 4:46PM By Sherri HENRIQUEZ ; [facility] Welchol 625 MG OR TABS 11/22/2012 - 03/22/2013 Provider: HIRO HAINES MD Diagnosis: HYPERLIPIDEMIA N EC/NOS 6 TABS A DAY Last Documented On 03/22/2013 8:36AM By Sherri HENRIQUEZ ; [facility] Welchol 625 MG OR TABS 11/22/2012 - 12/23/2012 Provide r: HIRO HAINES MD Diagnosis: 6 TABS A DAY Last Documented On 3 11:23AM By HIRO HAINES MD ; [facility] Welchol 625 MG OR TABS 10/28/2012 - 11/22/2012 Provide r: HIRO HAINES MD Diagnosis: 1 PACK DAILY Last Documented On 3 8:41AM By HIRO HAINES MD ; [facility] Levitra 20 MG OR TABS 03/29/2012 - 03/22/2013 Provider : HIRO HAINES MD Diagnosis: TAKE ONE-HALF TO ONE TABLET BY MOUTH NEEDEDNO MORE THAN ONCE DAILY Last Documented On 03/22/2013 8:38AM By Sherri HENRIQUEZ ; [facility] Cialis 5 MG OR TABS 03/07/2012 - 07/18/2012 Provider: HIRO HAINES MD Diagnosis: BPH W/O Urinary Obs/LUTS Last Documented On 07/18/2012 3:10PM By CECILIA MATHIAS MA ; [facility] Cialis 5 MG OR TABS 12/30/2011 - 03/07/2012 Provider: HIRO HAINES MD Diagnosis: BPH W/O Urinary Obs/LUTS PT GIVEN COUPON TOO FOR NEXT FILL Last Documented On 2 1:19PM By HIRO HAINES MD ; [facility] Levitra 5 MG OR TABS 10/26/2011 - 07/18/2012 Provider: CORDELIA KENNEDY PA-C Diagnosis: take one tablet one hour before sexual activity Last Documented On 07/18/2012 2:59PM By CECILIA MATHIAS MA ; [facility] Viagra 100 MG OR TABS 10/23/2011 - 07/18/2012 Provider : HIRO HAINES MD Diagnosis: TAKE 1/2 TO 1 TABLET BY MOUTH NEEDED WM Last Documented On 07/18/2012 2:59PM By CECILIA MATHIAS MA ; [facility] NexIUM 40 MG OR CPDR 06/18/2011 - 07/18/2012 Provider: HIRO HAINES MD Diagnosis: Last Documented On 07/18/2012 2:59PM By CECILIA MATHIAS MA ; [facility] EpiPen 2-Kwabena 0.3 MG/0.3ML IJ BETZAIDA 06/18/2011 - 03/22/2013 Provider: HIRO HEATH MD Diagnosis: Last Documented On 03/22/2013 8:38AM By Sherri HENRIQUEZ ; [facility] Viagra 100 MG OR TABS 03/05/2011 - 10/23/2011 Provider : HIRO HAINES MD Diagnosis: TAKE 1/2 TO 1 TABLET BY MOUTH NEEDED Last Documented On 10/23/2011 4:08PM By Sherri HENRIQUEZ ; [facility] Nasonex 50 MCG/ACT NA SUSP 06/16/2010 - 07/18/2012 Provider: HIRO HAINES MD Diagnosis: CHRONIC SINUSITI S NOS Last Documented On 07/18/2012 2:59PM By CECILIA MATHIAS MA ; [facility] Bactrim DS 800-160 MG OR TABS 06/16/2010 - 07/18/2012 Provider: HIRO HAINES MD Diagnosis: CHRONIC SINUSITI S NOS Last Documented On 07/18/2012 2:59PM By CECILIA MATHIAS MA ; [facility] Viagra 100 MG OR TABS 03/20/2009 - 03/05/2011 Provider : HIRO HAINES MD Diagnosis: 1/2-1 PRN Last Documented On 1 11:26AM By HIRO HAINES MD ; [facility] Medications Administered Includes: Administered Medications in patient's chart Medications Administered Diagnosis Date Pro vider dexAMETHasone Sodium Phospha te 10 MG/ML IJ SOLN 01/17/2021 TONO ONEIL MD administered by Dr. Oneil Last Documented On 1 12:02PM By Layla Hedrick RN ; [facility] Xylocaine 2% IJ SOLN 01/17/2021 TONO ONEIL MD administered by Dr. Oneil Last Documented On 1 12:03PM By Layla Hedrick RN ; [facility] BUPivacaine HCl 0.5% IJ SOLN 01/17/2021 TONO ONEIL MD administered by Dr. Oneil Last Documented On 1 12:04PM By Layla Hedrick RN ; [facility] Xylocaine 1% IJ SOLN 01/17/2021 TONO ONEIL MD administered by Dr. Oneil Last Documented On 1 12:00PM By Layla Hedrick RN ; [facility] Sodium Chloride 0.9% IJ SOLN 01/17/2021 TONO ONEIL MD administered by Dr. Oneil Last Documented On 1 12:01PM By Layla Hedrick RN ; [facility] Vital Signs Includes: Vital Signs from 01/13/2024 through 01/12/2025 Vital Name 01/27/2024 03:06P Height (in) 73 Blood Pressure Sitting (mmHg) 146/82 Last Documented: On 01/27/2024 3:11PM ; [facility] Results Includes: Results from 01/13/2024 through 01/12/2025 No Results Recorded For Specified Dates History of Present Illness History of Present Illness not supported for this document type No History of Present Illness Recorded Social History Description Last Updated Consuming 5 or more drinks per day None 10/05/2023 Last Documented On 4 4:06PM ; 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 Not recovering from substance abuse 09/20 Last Documented On 4 4:06PM ; [facility] Number of times used recreat ional drug/ prescription drug for nonmedical reason. None 10/05/2023 Last Documented On 4 4:06PM ; [facility] Tobacco non-user 02/28/2022 Last Documented On 2 3:43PM ; [facility] Former smoker 01/23/2022 Last Documented On 2 1:56PM ; [facility] Current nonsmoker 04/26/2021 Last Documented On 1 11:23AM ; [facility] [PHQ-2] Patient Health Questionnaire 2 i tem total score: 2 (Scale: 0-6) 12/10/2020 Last Documented On 1 11:29PM ; [facility] Difficulty walking 12/10/2020 Last Documented On 1 11:29PM ; [facility] No consumption of alcohol 12/10/2020 Last Documented On 1 11:29PM ; [facility] Not using drugs 12/10/2020 Last Documented On 1 11:29PM ; [facility] Alcohol use couple times a week; Last Documented On 1 11:47AM ; 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 04/05/2019 Last Documented On 9 9:39AM ; [facility] No tobacco use 04/05/2019 Last Documented On 9 9:39AM ; [facility] Smoking status : Never smoker 10/25/2018 Last Documented On 9 11:08AM ; [facility] Procedures and Surgical History Includes: Procedures from 01/13/2024 through 01/12/2025 Procedures Code Diagnosis Performing Provider Service Location Service Date INJECTION(S); SINGLE TENDON SHEATH, LIGAMENT, APONEUROSIS (RIGHT HAND, THIRD DIGIT) 08456 Trigger finger, right middle finger [facility] 01/27/2024 Last Documented On 4 3:17PM ; [facility] FEE (Signi/Sep Eval & Man) G0463 Trigger finger, right middle finger [facility]EDES Archer [facility] 01/27/2024 Last Documented On 4 3:17PM ; [facility] KENALOG INJECTION 10MG [id number] Trigger finger, right middle finger [facility]EDES Archer [facility] 01/27/2024 Last Documented On 4 3:17PM ; [facility] INJECTION(S); SINGLE TENDON SHEATH, LIGAMENT, APONEUROSIS (RIGHT HAND, THIRD DIGIT) [id number] Trigger finger, right middle finger [facility]ES Archer [facility] 01/27/2024 Last Documented On 4 3:17PM ; [facility] Surgical History Last Updated History of appendectomy AGE 13 ~eyelid lift faustina 3-20 ~RT carpal tunnel 06/2020 Dr. Garcia. ~LT carpal tunnel 01/2020 Dr. Garcia. ~second right carpal tunnel surgery - Dr Rdz 10/06/2022 Last Documented On 3 11:47PM ; [facility] Prior surgery 12/25/2021 Last Documented On 2 9:49AM ; [facility] No Pacemaker 12/10/2020 Last Documented On 1 11:29PM ; [facility] Medical History Includes: Medical History in patient's chart Description Last Updated No fall 02/28/2022 Last Documented On 2 3:43PM ; [facility] No recent change in medical history 10/21 Last Documented On 2 12:41PM ; [facility] No Pain Pump 12/10/2020 Last Documented On 1 11:29PM ; [facility] No Spinal cord stimulator 12/10/2020 Last Documented On 1 11:29PM ; [facility] Please list all surgeries Carpal tunnel . 12/10/2020 Last Documented On 1 11:29PM ; [facility] No exposure to a contagious disease 07/22 Last Documented On 0 5:06PM ; [facility] No exposure to a viral disease 0 Last Documented On 0 5:06PM ; [facility] Not taking OTC medications 08/13/2020 Last Documented On 0 5:06PM ; [facility] History of arthritis ~Benign prostatic h ypertrophy 07/26/2020 Last Documented On 0 3:54PM ; [facility] History of hyperlipidemia 07/26/2020 Last Documented On 0 3:54PM ; [facility] Denies a fear of falling. 07/26/2020 Last Documented On 0 3:54PM ; [facility] Has had no fall in the last 12 months. 1 09/25/2019 Last Documented On 0 3:54PM ; [facility] Family History Includes: Family History in patient's chart Description Last Updated Paternal history of stroke/paralysis Last Documented On 1 11:29PM ; [facility] Family history of high cholesterol 12/03 Last Documented On 1 11:47AM ; [facility] Family history unchanged 10/15/2017 Last Documented On 8 10:39AM ; [facility] Review of Systems Review of Systems not [...] Patient Last Documented On 05/26/2019 3:31PM ; [facility] Note: Administered @ [facility] COVID-19 Pfizer 1 01/27/2021 Com plete (Reported) Patient Last Documented On 1 10:35AM ; [facility] COVID-19 Pfizer 2 02/19/2021 Left Arm Complete (Re ported) Patient Last Documented On 1 8:28AM ; [facility] Allergies Includes: Active, inactive, and resolved Allergies Substance Type Reaction Onset Date Resolved Date Statu s Welchol Allergy CONSTIPATION 04/05/2019 Active Last Documented On 4 2:57PM ; [facility] Encounters Includes: Encounters from 01/13/2024 through 01/12/2025 Encounter Provider Location Date Check-In Time Check-Out Time Diagnosis ORTHO ESTABLISHED PATIENT [facility] 01/27/20 24 2:51PM 3:22PM Trigger Finger of Right Middle Finger Insurance Includes: Active Insurance Policies Plan Name Member ID Group # Subscriber Relationship Effect david Dates 1 - MEDICARE PART A CLAIMS/NGS [id number] ARTUR LAI Self 08/20/2011 - Unknown 2 - [employer] MEDICARE SUPPLEMENT [id number] ARTUR LAI Self Clinical Notes Includes: Signed Clinical Notes starting from 10/09/2022 * Progress note Date Encounter Last Documented by 01/27/2024 ORTHO ESTABLISHED PATIENT Last d ocumented on 01/27/2024; 3:25 PM, MERCEDES Archer; 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 Functional: Able to walk. [PHQ-2] Patient Health [...]
--- OUTSIDE RECORDS SUMMARY | 2025-01-12 12:19 | XMS_ITS | Clinical Summary ---
Author Organization [facility] Address [address] [place] [address] Phone Care Team Providers Care Operations Examiner Name Role Phone HIRO HAINES MD Primary [...] DO Active Last Documented On 2:33PM ; [facility] Past Visits Onset Date Resolved Date Provider Condition Status Tenosynovitis De Quervain's 04/30/2022 MERCEDES Archer Active Last Documented On 04/30/2022 9:27AM ; [facility] Note: left Carpal Tunnel Syndrome Right 12/25/2021 MERCEDES Archer Active Last Documented On 02/09/2022 9:53AM ; [facility] Note: right carpal tunnel revision on 08/[address] 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 TONO ONEIL MD Active Last Documented On 1 3:46PM ; [facility] Tingling of the Hands 12/06/2019 HIRO DIAZ MD Active Last Documented On 09/16/2021 1:52PM ; [facility] Note: Unchanged Sciatica 09/19/2019 OLGA LIDIA RILEY PA-C Act david Last Documented On 09/19/2019 3:30PM ; [facility] Note: --has done bee venom therapy which has helped Actinic Keratosis 12/30/2011 HIRO HAINES MD Active Last Documented On 2 3:40PM ; [facility] Benign Prostatic Hypertrophy 12/30/2011 HIRO HAINES MD Active Last Documented On 2 11:16PM ; [facility] Hyperlipidemia 01/16/2009 HIRO HAINES MD Active Last Documented On 0 2:41PM ; [facility] Plan of Treatment I discussed with Artur [...] - Last Documented On 05/27/2023 2:35PM ; [facility] Instructions to patient No reduced physical activity -release to full activities Last Documented On 3 2:30PM ; [facility] Intervention and counseling on cessation of tobacco use Last Documented On 3 1:54PM ; [facility] Education and Decision Aids were provided during visit for: Patient education about orth opedic activities Last Documented On 3 2:30PM ; [facility] Assessments Includes: Assessments from this encounter Findings - [M65.30 - Trigger finger, unspecified finger] Trigger finger (acquired) - Last Documented On 05/27/2023 2:35PM ; [facility] - [M65.331 - Trigger finger, right middle finger] Trigger finger of the right middle finger - Last Documented On 05/27/2023 2:35PM ; [facility] Instructions Includes: Instructions from this encounter Instructions to patient No reduced physical activity -release to full activities Last Documented On 3 2:30PM ; [facility] Intervention and counseling on cessation of tobacco use Last Documented On 3 1:54PM ; [facility] Education and Decision Aids were provided during visit for: Patient education about orth opedic activities Last Documented On 3 2:30PM ; [facility] Medical Equipment - Implanted Devices Includes: Current [...] 4 9:30AM By HIRO HAINES MD ; [facility] EQ Aspirin Adult Low Dose 81 MG Oral Tablet Delayed Release 07/14/2023 Provider: THIEN DU MD Diagnosis: Last Documented On 10/05/2023 8:14AM By Melany HENRIQUEZ ; [facility] Rosuvastatin Calcium 10 MG O ral Tablet 04/06/2023 Provider: HIRO Caro Diagnosis: Mixed hyperlipid emia TAKE 1 TABLET BY MOUTH AT BEDTIME Last Documented On 3 8:50AM By HIRO HAINES MD ; [facility] Melatonin 5 MG Oral Capsule 10/06/2022 Provider: Diagnosis: Last Documented On 10/06/2022 10:00AM By Melany HENRIQUEZ ; [facility] Tamsulosin HCl 0.4MG Oral Capsule 04/05/2019 Provide [...] 01/23/2022 Last Documented On 3 1:53PM ; [facility] Current nonsmoker 04/26/2021 Last Documented On 3 1:53PM ; [facility] [PHQ-2] Patient Health Questionnaire 2 i tem total score: 2 (Scale: 0-6) 12/10/2020 Last Documented On 3 1:53PM ; [facility] Difficulty walking 12/10/2020 Last Documented On 3 1:53PM ; [facility] No consumption of alcohol 12/10/2020 Last Documented On 3 1:53PM ; [facility] Not using drugs 12/10/2020 Last Documented On 3 1:53PM ; [facility] Alcohol use couple times a week; 021 Last Documented On 3 1:53PM ; [facility] Able to walk 11/04/2020 Last Documented On 3 1:53PM ; [facility] Non-smoker 07/26/2020 Last Documented On 3 1:53PM ; [facility] Currently APOLONIA (1964) ~NEFTALI 1 968 ~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 04/05/2019 Last Documented On 3 1:53PM ; [facility] No tobacco use 04/05/2019 Last Documented On 3 1:53PM ; [facility] Smoking status : Never smoker 10/25/2018 Last Documented On 3 1:53PM ; [facility] Procedures and Surgical History Includes: Procedures from this encounter Procedures Code Diagnosis Performing Provider Service Location Service Date administered intrasynovial sheath corticosteroid injection Last Documented On 3 2:30PM ; [facility] Discussed benefits, risks and alternativ es to treatment Last Documented On 3 2:30PM ; [facility] intervention and counseling on cessation of toba marketing account manager use 4000F Last Documented On 3 1:54PM ; [facility] use of tobacco assessment performed 1000F Last Documented On 3 1:54PM ; [facility] patient screened for future fall risk: documentation of any fall with injury in past year 1100F Last Documented On 3 1:54PM ; [facility] Informed consent obtained Ri sks and benefits [...] scribe Last Documented On 3 2:33PM ; [facility] Corticosteroid Injection: Ri sk and benefits are [...] [id number] Last Documented On 3 2:33PM ; [facility] Surgical History Last Updated History of appendectomy AGE 13 ~eyelid lift faustina 3-20 ~RT carpal tunnel 06/2020 Dr. Garcia. ~LT carpal tunnel 01/2020 Dr. Garcia. ~second right carpal tunnel surgery 5-22 Dr Rdz 10/06/2022 Last Documented On 3 1:53PM ; [facility] Prior surgery 12/25/2021 Last Documented On 3 1:53PM ; [facility] No Pacemaker 12/10/2020 Last Documented On 3 1:53PM ; [facility] Medical History Includes: Medical History addressed during this encounter Description Last Updated No fall 02/28/2022 Last Documented On 3 1:53PM ; [facility] No recent change in medical history 10/21 Last Documented On 3 1:53PM ; [facility] No Pain Pump 12/10/2020 Last Documented On 3 1:53PM ; [facility] No Spinal cord stimulator 12/10/2020 Last Documented On 3 1:53PM ; [facility] Please list all surgeries Carpal tunnel . 12/10/2020 Last Documented On 3 1:53PM ; [facility] No exposure to a contagious disease 07/22 Last Documented On 3 1:53PM ; [facility] No exposure to a viral disease 0 Last Documented On 3 1:53PM ; [facility] Not taking OTC medications 08/13/2020 Last Documented On 3 1:53PM ; [facility] History of arthritis ~Benign prostatic h ypertrophy 07/26/2020 Last Documented On 3 1:53PM ; [facility] History of hyperlipidemia 07/26/2020 Last Documented On 3 1:53PM ; [facility] Denies a fear of falling. 07/26/2020 Last Documented On 3 1:53PM ; [facility] Has had no fall in the last 12 months. 1 09/25/2019 Last Documented On 3 1:53PM ; [facility] Family History Includes: Family History addressed during this encounter Description Last Updated Paternal history of stroke/paralysis Last Documented On 3 1:53PM ; [facility] Family history of high cholesterol 12/03 Last Documented On 3 1:53PM ; [facility] Family history unchanged 10/15/2017 Last Documented On 3 1:53PM ; [facility] Review of Systems Includes: Review of [...] Active Last Documented On 4 2:57PM ; [facility] Encounters Encounter Provider Location Date Check-In Time Check-Out Time Diagnosis FOLLOW UP JOSE RDZ DO [facility] 05/27/20 23 1:04PM 2:35PM Tenosynovitis - Trigger Finger (Acquired),Trigge r Finger of Right Middle Finger Insurance Includes: Active Insurance Policies Plan Name Member ID Group # Subscriber Relationship Effect david Dates 1 - MEDICARE PART A CLAIMS/NGS [id number] ARTUR Neves 08/20/2011 - Unknown 2 - [employer] MEDICARE SUPPLEMENT [id number] ARTUR Neves Clinical Notes Includes: Clinical Notes from this encounter * Progress note Date Encounter Last Documented by 05/27/2023 FOLLOW UP Last documented on 05/27/2023; 2:35 PM, Nicci HENRIQUEZ; [facility] Active Problems & Conditions - L57.0 [...] Currently APOLONIA (1964) 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 Functional: Able to walk. [PHQ-2] Patient Health [...]
--- NOTE | 2025-01-12 12:22 | ECG_ITS ---
Test Date: 2025-01-12 12:38:07 Measurements Intervals [place] Rate: 69 P: 69 WY: 191 QRS: -9 QRSD: 125 T: -5 QT: 425 QTc: 457 Interpretive Statements SINUS RHYTHM RIGHT BUNDLE BRANCH BLOCK BASELINE ARTIFACT- I, II, III, AVR, AVL ABNORMAL ECG No previous ECG available for comparison Electronically Signed On 01-12-2025 13:02:15 CDT by David Franco D.O.
== END 2025-01-12 12:11 | disposition home or self-care (01) ==
LOC: ANHSURGERY 12:15
PROVIDERS: PCP Family Medicine; Visit Provider Urology
DX: Z01.818 Encounter for other preprocedural examination (principal); E78.5 Hyperlipidemia, unspecified; I45.10 Unspecified right bundle-branch block; R94.31 Abnormal electrocardiogram [ECG] [EKG]
CPT/HCPCS: 93005

== ENCOUNTER 2025-01-25 00:50 | Day surgery (SDC) | payer MEDICARE, SELFPAY ==
[2025-01-08 14:17] VITALS: BMI 27.5
--- NOTE | 2025-01-08 14:31 | PC.NURSE ---
Report to the Outpatient Waiting Room, entrance under the green pavilion located off [facility], at time _1:00pm on date ___01/25/25____. Planned Procedure Time: __3:00pm .? Time changes happen often and if your time is changed the preop area will call you the afternoon before. - You and your visitor will be asked to self-screen and do not enter if you have any COVID symptoms. Please call surgeon if you need to reschedule. - A mask is optional within the hospital at this time. Patients may have clear liquids (water, carbonated beverages, clear teas, apple juice) until 3 hours prior to surgery with a maximum of 20 ounces. - No food from midnight until time of surgery and no smoking, or chewing tobacco (or any form of nicotine). No chewing gum, candy or mints. (1200) Take only the following medications with a SIP of water on the morning of surgery: ____None DO NOT STOP ANY OF YOUR OTHER PRESCRIPTION MEDICATIONS PRIOR TO SURGERY EXCEPT THE FOLLOWING Hold all vitamins, NSAIDS ( Motrin, Aspirin, Aleve, Exedrin) and OTC supplements for 7 days per PARRES Date to take last dose 01/16/25 Please no make-up, nail indonesian, hairspray, perfume, deodorant, or body powder the day of surgery.? No jewelry (including any body piercings) or valuables the day of surgery, leave them at home.? Please take a shower or bath the night before, or the morning of, surgery with an antibacterial soap.? Wear comfortable, loose fitting clothing.? Children are encouraged to wear pajamas. - Jewelry must be removed prior to entering the operating room.? Rings and piercings that are not removed may be cut off. - The hospital will not accept responsibility for valuables.? - Please leave all valuables, including medications, at home the day of surgery. If you are going home after surgery, a licensed commercial driver must drive you home.? - NO public transportation without another adult if you receive anesthesia. - We recommend that an adult stay with you for 24 hours following discharge. - We also recommend that you do not drive, make important decision, drink alcoholic beverages, or take any drugs that were not prescribed by your health care provider for at least 24 hours after your discharge time. Follow any additional instructions given to you from your surgeon. Telephone instructions given to __Patient and asked if any additional questions and then verbalized understanding. Patient advised to call surgeon office or pre surgery nurse liaison [phone] if any additional questions.
[2025-01-25] VITALS (10 sets, daily range): BP systolic 165–194; BP diastolic 77–100; PULSE 60–72; RESP 9–23; TEMP 36.1–36.6; O2SAT 97–100
--- OUTSIDE RECORDS SUMMARY | 2025-01-25 00:54 | XMS_ITS | Clinical Summary ---
Author Organization [facility] [employer] Address [address] [place] [address] Care Team Providers Care Copyright Expert Name Role Phone Anh Jeong MD Primary Care Provider + Source Comments [facility] [employer],non-owned Affiliates and Associated Physician Practices is amultiple site organization consisting of ambulatory clinics and hospital sitesin [place], [place], [place] and [place]. This disclosure is being madepursuant to the Care Everywhere program and may not contain all information available regarding this patient. 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
--- OUTSIDE RECORDS SUMMARY | 2025-01-25 00:54 | XMS_ITS | Encounter Summary ---
Author Organization [facility] Address [address] [place] [address] Care Team Providers Care Marshmallow Maker Name Role Phone Anh Jeong MD Primary Care Provider + Encounter Details Date Type Department Care Team (Late st Contact Info) Description 02/16/2024 Lab Requisition [facility] - DermPath Lab [address] [place] [phone] Laci Foster Jr., MD [address] [place] [address] Social History Tobacco Use Types Packs/Day Years Used Date Smoking Tobacco: Never Alcohol Use Standard Drinks/Week Comments Yes 0 (1 standard drink = 0.6 oz pur e alcohol) Sex and Gender Information Value Date Recorded Sex Assigned at Not on file 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 Gender Identity Not on file Sexual Orientation Not on file documented as of this encounter Plan of Treatment Not on file documented as of this encounter Procedures Procedure Name Priority Date/Time Associated Diagnosis Comments DERMATOPATHOLOGY Routine 02/15/2024 3:33 AM CDT documented in this encounter Results * DERMATOPATHOLOGY (02/15/2024 3:33 AM CDT) Case Report Dermatopathology Report Case: [id number] Authorizing Provider: Laci Foster Jr., MD Collected: 02/15/2024 03:33 AM Ordering Location: [facility] - Received: 02/16/2024 02:21 [...] characteristic determined by the Dermatopathology Laboratory at [facility], directed by Dr. Bianca Crandall. These tests need not be, and therefore are not, approved by the [place] Food and Drug Administration. The tests are used for clinical purposes. Billing Codes Specimen Charges Stain Charges 54295 1 4 3:39 PM CDT DERMATOPATHOLOGY LABORATORY Embedded Images 3:39 PM CDT DERMATOPATHOLOGY LABORATORY Pathology/Cytolo gy TISSUE SPECIMEN FROM SKIN / Unknown 02/15/2024 3:33 AM CDT 02/16/2024 2:21 PM CDT us Laci Foster Jr., MD LAB - PATHOLOGY/CYTOLOG Y ORDERABLES Final Result DERMATOPATHOLOGY LABORATORY [facility] - Department of Dermatology [facility] [address] [phone] documented in this encounter Visit Diagnoses Not on filedocumented in this encounter Care Teams Marshmallow Maker Relationship Specialty Start Date End Date Anh Jeong MD [address] [place] [phone] PCP - General 03/26/17 documented as of this encounter
--- OUTSIDE RECORDS SUMMARY | 2025-01-25 00:55 | XMS_ITS | Clinical Summary ---
Author Organization [facility] Address [address] [place] [phone] Care Team Providers Care Claim Processing Specialist Name Role Phone Unavailable Primary Care Provider [...]
--- OUTSIDE RECORDS SUMMARY | 2025-01-25 00:55 | XMS_ITS | Clinical Summary ---
Author Organization [facility] Address [address] [place] [address] Phone Care Team Providers Care Associate Curator Name Role Phone Anh Thomas MD Primary Care Provider [phone] Orlando Singh MD Unavailable Unavailable Allergies No known active allergies Medications colesevelam (WELCHOL) 625 MG Tablet Take 1,875 mg by mouth 2 times daily. Active finasteride (PROSCAR) 5 MG Tablet Take 5 mg by mouth daily. Active nystatin-triamc inolone (MYCOLOG) 554804-3.1 UNIT/GM-% OintmentIndicat ions:Otitis externa, fungal, left ear [...] topic Insurance MEDICARE COMMERCIAL GENERIC Care Teams Associate Curator Relationship Specialty Start Date End Date Anh Thomas MD [address] [place] [address] PCP - General 02/26/16 Orlando Singh MD [address] [place] [address] Consulting Physician Urology 02/28/16
--- OUTSIDE RECORDS SUMMARY | 2025-01-25 00:55 | XMS_ITS | Encounter Summary ---
Author Organization [facility] Address [address] [place] [address] Care Team Providers Care Floral Associate Name Role Phone Anh Jeong MD Primary Care Provider + Encounter Details Date Type Department Care Team (Late st Contact Info) Description 11/03/2021 Lab Requisition [facility] DermPath Lab [address] 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 Gender Identity Not on file Sexual Orientation Not on file documented as of this encounter Plan of Treatment Not on file documented as of this encounter Procedures Procedure Name Priority Date/Time Associated Diagnosis Comments DERMATOPATHOLOGY Routine 10/31/2021 12:0 0 AM BASKET MAKER documented in this encounter Results * DERMATOPATHOLOGY (10/31/2021 12:00 AM BASKET MAKER) Case Report Dermatopathology Report Case: [id number] Authorizing Provider: Laci Foster Jr., MD Collected: 10/31/2021 12:00 AM Ordering Location: [facility] DermPath Lab Received: 11/03/2021 10:35 AM Pathologist: Citlalli Crandall MD Specimen: Skin, left ventral proximal forearm 2 5:36 PM [facility] DERMATOPATHOLOGY LABORATORY Final Diagnosis Specimen A. 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 Basal Cell Carcinoma vs. Actinic Keratosis vs. Irritated Seborrheic Keratosis. 2 5:36 PM [facility] DERMATOPATHOLOGY LABORATORY Gross Description Specimen A: Received is one formalin filled container labeled with the patient's name and designated left ventral proximal forearm. The specimen consists of a shave biopsy measuring [id number]. Jar 0. 2 5:36 PM [facility] DERMATOPATHOLOGY LABORATORY Microscopic Description Specimen A. SKIN, left ventral proximal forearm: Sections show nests of cells with pale cytoplasm and thin strands of relatively normal keratinocytes intervening. There is overlying parakeratosis. 2 5:36 PM [facility] DERMATOPATHOLOGY LABORATORY Disclaimer An external and internal positive and negative controls are appropriate for the histochemical, immunohistochemical and immunofluorescence stain(s) in this case (if any), except where stated explicitly. The performance characteristics of the stain(s) cited in this report were developed and its performance characteristic determined by the Dermatopathology Laboratory at [facility], directed by Dr. Bianca Crandall. These tests need not be, and therefore are not, approved by the [place] Food and Drug Administration. The tests are used for clinical purposes. Billing Codes Specimen Charges Stain Charges 43647 1 2 5:36 PM [facility] DERMATOPATHOLOGY LABORATORY Embedded Images 2 5:36 PM [facility] DERMATOPATHOLOGY LABORATORY Pathology/Cytolog y TISSUE SPECIMEN FROM SKIN / Unknown 10/31/2021 11/03/2021 10:35 AM [facility] Laci Foster Jr., MD LAB - PATHOLOGY/CYTOLOG Y ORDERABLES Final Result DERMATOPATHOLOGY LABORATORY [facility] - Department of Dermatology [address] [phone] documented in this encounter Visit Diagnoses Not on filedocumented in this encounter Care Teams Floral Associate Relationship Specialty Start Date End Date Anh Jeong MD [address] [place] [phone] PCP - General 03/26/17 documented as of this encounter
--- NOTE | 2025-01-25 05:54 | WPDHPUPDATE1 ---
History and Physical Update Update Date/Time: 01/25/25 05:54 History and Physical has been reviewed, including an updated exam of the patient. There are NO changes in the patient's condition. Risks, benefits, and alternatives have been discussed and questions answered. Patient agrees to proceed with procedure.
[2025-01-25] MEDS: LACTATED RINGERS 1,000 ML 30 ML IV CONT (13:30)
--- NOTE | 2025-01-25 14:03 | P.PNAN_ITS ---
Anes - Initial Pre Proc Eval Procedure: Operation Date: 01/25/25 15:00 Proposed Procedures p Cystoscopy Bladder Biopsy - Mitchel Espinosa MD Date/Time: 01/25/25 14:03 Surgeon: Mitchel Espinosa MD Pre Op Diagnosis: hematuria Patient Data Age: 79 Gender: M Height: 1.83 m Weight: 90.35 kg Last Vital Signs Temp 97.9 F 01/25/25 13:30 Pulse 64 01/25/25 13:30 Resp 14 01/25/25 13:30 BP 179/77 H 01/25/25 13:30 Pulse Ox 97 01/25/25 13:30 O2 Del Method Room Air 01/25/25 13:30 Allergies Allergy/AdvReac Type Severity Reaction Status Date / Time No Known Allergies Allergy Verified 01/25/25 13:47 Home Medications ?Medication ?Instructions ?Recorded ?Confirmed ?Type ascorbic acid (vitamin C) 1,000 mg 1 g PO DAILY 01/08/25 01/25/25 History tablet (C-1000) aspirin 81 mg chewable tablet 81 mg PO DAILY 01/08/25 01/25/25 History (Aspirin Childrens) cholecalciferol (vitamin D3) 25 25 mcg PO DAILY 01/08/25 01/25/25 History mcg (1,000 unit) chewable tablet (VitaJoy Daily D) coQ10 (liposomal ubiquinol) 8 8 mg PO DAILY 01/08/25 01/08/25 History mg/mL oral liquid cyanocobalamin (vitamin B-12) 1,000 mcg PO DAILY 01/08/25 01/25/25 History 1,000 mcg tablet (Vitamin B-12) finasteride 5 mg tablet 5 mg PO DAILY 01/08/25 01/25/25 History fluticasone propionate 50 2 spray intranasal Q12H PRN nasal 01/08/25 01/08/25 History mcg/actuation nasal congestion spray,suspension naproxen sodium 220 mg capsule 220 mg PO ONCE 01/08/25 01/25/25 History (Aleve) omega 6-kbq-lya-fish oil 1,200 mg 1 cap PO DAILY 01/08/25 01/25/25 History (144 mg-216 mg) capsule (Fish Oil) rosuvastatin 20 mg tablet 20 mg PO .MWF 01/08/25 01/25/25 History tamsulosin 0.4 mg capsule (Flomax) 0.4 mg PO HS 01/08/25 01/25/25 History vitamin B complex-folic acid 0.4 1 tablet PO DAILY 01/08/25 01/25/25 History mg tablet (B Complex 1 (with folic acid)) Patient hx anesthesia problems: none Family hx anesthesia problems: none Results Review: All pre-operative results and documents have been reviewed as part of the pre- operative evaluation. [facility] Social History Social History Smoking status: Never smoker Alcohol intake: current Drinks per week: 2 Substance use: never Living arrangements: with family Additional living arrangements comments: Spiritual care concerns: No Anes - Eval Final PreProcedure Day of Procedure 01/25/25 14:03 Patient weight: normal Heart: regular rate and rhythm Lungs: clear to auscultation Airway: Mallampati scale class II Neurological: alert and oriented Last oral intake: >/= 8 hours ASA classification: III Emergent: no Anesthetic plan: proceed Anesthesia type and monitoring: general LMA and standard monitoring Results Review: All pre-operative results and documents have been reviewed as part of the pre- operative evaluation. Informed Consent: The patient's anesthetic plan and its attendant risks and benefits were discussed with the patient/family/POA. Questions were solicited and answers provided to the satisfaction of the patient/family/POA.
[2025-01-25] MEDS: ceFAZolin 2 GM/D5W 50 ML 2 GM/50 ML BAG IVPB (15:13)
[2025-01-25] MEDS: LIDOCAINE 2% GEL UROJET 10 ML PKG MUCOUS MEM (15:25)
--- NOTE | 2025-01-25 15:54 | W.PM.PROC2 ---
Procedure Note - Detailed Date of Procedure 01/25/25 Pre-op Diagnosis Hematuria Post-op Diagnosis Same Procedure Performed Cystoscopy, bladder biopsy Surgeon Mitchel Espinosa MD Anesthesia General Description of Procedure Patient is brought to the operative suite was prepped draped in routine sterile fashion while in dorsal lithotomy position after the uneventful induction of a general anesthetic. Cystoscopy was undertaken with a 21 F rigid cystoscope. He has moderate lateral lobe hyperplasia with a high median bar but no significant median lobe. Bladder mucosa shows notable hyperemia in the left lateral wall without shaan neoplasm. Ureteral orifices are uninvolved by this and well away from the areas of hyperemia. The remainder of the bladder mucosa has a normal appearance. Using a cold cup forceps several biopsies were obtained from the area abnormal appearing mucosa. The base is cauterized with the rollerball. Cystoscope was removed and the patient has taken recovery room good condition
[2025-01-25] MEDS: fentaNYL CITRATE INJ (*CRX) 100 MCG/2 ML VIAL 25 MCG IV PUSH (16:03)
--- NOTE | 2025-01-25 16:58 | SUR.PHASEI ---
DR. NORRIS AWARE THAT PATIENT HAS NOT URINATED AND HAS PASSED SEVERAL MEDIUM-SIZED CLOTS; PATIENT STATED HE FELT BETTER AFTERWARDS; PAIN 2/3.
== END 2025-01-25 17:35 | disposition home or self-care (01) ==
PROVIDERS: PCP Family Medicine; Visit Provider Urology
PROC: 0TBB8ZX Excision of Bladder, Via Natural or Artificial Opening Endoscopic, Diagnostic (ICD-10-PCS; CPT 52204; principal; 2025-01-25 15:00)
DX: N30.90 Cystitis, unspecified without hematuria (principal); N40.1 Benign prostatic hyperplasia with lower urinary tract symptoms; E78.00 Pure hypercholesterolemia, unspecified; N52.01 Erectile dysfunction due to arterial insufficiency; R35.1 Nocturia; N48.6 Induration penis plastica; M19.90 Unspecified osteoarthritis, unspecified site; Z79.82 Long term (current) use of aspirin; Z79.1 Long term (current) use of non-steroidal anti-inflammatories (NSAID); Z98.890 Other specified postprocedural states; Z82.49 Family history of ischemic heart disease and other diseases of the circulatory system
CPT/HCPCS: 52204; 88305; J0690; J2704; J3010; J7120